=== PATIENT | male | born 1945 | race African-American/Black ===

== ENCOUNTER 2016-07-08 19:52 | Inpatient (IN) | payer BC, OTHER ==
--- NOTE | ~2016-07-08 | IDS ---
Interim Discharge Summary [facility] [address] [place]. [address] NAME: RUCHI CORMIER : 45 STATUS : ADM IN PAT#: [id number] AGE: 71 ADM/REG DATE : 07/09/16 MR#: [id number] REPORT SERV DATE: 07/19/16 DICTATED BY: LEA URIOSTEGUI DATE: 07/19/16 REPORT STATUS : Draft TRANSCRIBED BY: MODL DATE: 07/19/16 ADMISSION DATE: 07/09/2016 DISCHARGE DATE: DATE OF ICU TRANSFER: 07/09/2016. DATE OF INTERIM SUMMARY: 07/19/2016. INTERIM DIAGNOSES: 1. Acute hypoxic and hypercapnic respiratory failure. 2. Aspiration pneumonia. 3. Coronary artery disease. 4. Congestive heart failure. 5. Status post cardiac arrest on 07/16/2016. 6. Type 2 diabetes. 7. Hypoglycemia. 8. Acute renal failure. 9. Septic shock. 10.Acute encephalopathy. ICU COURSE: Please see dictated H and P and consult notes for full patient's presentation and history. BRIEF SUMMARY: The patient is a 71-year-old gentleman with a past medical history of coronary artery disease, congestive heart failure, atrial fibrillation, who initially presented to the hospital back on 07/09/2016 with some hypoglycemia and encephalopathy. This worsened shortly after admission to the floor and was accompanied by respiratory failure and concern for aspiration, and the patient was transferred to the ICU later that day, intubated for respiratory failure, and placed on the ICU. His ICU course has been complicated by septic shock, requiring intermittent vasopressors, acute renal failure, but not requiring dialysis as well as atrial fibrillation, for which Cardiology has been following and helping control. He has remained on the ventilator. At the beginning of the week when I took over, Palliative Care was seeing the patient and had talked to the patient's family, specifically the daughter, who agreed that the patient should be DNR. We had plans to extubate the patient while he was a DNR, and not reintubate him and potentially moved to comfort care if he was not going to do well. He was liberated from the ventilator on 07/16/2016 and post extubation, was not looking good. We called the family just to update them and tell them this and see if they wish to move to full comfort care. At that time, the daughter instructed us to rescind his DNR and make him full code again, and therefore we had to perform a Code Blue, because he had a bradycardic arrest. He was reintubated at that time, and placed back on the ventilator. Since then, we have gotten risk management involved to help deal with this difficult situation. For now, he still remains on the ventilator. He does have some acute encephalopathy that could be delirium, but also could be some resulting anoxic brain injury from that arrest, though he does follow commands at times, so I have a low suspicion for this. I am getting Neurology to see him today to help better assess his neurologic function. Palliative Care continues to follow Interim Discharge Summary [address] [place]. [address] NAME: RUCHI CORMIER : 45 STATUS : ADM IN [facility]#: [id number] AGE: 71 ADM/REG DATE : 07/09/16 MR#: [id number] REPORT SERV DATE: 07/19/16 DICTATED BY: LEA URIOSTEGUI DATE: 07/19/16 REPORT STATUS : Draft TRANSCRIBED BY: RANJIT DATE: 07/19/16 along with the patient as well. Otherwise, he remains on the ventilator. He is off vasopressors as his acute renal failure is stable. His heart rate is well controlled. The plan is to regroup on 07/20/2016 with Risk Management and Palliative Care talk with the family again and see exactly what they want to do. If they continue to want to proceed with full code, then likely he does need to be trached and slowly weaned from the ventilator if that is even possible or not at this time. The oncoming bander and cellophaner helper machine will take over care of the patient. Please call if you have any questions. NOLAN/RANJIT Lea Uriostegui MD / [id number] CC: Avtar Adam M.D.
--- NOTE | ~2016-07-08 | CN ---
Consultation Report [facility] [address] [place]. [address] NAME: RUCHI CORMIER : 45 STATUS : ADM IN [facility]#: [id number] AGE: 71 ADM/REG DATE : 07/09/16 MR#: [id number] REPORT SERV DATE: 07/19/16 DICTATED BY: DATE: REPORT STATUS : Draft TRANSCRIBED BY: MODL DATE: 07/19/16 NEUROLOGY CONSULTATION DATE OF CONSULTATION: 07/19/2016 REASON FOR CONSULT: Possible seizure. HISTORY OF PRESENT ILLNESS: This is a 71-year-old male with multiple medical issues and possible poor functional status prior to hospitalization, was noted to have possible aspiration pneumonia, after substitution from the patient's enteral feeding to p.o. diet, the patient was sent off. The patient in addition was also noted to have increased confusion with the patient noted to have hypoglycemic episode, was brought into the hospital during the hospitalization with having respiration difficulties, subsequently required intubation. The patient, given poor functional status, as well as a pre-existing multiple condition, was felt to have a poor prognosis. As a result, Palliative Care was consulted, who has had several extensive discussion with the family. The patient initially was placed as a DNR, was subsequently extubated and moving towards comfort, with family members retracted the EMR order and the patient subsequently had to be resuscitated secondary to bradycardia. On 07/16/2016, the patient was subsequently re-intubated, was placed on propofol, has had acute renal injury, required a Renal consult, but no dialysis. The patient was noted to have elevated BNP. Overnight, he was noted to have episodes of myoclonus. No other seizure activity was otherwise observed. No reports of seizure were otherwise recorded. No clear history of infection or recent illness prior to hospitalization. REVIEW OF SYSTEMS: Unable to be obtained secondary to the patient's intubation status. PAST MEDICAL HISTORY: The patient's past medical history is extensive, consists of type 2 diabetes, coronary artery bypass surgery, as well as atrial fibrillation and atrial flutter, with the ablation as well as AICD placement, and chronic anticoagulation prior to hospitalization. The patient, in addition, was also noted to have COPD, asthma, ischemic cardiomyopathy with coronary artery disease, and left ventricular ejection fraction of roughly 20% to 30%. The patient was also noted to have hypertension, history of pneumonia, as well as aspiration with recent cardiopulmonary resuscitation, intubation, peripheral artery disease, dyslipidemia, urinary tract infection, obstructive sleep apnea, and gastritis. FAMILY HISTORY: Significant for coronary artery disease, hypertension, dyslipidemia. The patient does have a history of previous tobacco usage, but no alcohol usage and no illicit drug usage. ALLERGIES: THE PATIENT WAS NOTED TO HAVE NO KNOWN DRUG ALLERGIES. Consultation Report [facility] [address] [place]. [address] NAME: RUCHI CORMIER : 45 STATUS : ADM IN PAT#: [id number] AGE: 71 ADM/REG DATE : 07/09/16 MR#: [id number] REPORT SERV DATE: 07/19/16 DICTATED BY: DATE: REPORT STATUS : Draft TRANSCRIBED BY: MODL DATE: 07/19/16 MEDICATIONS: At the time of evaluation, the patient's hospital medication consists of a propofol drip, Aldactone, aspirin, Colace, Dulera, DuoNeb, Proventil, Eliquis, Flomax, vancomycin, digoxin, Lipitor, melatonin, NovoLog, Protonix, Senokot, Zosyn. PHYSICAL EXAMINATION: VITAL SIGNS: At the time of evaluation, the patient was noted to have vital signs with T-max of 102.1, heart rate of 98 to 109, respiration of 17 to 26, blood pressure of 97 to 125 over 58 to 86. GENERAL: The patient is well developed, well nourished, in no acute distress. CARDIOVASCULAR: Regular rate and rhythm. No carotid bruits were otherwise auscultated. PULMONARY: Clear to auscultation bilaterally. NEUROLOGICAL EXAMINATION: Generally, the patient is intubated. He was awake, questionable, follows simple commands. At the time of evaluation, the patient does demonstrate spontaneous movement of bilateral upper and lower extremity. No clear myoclonus was observed at the time of evaluation. No seizure-like activity was observed during the evaluation. The patient was noted to be nonverbal at the time of evaluation. Cranial nerves II through XII, pupils equal, round, and reactive to light. Horizontal eye movement was noted to be trace on oculocephalic maneuver. Blink to threat response was noted in the left eye, but not in the right eye. Otherwise, the patient demonstrated corneal reflex bilaterally. Gag reflex was noted. The patient demonstrated grimace to noxious stimulation applied to bilateral jaw. The patient demonstrates spontaneous movement in bilateral upper and lower extremity, was noted to have grimace as well as withdrawal to noxious stimulation in bilateral upper and lower extremity. Hyperreflexia and mild increased tone was noted throughout bilateral upper and lower extremity at the time of evaluation. Upgoing toe on bilateral plantar reflexes. Gait and cerebellar examination is unable to be evaluated secondary to patient's current mental status. LABORATORY STUDIES: Demonstrated a white blood cell count of 19.7, hemoglobin of 8.7, hematocrit of 26.2, platelet count of 294. Chemistry panel: Sodium 144, potassium of 4.3, chloride 108, bicarb of 28, BUN of 68, creatinine 1.25, glucose of 192, calcium of 9.3, magnesium of 2.6. ABG demonstrated pH of 7.45, pCO2 of 40, pO2 of 111, bicarb of 27.4, and O2 saturation of 97.9. No neuro imaging was otherwise available. IMPRESSION: 1. Encephalopathy. 2. Seizure. The patient's medical record as well as history was reviewed. Most recently, cardiopulmonary resuscitation was performed on 07/16/2016, and the patient was subsequently re-intubated. Myoclonus jerk was noted overnight, concern for possible uremic encephalopathy, given elevated BUN level or possible metabolic disturbances or anoxic brain injury. The patient was noted to have multiple medical issues prior to hospitalization with poor functional status. Question of functional recovery as well as a future prognosis. At this time, we will obtain CT scan of the brain without Consultation Report [address] [place]. [address] NAME: RUCHI CORMIER : 45 STATUS : ADM IN [facility]#: [id number] AGE: 71 ADM/REG DATE : 07/09/16 MR#: [id number] REPORT SERV DATE: 07/19/16 DICTATED BY: DATE: REPORT STATUS : Draft TRANSCRIBED BY: MODL DATE: 07/19/16 contrast. We will obtain EEG. We will start the patient on Keppra for symptomatic myoclonus control. We will also check laboratory study. RECOMMENDATIONS: 1. Keppra 250 mg IV b.i.d. 2. EEG. 3. CT scan of the brain without contrast. 4. Ammonia, procalcitonin, vitamin B12, folate, TSH, and free T4 with morning labs. [facility]/MODL Doug Florian MD / [id number] CC: Avtar Adam M.D.
--- NOTE | ~2016-07-08 | HP ---
History And Physical [facility] [id number] [place] [place]. [address] NAME: RUCHI CORMIER : 45 STATUS : ADM [place] PAT#: [id number] AGE: 71 ADM/REG DATE : 07/09/16 MR#: [id number] REPORT SERV DATE: 07/10/16 DICTATED BY: MARILUZ RAMIREZ DATE: 07/10/16 REPORT STATUS : Draft TRANSCRIBED BY: MODL DATE: 07/10/16 DATE OF ADMISSION: 07/09/2016 This will serve as an acceptance note as we transferred the patient from the floor to the ICU. HISTORY OF PRESENT ILLNESS: Mr. Cormier is a 71-year-old with multiple medical problems who had been recovering and transitioning from feedings through the PEG tube to oral feedings, but became less responsive on the floor. A rapid response evaluation was called. Dr. Salazar from the Hospitalist Service was at the bedside. Contacted as the patient was transferred to the intensive care unit. He had become progressively more encephalopathic and less responsive throughout the day. Was more hypoglycemic. He went from walk and about in his room with assistance and being able to communicate in need to essentially becoming almost unresponsive. Upon arrival to the ICU, he was moving all extremities. He was nonfocal but profoundly encephalopathic. We then intubated and placed him on mechanical ventilation. PHYSICAL EXAMINATION: GENERAL: On exam, he was again moving all extremities but overall poorly responsive, not protecting his airway very well. HEAD: Thin frothy secretions in his oropharynx. HEENT: Normocephalic, atraumatic. NECK: Supple. No lymphadenopathy. No JVD. CHEST: Symmetric with good expansion bilaterally. He has bilateral crackles. CARDIOVASCULAR: He has S1 and S2 which are irregular. ABDOMEN: Benign. He has no edema. No clubbing. No cyanosis. ASSESSMENT AND PLAN: This patient with cardiac disease with a pacemaker, atrial fibrillation, on chronic anticoagulation, who has had an acute decompensation appears to be a combination of his cardiac disease with some pulmonary edema. Hypoglycemia noted on the floor. He is on Reglan, but has not been getting any other sedating type medications. He developed hypercapnia which would make things like pulmonary embolism less likely and was placed on mechanical ventilation. Intubation will be dictated in a separate note. The plan is for diuresis, positive pressure ventilation. Continue other maintenance medications including his anticoagulation with Eliquis for his atrial fibrillation and monitoring the intensive care unit. The patient is still full code as per family and we will monitor him in the intensive care unit. BARB/RANJIT Mariluz Ramirez M.D. / [id number] History And Physical [address] [address] NAME: RUCHI CORMIER : 45 STATUS : ADM [place] PAT#: [id number] AGE: 71 ADM/REG DATE : 07/09/16 MR#: [id number] REPORT SERV DATE: 07/10/16 DICTATED BY: MARILUZ RAMIREZ DATE: 07/10/16 REPORT STATUS : Draft TRANSCRIBED BY: RANJIT DATE: 07/10/16 CC: Chito Bazzi M.D.
--- NOTE | ~2016-07-08 | EEG ---
Electroencephalogram [facility] [address] [place]. [address] NAME: RUCHI CORMIER : 45 STATUS : ADM IN [facility]#: [id number] AGE: 71 ADM/REG DATE : 07/09/16 MR#: [id number] REPORT SERV DATE: 07/27/16 DICTATED BY: SOM BRANTLEY DATE: 07/27/16 REPORT STATUS : Draft TRANSCRIBED BY: MODEmmett DATE: 07/27/16 ELECTROENCEPHALOGRAPHY REPORT EEG NUMBER: [id number]. REASON FOR EEG: Encephalopathy. The patient remains intubated, intermittently sedated. The patient was described as awake, drowsy, sleep, and restless. Intubated off sedation in the last couple of hours prior to EEG. Video monitoring was utilized. The patient was noted to be intermittently restless, moving all four extremities. The patient was restrained. His eyes remained open. Intermittently, he would try to turn his head to the left and right. Photic stimulation was performed. The background activity consisted of moderate voltage, at times poorly organized, at times rhythmic. Theta range activity of 6-7 cycles per second located in the posterior head regions. Intermittent slower frequencies with biphasic and triphasic configuration were also noted. No paroxysmal or epileptiform activity was seen during this study. The patient's youth nutritional monitor showed atrial fibrillation, heart rate of approximately 75 to 80 beats per minute. Photic stimulation did not bring out additional abnormalities. The patient remain semi-awake and restless throughout the study. IMPRESSION: ABNORMAL EEG CHARACTERIZED BY PRESENCE OF DIFFUSE SLOWING OF CEREBRAL ACTIVITY. INTERMITTENT BIPHASIC AND TRIPHASIC WAVEFORMS SUGGEST UNDERLYING METABOLIC ENCEPHALOPATHY. THE PATIENT APPEARED TO FOCUS HIS EYES APPROPRIATELY AND MOVE ALL FOUR EXTREMITIES. THIS EEG IS COMPATIBLE WITH DIFFUSE CEREBRAL DYSFUNCTION. HOWEVER, COMPARED TO THE PREVIOUS STUDY SHOWS AN IMPROVEMENT OF OVERALL ORGANIZATION OF THE BACKGROUND ACTIVITY. CLINICAL CORRELATION IS RECOMMENDED. THIS EEG IS COMPATIBLE WITH DIFFUSE CEREBRAL DYSFUNCTION. A REPEAT EEG IS RECOMMENDED WHEN THE PATIENT REMAINS OFF SEDATION AND WHEN EXTUBATED. LORY/RANJIT Som Brantley MD / [id number] CC: DO Mehdi Collier M.D.
--- NOTE | ~2016-07-08 | EEG ---
Electroencephalogram [facility] [address] [facility] [place]. [address] NAME: RUCHI CORMIER : 45 STATUS : ADM IN PAT#: [id number] AGE: 71 ADM/REG DATE : 07/09/16 MR#: [id number] REPORT SERV DATE: 07/20/16 DICTATED BY: DATE: REPORT STATUS : Draft TRANSCRIBED BY: MODL DATE: 07/20/16 CLINICAL INDICATIONS: Encephalopathy. DESCRIPTION: This EEG was performed using 10/20 electrode placement system. During the EEG study, generalized slowing predominant occipital rhythm of roughly 5 hertz was seen. Photic stimulation was performed. No clear driving response was otherwise noted. Hyperventilation was not performed secondary to the patient's intubation status. Occasional triphasic wave was noted during the EEG study. The patient was also noted to achieve drowsy state during the EEG study. INTERPRETATION: This EEG performed during awake and drowsy state may be considered abnormal secondary to presence of generalized slowing. Otherwise, no seizure activity was noted. No electrographic seizure, seizure discharge, or focal abnormality was noted. Occasional triphasic wave was seen, concern for possible toxic metabolic etiology. Clinical correlation is recommended. [facility]/MODL Doug Florian MD / [id number] CC: Avtar Adam M.D.
--- NOTE | ~2016-07-08 | OP ---
Record Of [facility] [address] [place]. [address] NAME: RUCHI CORMIER : 45 STATUS : ADM IN [facility]#: [id number] AGE: 71 ADM/REG DATE : 07/09/16 MR#: [id number] REPORT SERV DATE: 07/16/16 DICTATED BY: LEA URIOSTEGUI DATE: 07/16/16 REPORT STATUS : Draft TRANSCRIBED BY: RANJIT DATE: 07/16/16 DATE OF PROCEDURE: 07/15/2016 TITLE OF PROCEDURE: Endotracheal intubation. INDICATION: Respiratory failure and cardiac arrest. PROCEDURE NOTE: The patient was emergently intubated during a code blue situation. No sedation was needed. The patient was easily ventilated using an Ambu bag. The MAC 4 blade was used and inserted into the oropharynx, at which time, there was a grade 2 view of the vocal cords. A 7.5-Bengali endotracheal tube was inserted and visualized going through the vocal cords. The stylet was removed. Colorimetric change was visualized on the CO2 meter. Breath sounds were heard in both lung hernández bilaterally. Endotracheal tube was placed at 22 cm, measured at the teeth. I was present for the entire procedure. Chest x-ray is ordered to assess for pneumothorax and verify endotracheal tube placement. The patient tolerated the procedure well. There were no complications. NOLAN/RANJIT Lea Uriostegui MD / [id number] CC: Avtar Adam M.D.
--- NOTE | ~2016-07-08 | IDS ---
Interim Discharge Summary [facility] [address] [place]. [address] NAME: RUCHI CORMIER : 45 STATUS : ADM IN [facility]#: [id number] AGE: 71 ADM/REG DATE : 07/09/16 MR#: [id number] REPORT SERV DATE: 08/02/16 DICTATED BY: ZELDA NAGY IV DATE: 08/02/16 REPORT STATUS : Draft TRANSCRIBED BY: RANJIT DATE: 08/02/16 ADMISSION DATE: 07/09/2016 DISCHARGE DATE: Interim discharge summary from 07/19/2016 through 08/02/2016. Updated diagnoses include: 1. Acute hypoxemic and hypercapnic respiratory failure, now status post trach on the mechanical ventilator with daily weaning trials. 2. Coagulation-negative Staphylococcus bacteremia with septic shock, resolved. 3. Aspiration pneumonia, completed therapy, now with Klebsiella, completing cefepime today. 4. Ischemic cardiomyopathy with ejection fraction 25%. 5. Status post cardiac arrest. 6. Acute encephalopathy, probably an anoxic component. 7. Seizure disorder, on medications. 8. Chronic atrial fibrillation with rate control. 9. Chronic obstructive pulmonary disease, treated with bronchodilator medication. 10.Diabetes mellitus, on insulin coverage. 11.Acute kidney injury, improved, however, with some recurrent rise in the creatinine. 12.Electrolyte abnormalities, being corrected. 13.Peripheral arterial disease. 14.Sacral decubitus with conservative care being followed by Wound Management. CONSULTANTS: Include: 1. On 07/19/2016, Neurology for possible seizure activity. 2. On 07/21/2016, Infectious Disease for a Staph bacteremia who continued to follow the patient. 3. [facility] on 07/24/2016 because of concern about vegetation, no longer following the patient. 4. On 07/24/2016, ENT, Dr. Cooper, performed tracheostomy on 07/28/2016. PROCEDURES: Include an EEG on 07/20/2016, which demonstrated generalized slowing without seizure activity, this was repeated on 07/23/2016 with similar findings. The patient had a transthoracic echocardiogram on 07/22/2016 demonstrating an ejection fraction of 15%. There was a mobile density on the anterior mitral leaflet suspicious for endocarditis for which he underwent a NIMESH on 07/27/2016, which demonstrated an ejection fraction 25%; however, with no evidence for vegetation. There was concern about a left atrial clot for which he has remained on anticoagulation therapy. The patient underwent a tracheostomy on 07/28/2016. MEDICATIONS: Aldactone 12.5 mg daily, aspirin 81 mg daily, Bumex 1 mg daily, Colace 100 mg twice a day, Coreg 12.5 mg twice a day, Dulera five puffs twice a day, DuoNebs every four hours, Eliquis 5 mg twice a day, Flomax 0.4 mg daily, Keppra 250 mg q.24 hours, Levemir 12 units twice a day, Lipitor 40 mg at bedtime, Maxipime completed today, melatonin 3 mg at bedtime, Seroquel 25 mg twice a day, and Protonix 40 mg daily. Interim Discharge Summary [address] [place]. [address] NAME: RUCHI CORMIER : 45 STATUS : ADM IN PAT#: [id number] AGE: 71 ADM/REG DATE : 07/09/16 MR#: [id number] REPORT SERV DATE: 08/02/16 DICTATED BY: ZELDA NAGY IV DATE: 08/02/16 REPORT STATUS : Draft TRANSCRIBED BY: RANJIT DATE: 08/02/16 HOSPITAL COURSE: Following the interim discharge summary on 07/19/2016, the patient had what was felt to be a possible seizure event. Neurology was consulted with EEGs demonstrating slowing, however, no evidence for seizure activity. He has remained on Keppra with again no evidence for seizure activity. He has had no improvement in his mental status. He does have his eyes open and will make eye contact, however, follows no other commands. He was on antibiotics to include vancomycin and cefepime for the Klebsiella in the sputum on tracheal aspirate as well as the recurrent coag-negative Staph on blood cultures. The both antibiotics have been completed. He has had reinstitution of his Coreg with some digoxin for rate control. He has remained anticoagulated other than transient around the time of tracheostomy, which was performed on 07/28/2016 because of persistent respiratory failure. He has had adjustments of his insulin for his diabetes with episodes of slight hypoglycemia as there has been discontinuation of his feeds. He has tolerated tube feeds, however, he has had evidence for mild ileus on KUB which has improved with stimulation of the gut with large bowel movements. He had a rise in the creatinine which subsequently improved, however, has risen recently which we will follow after discontinuation of vancomycin. He has had recurrent episodes of hyponatremia despite fairly significant volumes of free water, which have improved recently. We have instituted attempts at placement, which is currently being evaluated. The oncoming scientific writer will take over care of the patient. NM/MODL Zelda Nagy IV, M.D. / [id number] CC: DO Mehdi Collier M.D.
--- NOTE | ~2016-07-08 | CN ---
Consultation Report [facility] [address] [place]. [address] NAME: RUCHI CORMIER : 45 STATUS : ADM IN [facility]#: [id number] AGE: 71 ADM/REG DATE : 07/09/16 MR#: [id number] REPORT SERV DATE: 07/24/16 DICTATED BY: CARLEY FINLEY DATE: 07/24/16 REPORT STATUS : Draft TRANSCRIBED BY: MODEmmett DATE: 07/24/16 DATE OF CONSULTATION: 07/24/2016 SERVICE: Otolaryngology. REFERRING DIAGNOSIS: Prolonged ventilatory dependence secondary to multiple comorbidities and consultation is for placement of a tracheostomy tube. HISTORY OF PRESENT ILLNESS: This is a 71-year-old male who was admitted on 07/09, and he was intubated on 07/10 for respiratory distress, and currently is being treated for sepsis related to pneumonia. PAST MEDICAL HISTORY: Includes diabetes; coronary artery disease, status post coronary artery bypass grafting in the ; atrial fibrillation; COPD; asthma; hypertension; and peripheral artery disease. PAST SURGICAL HISTORY: As above plus placement of an AICD, cholecystectomy, and right leg surgery. SOCIAL HISTORY: He is a former smoker. His alcohol history is unclear. ALLERGIES: HE HAS NO KNOWN DRUG ALLERGIES. PHYSICAL EXAMINATION: On physical exam, he is sedated on the ventilator. He has normal palpable midline anatomy, very thin neck. ASSESSMENT: Prolonged ventilatory dependence in a 71-year-old male with multiple comorbidities and poor cardiac function. The patient is going for a NIMESH for evaluation of vegetations on the mitral valve next Wednesday. Plan would be if his clinical situation continues to be stable to place a trach on Wednesday morning or Wednesday afternoon. I discussed this briefly with the patient's family members at bedside. To note, they were not the medical decision making family members. I will follow up with the patient again over the course of the time between now and then to reassess the clinical condition. Thank you for this consult. If there are any questions, do not hesitate to call [phone]. JAKY/RANJIT Carley Finley MD / [id number] Consultation Report [place] [address] [place]. [address] NAME: RUCHI CORMIER : 45 STATUS : ADM IN PAT#: [id number] AGE: 71 ADM/REG DATE : 07/09/16 MR#: [id number] REPORT SERV DATE: 07/24/16 DICTATED BY: CARLEY FINLEY DATE: 07/24/16 REPORT STATUS : Draft TRANSCRIBED BY: MODL DATE: 07/24/16 CC: DO Mehdi Collier M.D.
--- NOTE | ~2016-07-08 | OP ---
Record Of Operation [facility] [address] [place]. [address] NAME: RUCHI CORMIER : 45 STATUS : ADM IN PAT#: [id number] AGE: 71 ADM/REG DATE : 07/09/16 MR#: [id number] REPORT SERV DATE: 07/28/16 DICTATED BY: CARLEY FINLEY DATE: 07/28/16 REPORT STATUS : Draft TRANSCRIBED BY: MODL DATE: 07/28/16 DATE OF PROCEDURE: 07/28/2016 SERVICE: Otolaryngology. PREOPERATIVE DIAGNOSIS: Prolonged ventilatory dependence. POSTOPERATIVE DIAGNOSIS: Prolonged ventilatory dependence. PROCEDURE: Tracheostomy. ANESTHESIA: General endotracheal anesthesia. COMPLICATIONS: None. SPECIMENS: None. FINDINGS: The patient had normal midline neck anatomy. STATEMENT OF MEDICAL NECESSITY: This is a 71-year-old male who has been intubated for greater than 14 days. He failed weaning attempts with very severe coronary artery disease and poor ejection fraction. My service was consulted for tracheostomy with the thought that the patient was going to require long-term ventilation. STATEMENT OF OPERATION: The patient was brought to the operating room in supine position and transferred to the operating room table. All pressure points were padded and anesthesia was established. The neck was placed in slight extension with a shoulder roll. He was then prepped and draped in usual fashion. A midline incision was made over the cricoid cartilage with a Bovie cautery. Bovie cautery was then used to dissect in the midline down to the cricoid cartilage. Once in the cricoid cartilage, a small tonsil dissecting clamp was inserted between the anterior tracheal wall and the thyroid isthmus. The isthmus was then divided with the Bovie electrocautery. Army-Boley were used to retract the thyroid lobes to either side of the neck and a cricoid hook was placed in the under surface of the cricoid cartilage and the trachea was elevated into the wound. An incision was made between the second and third tracheal ring. A Saad flap was fashioned and secured to the skin. The endotracheal tube was then advanced so that the distal tip was at the proximal tracheostomy site. A Shiley #8 cuffed trach was then placed under direct visualization into the trachea. The balloon was inflated and the anesthesia circuit was hooked up. The patient had adequate end-tidal CO2 and tidal volumes. Once this was confirmed, the trach was secured with 2-0 nylon sutures and a soft trach collar. He tolerated procedure well without complications and was transferred back to the CCU in stable condition. PS/MODL Record Of [place] [address] [place]. [address] NAME: RUCHI CORMIER : 45 STATUS : ADM IN PAT#: [id number] AGE: 71 ADM/REG DATE : 07/09/16 MR#: [id number] REPORT SERV DATE: 07/28/16 DICTATED BY: CARLEY FINLEY DATE: 07/28/16 REPORT STATUS : Draft TRANSCRIBED BY: RANJIT DATE: 07/28/16 Carley Finley MD / [id number] CC: DO Mehdi Collier M.D.
--- NOTE | ~2016-07-08 | HP ---
History And Physical [place] [id number] [facility] [place]. [address] NAME: RUCHI CORMIER : 45 STATUS : ADM [place] PAT#: [id number] AGE: 71 ADM/REG DATE : 07/09/16 MR#: [id number] REPORT SERV DATE: 07/09/16 DICTATED BY: XIOMY SINGH DATE: 07/09/16 REPORT STATUS : Draft TRANSCRIBED BY: MODL DATE: 07/09/16 DATE OF ADMISSION: 07/09/2016 CHIEF COMPLAINT: Low blood sugars and mild confusion. HISTORY OF PRESENT ILLNESS: The patient is a 71-year-old male, who presents after having been in discussion with his niece, who reported the patient had kind of confusion episode and was found to have low blood sugars. The patient was slightly not at his baseline that has been constant, moderate in severity. No pain radiating symptoms, but did have occasional shortness of breath and confusion, but no chest pain, nausea, vomiting, diarrhea, or constipation. There are no worsening symptoms, but symptoms were relieved after given blood glucose; however, the patient has required three multiple amps of D50 as his blood glucose levels have been as low as reported in the 20s, noted in the 50s to low 100s here, now at 158. The patient reports that he is back to his baseline, feeling much better. The patient incidentally has also had mildly increased BNP, but is not hypovolemic or hypervolemic. The patient was apparently in transition of increasing p.o. intake, but appears to be on the same amount of insulin and the patient reports he has not quite been eating as well due to his chronic dysphagia. REVIEW OF SYSTEMS: For additional review of systems: GENERAL: No fever, chills currently. EYES: No visual changes or pain. ENT: No ear pain or congestion. NEUROLOGIC: Did have occasional confusion, but no headache. SKIN: Does have skin breakdown on his bottom, but no bruising. RESPIRATORY: Did have shortness of breath, but no wheezing. CV: No chest pain or tachycardia. GI: No nausea, vomiting. : Did have mild dysuria and Whelan placed. No discharge. MUSCULOSKELETAL: Does have myalgias and arthralgias at his baseline. ENDOCRINE: No fatigue or polyuria, but did have low blood sugar. HEME: No bleeding or bruising acutely. IMMUNOLOGIC: No rhinorrhea. PSYCHIATRIC: No anxiety, but did have occasional confusion, but has resolved back to his baseline after blood sugar correction. PAST MEDICAL HISTORY: Type 2 diabetes, CABG history, AFib/flutter with ablation by Dr. Morris, AICD on chronic anticoagulation, obstructive lung disease from COPD, asthma combination, ischemic cardiomyopathy, coronary artery disease with LVEF 20-30%, hypertension, pneumonia history secondary to aspiration with G-tube, peripheral arterial disease, dyslipidemia, UTIs, obstructive sleep apnea, gastritis. PAST SURGICAL HISTORY: CABG in 1989, AICD, cholecystectomy, ablation, right leg surgery, and G-tube placement. History And Physical [address] [address] NAME: RUCHI CORMIER : 45 STATUS : ADM [place] PAT#: [id number] AGE: 71 ADM/REG DATE : 07/09/16 MR#: [id number] REPORT SERV DATE: 07/09/16 DICTATED BY: XIOMY SINGH DATE: 07/09/16 REPORT STATUS : Draft TRANSCRIBED BY: RANJIT DATE: 07/09/16 SOCIAL HISTORY: Prior smoker, has since quit. No acute alcohol currently or illicits. FAMILY HISTORY: Coronary artery disease, hypertension, dyslipidemia. ALLERGIES: NO KNOWN DRUG ALLERGIES. MEDICATIONS: Tylenol, Ventolin, albuterol, Eliquis, aspirin, Lipitor, Symbicort, Coreg, docusate, folic acid, Lasix, NovoLog, Toujeo, Zenpep, Prinivil, Nitrostat, Zofran, Senokot, sodium bicarb, Aldactone, and p.r.n. glucose tablets. PHYSICAL EXAMINATION: VITAL SIGNS: The patient's blood pressure 119/76, pulse 85, respirations 16, O2 sats 94% on room air. GENERAL: No acute distress. Calm, pleasant, well developed, well nourished. EYES: No scleral icterus. EOMI. ENT: Mildly dry mucous membranes. Tongue midline. RESPIRATORY: Clear to auscultation. No wheezes, rales CV: Regular rate. No rubs or gallops. No JVD. No pedal edema. GI: Soft, nontender, nondistended. G-tube in place. : Does have Whelan, currently normal external genitalia. MUSCULOSKELETAL: Does have occasional abrasions on anterior skin. Mild atrophy in extremities. SKIN: Warm, dry. Does have sacral decubs. LYMPHATIC: No lymphedema at this time in lower extremities. HEME: No acute bleeding or bruising. NEUROLOGIC: Alert and oriented. Appears back to baseline. Appropriate responses. Symmetrical cord splicer bilaterally. Normal vocal ariel. PSYCHIATRIC: Appropriate mood and affect. Pleasant and calm. LABORATORY DATA: Lactate 2.1. BNP 832.7. Current glucose 158, on arrival 72. CBC; WBC count 7.7, H and H 11.3 and 34.1, platelets 323. Urinalysis, negative leukocyte esterase and nitrites. CMP; sodium 136, potassium 4.4, chloride 95, bicarb 33, BUN and creatinine 20 and 0.58, glucose 75. Troponin 0.03. LFTs within normal limits. Alk phos 94, T-bili 1.0. EKG, none currently on chart. ASSESSMENT: 1. Hypoglycemia. 2. Congestive heart failure. 3. Diabetes type 2. 4. Chronic obstructive pulmonary disease. 5. Atrial flutter. 6. Decubitus ulcers. PLAN: 1. For hypoglycemia, the patient appears to have been in transition from diet from his tube feeds to increased p.o. intake; however, possibly still on same insulin schedule and with decreased actual p.o. intake with resultant hypoglycemia. The patient has History And Physical [address] [place]. [address] NAME: RUCHI CORMIER : 45 STATUS : ADM [place] PAT#: [id number] AGE: 71 ADM/REG DATE : 07/09/16 MR#: [id number] REPORT SERV DATE: 07/09/16 DICTATED BY: XIOMY SINGH DATE: 07/09/16 REPORT STATUS : Draft TRANSCRIBED BY: MODL DATE: 07/09/16 responded to glucose tablets, but has required multiple doses in the emergency room. We will monitor overnight, have diabetic education. Nutrition evaluate diet regimen and insulin regimen. Currently, hold all insulin regimen with before meals and at bedtime and 2 o'clock blood sugar checks. 2. CHF, not in acute exacerbation. Continue home medications. Evaluate I's and O's. 3. Diabetes type 2. Will likely need decrease of home dose diabetic education for evaluation as p.o. intake evaluated. 4. COPD compensated. 5. Atrial fibrillation on anticoagulation. Rate acceptable at this time. 6. Decubitus ulcers. Wound Care to evaluate. All questions answered to the patient. DISPOSITION: Pending evaluation for nutrition, diabetic education, stability of blood sugar, electrolytes and wound care evaluation. DDN/MODL Xiomy Singh MD / [id number] CC: Xiomy Singh MD
--- NOTE | ~2016-07-08 | OP ---
Record Of Operation [facility] [address] [place]. [address] NAME: RUCHI CORMIER : 45 STATUS : ADM [place] PAT#: [id number] AGE: 71 ADM/REG DATE : 07/09/16 MR#: [id number] REPORT SERV DATE: 07/10/16 DICTATED BY: MARILUZ RAMIREZ DATE: 07/10/16 REPORT STATUS : Draft TRANSCRIBED BY: MODL DATE: 07/10/16 DATE OF PROCEDURE: PROCEDURE PERFORMED: Oroendotracheal intubation. INDICATION: Poor responsiveness with impending respiratory failure. The patient was hypercapnic. DESCRIPTION OF PROCEDURE: The patient received 10 mL of IV propofol. Using a GlideScope #4 blade, we were able to directly visualize the vocal cords which were unimpeded and he had frothy clear secretions pooled in the back of his throat as well as some noted coming up the ET tube after intubation. We were able to advance to size 8 oroendotracheal tube beyond the vocal cords without difficulty. There was good color change on an end-tidal CO2 indicator, good auscultation of breath sounds bilaterally, and good oxygenation. We had good direct visualization of the tube being advanced beyond the vocal cords with the GlideScope and there were no complications. IMPRESSION: Successful oroendotracheal intubation for respiratory failure. BARB/RANJIT Mariluz Ramirez M.D. / [id number] CC: Chito Bazzi M.D.
--- NOTE | ~2016-07-08 | CN ---
Consultation Report [address] [place]. [address] NAME: RUCHI CORMIER : 45 STATUS : ADM IN PAT#: [id number] AGE: 71 ADM/REG DATE : 07/09/16 MR#: [id number] REPORT SERV DATE: 07/24/16 DICTATED BY: DALE MENESES DATE: 07/24/16 REPORT STATUS : Draft TRANSCRIBED BY: MODL DATE: 07/24/16 CONSULTATION DATE OF CONSULTATION: 07/24/2016 PRIMARY EXCEPTIONAL CHILDREN TEACHER ASSISTANT: Dr. Adalberto Olivares. REASON FOR CONSULTATION: Transesophageal echocardiogram evaluation, questionable infectious endocarditis. HISTORY OF PRESENT ILLNESS: Mr. Cormier is a 71-year-old gentleman with a history of atrial flutter, status post ablation, CAD, status post CABG (1989), status post PCI (2014), COPD, diabetes, hypertension, and hyperlipidemia, who was initially admitted approximately two weeks ago with respiratory failure in the setting of aspiration pneumonia. He has had a very complicated hospital stay with ongoing respiratory failure as well as temporary DNR status per palliative care that was eventually reversed by family, now with vent dependent respiratory status, likely to get a trach in the near future. He has been found to have Staph epidermidis, bacteremia, and has been evaluated by Infectious Disease with a request for completion of a transesophageal echocardiogram for evaluation of endocarditis as well as possible lead infection from his device. The patient has significant cardiac history as stated above, in addition he has ischemic cardiomyopathy and has a defibrillator implanted. PAST MEDICAL HISTORY: As above. SOCIAL HISTORY: Unable to obtain as the patient is sedated and intubated. He is known to be a prior tobacco smoker. FAMILY HISTORY: Not able to be obtained secondary to the patient being sedated and intubated. REVIEW OF SYSTEMS: Not able to obtain as the patient is sedated and intubated. HOME MEDICATIONS: 1. Tylenol. 2. Albuterol. 3. Eliquis. 4. Aspirin. 5. Atorvastatin. 6. Symbicort. 7. Coreg. 8. Colace. 9. Folate. 10.Lasix. Consultation Report [address] [place]. [address] NAME: RUCHI CORMIER : 45 STATUS : ADM IN PAT#: [id number] AGE: 71 ADM/REG DATE : 07/09/16 MR#: [id number] REPORT SERV DATE: 07/24/16 DICTATED BY: DALE MENESES DATE: 07/24/16 REPORT STATUS : Draft TRANSCRIBED BY: RANJIT DATE: 07/24/16 11.Insulin. 12.Lisinopril. 13.Nitroglycerin. 14.Zofran. 15.Senna. 16.Sodium bicarbonate. 17.Aldactone. PHYSICAL EXAMINATION: VITAL SIGNS: Blood pressure 132/71, pulse 84, temperature 99.2. GENERAL: Sedated, intubated, not responsive. NEURO: Sedated, unable to determine whether he has any focal deficits at this time. RESPIRATORY: Stable on the ventilator with transmitted breath sounds bilaterally, possibly rales. He does have decreased breath sounds throughout. CARDIOVASCULAR: Irregularly irregular. No obvious murmurs, rubs, or gallops. ABDOMEN: Soft, nontender, nondistended. No rebound or guarding. He does have a PEG tube in place. EXTREMITIES: Without edema. Note, dry gangrenous changes in his right fifth toe. PERTINENT TEST FINDINGS: Echocardiogram with severely decreased left ventricular systolic function with an estimated ejection fraction of 25%. Dilated left ventricle. Moderately decreased RV systolic function. ICD lead seen in the RV. Small mobile echodensity on the anterior mitral leaflet, possibly degenerative changes versus vegetation. Mild TR. Mykwcjzh-xz-kmqvvg [place] and a dilated left atrium, otherwise potassium 4.8, creatinine 0.89, glucose 166, white blood cell count 15.1, hemoglobin 8.9, troponin 0.03 from 07/08/2016 and EKG from 07/10/2016 on the chart shows probable atrial flutter with variable block as well as lateral T-wave inversions and inferior T-wave inversions. IMPRESSION AND PLAN: Mr. Cormier is a 71-year-old gentleman with history of atrial flutter and atrial fibrillation, coronary artery disease, status post bypass and PCI, ischemic cardiomyopathy that is severe, status post ICD, who presented to [facility] approximately two weeks ago with respiratory failure in the setting of aspiration, now with persistent Staph bacteremia and questionable infectious endocarditis. We have arranged for him to be n.p.o. after midnight on Wednesday (tube feeds to be turned off), and to proceed with a transesophageal echocardiogram as per Infectious Disease's request on Wednesday to definitively rule out endocarditis. Otherwise, we recommend continued antibiotics per the primary team for sepsis as well as appropriate support from a respiratory standpoint given ongoing respiratory failure. He has an overall poor prognosis. It will be fine to continue his cardiovascular medications, otherwise without any modification. VR/RANJIT Dale Consultation Report [place] [id number] [facility]. [address] NAME: RUCHI CORMIER : 45 STATUS : ADM IN PAT#: [id number] AGE: 71 ADM/REG DATE : 07/09/16 MR#: [id number] REPORT SERV DATE: 07/24/16 DICTATED BY: DALE MENESES DATE: 07/24/16 REPORT STATUS : Draft TRANSCRIBED BY: MODEmmett DATE: 07/24/16 MD Veronica / [id number] CC: DO Mehdi Collier M.D.
--- NOTE | ~2016-07-08 | CN ---
Consultation Report [facility] [address] [place]. [address] NAME: RUCHI CORMIER : 45 STATUS : ADM IN [facility]#: [id number] AGE: 71 ADM/REG DATE : 07/09/16 MR#: [id number] REPORT SERV DATE: 07/21/16 DICTATED BY: GABE JAMES DATE: 07/21/16 REPORT STATUS : Draft TRANSCRIBED BY: MODL DATE: 07/21/16 INFECTIOUS DISEASE CONSULT DATE OF CONSULTATION: REASON FOR CONSULT: Leukocytosis and bacteremia. HISTORY OF PRESENT ILLNESS: This is a 71 years old black man with a history of coronary artery disease, status post CABG; ischemic cardiomyopathy and atrial fibrillation, status post AICD in 2014; COPD; diabetes; hypertension; peripheral vascular disease; sleep apnea; who is at his third admission this year, this time for hypoglycemia and confusion. He was here in May, apparently with weight loss, dyspnea on exertion, cough and abdominal pain. As far as I can understand, he was treated for pneumonia and pyelonephritis. Although, I do not find any positive urine culture at that time. He was readmitted between 06/21/2016 and 07/01/2016 with weeping edematous legs, anasarca. He had respiratory failure, was intubated. Two blood cultures grew methicillin-sensitive Staph epidermidis. PEG tube was placed. It was noted he had a stage II sacral decubitus. He was discharged to senior care. He was readmitted here on 07/08/2016 or 07/09/2016 with hypoglycemia and confusion. He had no leukocytosis. Creatinine was 0.5. Lactic acid 2.1. Blood cultures were negative. C. diff test was negative. On 07/10/2016, apparently he became unresponsive, had hypercapnia. He was transferred to ICU and intubated. Developed shock, renal insufficiency and atrial fibrillation. A PICC line was placed and was given Zosyn and vancomycin. Blood cultures at that time were negative as I mentioned. Sputum culture grew normal fitz. Vancomycin was stopped on 07/13/2016, the Zosyn was continued. Given his overall condition, on 07/15/2016 it was decided to extubate him and pursue comfort care, but his POA backed off after that and rescinded the DNR order. The patient developed bradycardia and had to be coded and intubated again. He then had fevers on 07/17/2016, and sputum cultures grew abundant yeast and sparse sensitive Klebsiella. One of two blood cultures from a peripheral stick grew coagulase-negative Staph. He had fever again on 07/19/2016 when again one of two blood cultures from a peripheral stick grew coagulase- negative Staph. Vancomycin was added. There were some myoclonic movements, so Neurology was consulted. The EEG showed slowing. CT of the head showed some ethmoid secretions. He has had leukocytosis for the last three to four days. Chest x-ray shows some congestive changes. Lab work suggests some dehydration with sodium of 150, creatinine 1.3, and BUN 91. Yesterday procalcitonin was 0.7. He has not had recent bowel movements, although he is on tube feeding. Not a lot of respiratory secretions are described. He is off sedation, and he moves his extremities, but does not seem to communicate. Consultation Report [address] [place]. [address] NAME: RUCHI CORMIER : 45 STATUS : ADM IN [facility]#: [id number] AGE: 71 ADM/REG DATE : 07/09/16 MR#: [id number] REPORT SERV DATE: 07/21/16 DICTATED BY: GABE JAMES DATE: 07/21/16 REPORT STATUS : Draft TRANSCRIBED BY: RANJIT DATE: 07/21/16 PAST MEDICAL HISTORY: As I mentioned above, plus some right leg surgery and I think it might have been a right ankle surgery based on the scar. Had a laparoscopic cholecystectomy in March 2016. SOCIAL HISTORY: Cannot be obtained. According to the chart, at some point in the past, he consumed alcohol and smoked cigarettes. ALLERGIES: NONE LISTED. FAMILY HISTORY: Heart disease and hypertension. MEDICATIONS ON ADMISSION: Albuterol, Eliquis, aspirin, Lipitor, Symbicort, carvedilol, docusate, folic acid, Lasix, insulin, pancreatic enzymes, lisinopril, Senokot at bedtime, sodium bicarbonate used as needed to unclog the gastric tube, and spironolactone. PHYSICAL EXAMINATION: HEENT: I cannot examine his oral mucosa. He is intubated. Sclerae are white. He seems to move his extremities. HEART: Irregular rhythm. Grossly no murmurs. ICD pocket, without swelling or redness. LUNGS: With diffuse rales. ABDOMEN: Compressible. Seems nontender to palpation. : Whelan catheter with dark-yellow urine. Sacral area with large area of epidermal necrosis, does not appear deep. HANDS: There was one right finger that has a dark spot on the nail. Right arm PICC line with a Biopatch. ASSESSMENT/PLAN: 1. Coagulase-negative Staph bacteremia on 07/17/2016 and 07/19/2016, but each one had just one of two specimens collected from a peripheral stick. Interestingly, he had methicillin sensitive Staph epidermidis bacteremia in June 2016. 2. Respiratory failure, on ventilator. 3. Leukocytosis. 4. He appears to be dehydrated. 5. Sacral decubitus as described. 6. Coronary artery disease, status post CABG; and ischemic cardiomyopathy with congestive heart failure, status post AICD. 7. History of diabetes, hypertension, peripheral vascular disease, and chronic obstructive pulmonary disease. Need to further identify the coagulase negative Staph. See if identical strains, especially with all the positive cultures showed the same organism, would be concerned about the AICD wire infection or other form of endocarditis. I am going to request an echocardiogram. He has been on Zosyn since admission, it is about 11 days and I think it could be stopped by now. We will follow up procalcitonin and a chest x-ray. Free water was added. Overall the prognosis is guarded given the multitude of medical problems. Consultation Report [address] [place]. [address] NAME: RUCHI CORMIER : 45 STATUS : ADM IN [facility]#: [id number] AGE: 71 ADM/REG DATE : 07/09/16 MR#: [id number] REPORT SERV DATE: 07/21/16 DICTATED BY: GABE JAMES DATE: 07/21/16 REPORT STATUS : Draft TRANSCRIBED BY: MODEmmett DATE: 07/21/16 MAGDA/RANJIT Gabe James M.D. / [id number] CC: Avtar Adam M.D.
--- NOTE | ~2016-07-08 | TEE ---
Transesophageal Echocardiogram [facility] [address] [place]. [address] NAME: RUCHI CORMIER : 45 STATUS : ADM IN [facility]#: [id number] AGE: 71 ADM/REG DATE : 07/09/16 MR#: [id number] REPORT SERV DATE: 07/27/16 DICTATED BY: BALA GODINEZ DATE: 07/27/16 REPORT STATUS : Draft TRANSCRIBED BY: MODEmmett DATE: 07/27/16 TRANSESOPHAGEAL ECHOCARDIOGRAM. REASON FOR CONSULTATION: Bacteremia. PROCEDURE: After questions were answered and consents were signed, the patient was sedated with propofol per Anesthesia. The probe was placed in mid esophagus, and then finally into the stomach. Images were obtained without difficulty, and the patient tolerated the procedure well. He is recovering in the CCU. 2D INTERPRETATION: The left ventricular function was severely decreased globally on multiple views. Estimated ejection fraction is in the 25% range. The mitral valve was well visualized in multiple views. The leaflets are minimally thickened, but no prolapse was noted. No vegetation was seen. There was mild mitral regurgitation. This was a central jet. The left atrium was enlarged. Spontaneous echo contrast was noted in the left atrium and in the left atrial appendage with sludge appearing in the left atrial appendage suspicious for left atrial appendage clot. The interatrial septum was visualized in multiple views. There was no obvious color flow across the interatrial septum to suggest a PFO or ASD. The right atrium was normal in size. Catheters were noted related to a PICC line and defibrillator. No vegetations were noted on these lines. The tricuspid valve structurally was normal with no sign of vegetation. The right ventricle was normal in size and function. The aortic valve was trileaflet and was visualized in multiple views. Trace aortic insufficiency was noted. The pulmonic valve was visualized relatively well and the leaflets were seen. No obvious vegetation was seen. Mild pulmonic insufficiency was noted. The pericardium was grossly normal with no sign of pericardial effusion. The pleural effusion was noted. Moderate atherosclerotic plaquing was noted in the descending aorta and in the aortic arch. CONCLUSION: 1. SEVERELY DECREASED LEFT VENTRICULAR SYSTOLIC FUNCTION WITH ESTIMATED LVEF OF 25%. NO OBVIOUS VEGETATION NOTED ON ANY VALVE OR PACER WIRE OR LEFT ATRIAL APPENDAGE CATHETER. THESE WERE RELATIVELY WELL VISUALIZED. 2. PROBABLE LEFT ATRIAL APPENDAGE CLOT VERSUS SEVERE LOW FLOW. 3. MILD MITRAL AND PULMONIC INSUFFICIENCY. 4. MODERATE ATHEROSCLEROTIC PLAQUING IN THE AORTA AND AORTIC ARCH. WO/MODL Bala Godinez M.D., Ph.D, F.A.C.C. / [id number] CC: Jermaine Leonardo, DO Transesophageal Echocardiogram [address] [address] NAME: RUCHI CORMIER : 45 STATUS : ADM IN [facility]#: [id number] AGE: 71 ADM/REG DATE : 07/09/16 MR#: [id number] REPORT SERV DATE: 07/27/16 DICTATED BY: BALA GODINEZ DATE: 07/27/16 REPORT STATUS : Draft TRANSCRIBED BY: MODL DATE: 07/27/16 Mehdi Roberto M.D.
[~2016-07-08 19:52] MED LIST: ACTOPLUS M15 MG/850 PO; ALB4 PO; ASAB PO; BETAPACE80 PO; C5; CENTRUM TAB1 TAB PO; CORDARONE PO; COREG12 PO; COREG25 PO; COREG6 PO; DIABETA5 PO; DIGITEK0.25 MG PO; ELIQUIS 5 MG TAB5 MG PO; FISH-EPA1000 MG PO; FLONASE NAS; FORTAMET500 MG PO; GLUCOPHXR PO; GLUCOPHXR7 PO; HUMI PO; IMDUR30 PO; KLOR-CON 1010 MEQ PO; L40 PO; LIPITOR10 PO; LIPITOR20 PO; LIPITOR40 PO; MULTIVITAMI1 PO; NAP500 PO; NITROSTAT0.4 MG SL; NOVOLOG SC; OYST-CAL500 MG PO; PLAVIX PO; PRIN10 PO; PRIN2.5 PO; PRIN5 PO; PROAIR HFA INH; PROTONIX PO; PROVHFA INH; SPIRO25 PO; SYMBICORT 160/41 INH INH; SYMBICORT INH; TOUJEO SC; ULTRAM50 PO; VENTOLIN HFA INH; VICTOZA18 MG/3 ML SC; ZESTRIL10 MG PO; ZITH250 PO; ZOFRAN8 PO
[2016-07-08 20:53] LABS: BASOPHILS 0.6 %; BASOPHILS ABSOLUTE 0.05 10/3/uL (0.0-0.16); EOSINOPHILS 2.2 %; EOSINOPHILS ABSOLUTE 0.17 10/3/uL (0.0-0.53); HEMATOCRIT 34.1 % (40.0-51.0); HEMOGLOBIN 11.3 g/dL (13.6-17.8); IMMATURE GRANULOCYTES 0.5 %; IMMATURE GRANULOCYTES ABSOLUTE 0.04 10/3/uL (0.0-0.11); LYMPHOCYTES ABSOLUTE 2.86 10/3/uL (0.67-4.30); MEAN CORPUSCULAR HEMOGLOB 31.6 pg (26.0-34.0); MEAN CORPUSCULAR VOLUME 95.3 fL (80-100); MEAN PLATELET VOLUME 11.5 fL (9.2-13.0); MONOCYTES 18.9 %; MONOCYTES ABSOLUTE 1.46 10/3/uL (0.21-1.20); NEUTROPHILS 40.8 %; NEUTROPHILS ABSOLUTE 3.14 10/3/uL (2.02-8.40); RBC DISTRIBUTION WIDTH 16.3 % (12.0-16.0); RED CELL COUNT 3.58 10/6/uL (4.7-6.1); WHITE BLOOD CELLS 7.7 10/3/uL (4.5-10.5)
[2016-07-08 20:54] LABS: MANUAL DIFF NO %; MEAN CORPUS HGB CONC 33.1 g/dL (32.0-36.0); PLATELET COUNT 323 10/3/uL (150-400)
[2016-07-08 20:57] LABS: ASCORBIC ACID (UR NOT ORDER) 20 (NEG); BILIRUBIN, URINE NEGATIVE (NEG); ER URINALYSIS TAT 0 Hrs 08 Mins; KETONE, URINE NEGATIVE (NEG); LEUKOCYTE ESTERASE(NOT OR NEG (NEG); NITRITE (URINE) NEG (NEG); WBC (NOT ORDERED) (RFLEX) 1 (0-5)
[2016-07-08] MEDS ORDERED: NOVOLOG SC (22:30)
[2016-07-08] MEDS ORDERED: TOUJEO SC (22:30)
[2016-07-08] MEDS ORDERED: T PEG (22:31)
[2016-07-08] MEDS ORDERED: NITROSTAT0.4 MG SL (22:33)
[2016-07-08] MEDS ORDERED: ZENPEP5000 UNIT PEG (22:34)
[2016-07-08] MEDS ORDERED: SB325 PEG (22:35)
[2016-07-08] MEDS ORDERED: ZOFRAN8 PEG (22:35)
[2016-07-08] MEDS ORDERED: DIOCTO50 MG/5 ML PEG (22:36)
[2016-07-08] MEDS ORDERED: COREG12 PEG (22:36)
[2016-07-08] MEDS ORDERED: SPIRO25 PEG (22:36)
[2016-07-08] MEDS ORDERED: FOLIC PEG (22:36)
[2016-07-08] MEDS ORDERED: PRIN2.5 PEG (22:37)
[2016-07-08] MEDS ORDERED: ASAB PEG (22:37)
[2016-07-08] MEDS ORDERED: LIPITOR40 PEG (22:37)
[2016-07-08] MEDS ORDERED: L40 PEG (22:38)
[2016-07-08] MEDS ORDERED: SYMBICORT 160/41 INH INH (22:38)
[2016-07-08] MEDS ORDERED: VENTOLIN HFA INH (22:39)
[2016-07-08] MEDS ORDERED: SENTAB PEG (22:39)
[2016-07-08] MEDS ORDERED: DUONEB INH (22:39)
[2016-07-08] MEDS ORDERED: ELIQUIS 2.5 MG2.5 MG PEG (22:40)
[2016-07-08] MEDS ORDERED: [UNRECOGNIZED DRUG - OTHER] PO (22:43)
[2016-07-08 22:44] LABS: A/G RATIO 0.5 (0.7-1.9); ALBUMIN 2.3 G/DL (3.5-5.0); CALCIUM, SERUM 9.2 MG/DL (8.5-10.4); CHLORIDE, SERUM 95 MMOL/L (96-112); CO2 (CARBON DIOXIDE) 33 MMOL/L (24-34); CREATININE 0.58 MG/DL (0.70-1.30); GFR AFRICAN AMERICAN 119 ML/MIN (>=60); GFR NON AFRICAN AMERICAN 103 ML/MIN (>=60); GLOBULIN 5.1 G/DL (2.5-4.1); POTASSIUM, SERUM 4.4 MMOL/L (3.5-5.3); SGOT(AST) 34 U/L (5-40); SGPT(ALT) 26 U/L (5-65); SODIUM, SERUM 136 MMOL/L (135-148); TOTAL PROTEIN 7.4 G/DL (6.0-8.5); TROPONIN I 0.03 NG/ML (<0.05)
[2016-07-08 22:45] LABS: ALKALINE PHOSPHATASE 94 U/L (45-117); BUN (BLOOD UREA NITROGEN) 20 MG/DL (6-23); GLUCOSE, SERUM 75 MG/DL (60-99)
[2016-07-09 09:14] LABS: BASOPHILS 0.2 %; BASOPHILS ABSOLUTE 0.01 10/3/uL (0.0-0.16); EOSINOPHILS 2.3 %; EOSINOPHILS ABSOLUTE 0.15 10/3/uL (0.0-0.53); ER CBC TAT 0 Hrs 00 Mins; HEMATOCRIT 31.4 % (40.0-51.0); HEMOGLOBIN 10.1 g/dL (13.6-17.8); IMMATURE GRANULOCYTES 0.2 %; IMMATURE GRANULOCYTES ABSOLUTE 0.01 10/3/uL (0.0-0.11); LYMPHOCYTES 21.9 %; LYMPHOCYTES ABSOLUTE 1.45 10/3/uL (0.67-4.30); MEAN CORPUS HGB CONC 32.2 g/dL (32.0-36.0); MEAN CORPUSCULAR HEMOGLOB 30.3 pg (26.0-34.0); MEAN CORPUSCULAR VOLUME 94.3 fL (80-100); MEAN PLATELET VOLUME 11.6 fL (9.2-13.0); MONOCYTES 13.4 %; MONOCYTES ABSOLUTE 0.89 10/3/uL (0.21-1.20); NEUTROPHILS ABSOLUTE 4.12 10/3/uL (2.02-8.40); PLATELET COUNT 339 10/3/uL (150-400); RBC DISTRIBUTION WIDTH 16.1 % (12.0-16.0); RED CELL COUNT 3.33 10/6/uL (4.7-6.1); WHITE BLOOD CELLS 6.6 10/3/uL (4.5-10.5)
[2016-07-09 09:18] LABS: MANUAL DIFF NO %
[2016-07-09 09:25] LABS: BUN (BLOOD UREA NITROGEN) 15 MG/DL (6-23); CALCIUM, SERUM 8.7 MG/DL (8.5-10.4); CHLORIDE, SERUM 93 MMOL/L (96-112); CO2 (CARBON DIOXIDE) 38 MMOL/L (24-34); CREATININE 0.45 MG/DL (0.70-1.30); GFR AFRICAN AMERICAN 132 ML/MIN (>=60); GFR NON AFRICAN AMERICAN 114 ML/MIN (>=60); GLUCOSE, SERUM 132 MG/DL (60-99); POTASSIUM, SERUM 4.4 MMOL/L (3.5-5.3); SODIUM, SERUM 137 MMOL/L (135-148)
[2016-07-10 04:23] LABS: BE (BASE EXCESS) 2.9 MEQ/L (0 +/- 2.5); CARBOXYHEMOGLOBIN 0.9 % (0-3); HCO3 (ACTUAL BICARBONATE) 30.3 MEQ/L (23-27); HEMOBLOGIN CONTENT 12.8 G/DL (14-18); INSTRUMENT SERIAL # 8083; METHEMOGLOBIN 0.8 % (0-3); MODE PCV 30; O2 CONTENT 16.9 VOL% (18-24); OPERATOR ID 14661; PCO2 (CO2 TENSION) 59 MMHG (35-45); PO2 (O2 TENSION) 82 MMHG (79-93); SAMPLE Arterial; pH 7.33 (7.37-7.43)
[2016-07-10 04:54] LABS: CALCIUM, SERUM 8.5 MG/DL (8.5-10.4); CHLORIDE, SERUM 101 MMOL/L (96-112); CO2 (CARBON DIOXIDE) 30 MMOL/L (24-34); GFR AFRICAN AMERICAN 67 ML/MIN (>=60); GFR NON AFRICAN AMERICAN 58 ML/MIN (>=60); GLUCOSE, SERUM 121 MG/DL (60-99); PHOSPHORUS, SERUM 3.3 MG/DL (2.5-4.5); POTASSIUM, SERUM 5.3 MMOL/L (3.5-5.3); SODIUM, SERUM 138 MMOL/L (135-148)
[2016-07-10 04:55] LABS: BUN (BLOOD UREA NITROGEN) 23 MG/DL (6-23); CREATININE 1.24 MG/DL (0.70-1.30)
[2016-07-10 05:23] LABS: BASOPHILS 0.1 %; BASOPHILS ABSOLUTE 0.01 10/3/uL (0.0-0.16); EOSINOPHILS 0.2 %; EOSINOPHILS ABSOLUTE 0.02 10/3/uL (0.0-0.53); HEMOGLOBIN 10.4 g/dL (13.6-17.8); IMMATURE GRANULOCYTES 0.2 %; IMMATURE GRANULOCYTES ABSOLUTE 0.02 10/3/uL (0.0-0.11); LYMPHOCYTES 9.7 %; LYMPHOCYTES ABSOLUTE 1.05 10/3/uL (0.67-4.30); MEAN CORPUS HGB CONC 32.5 g/dL (32.0-36.0); MEAN CORPUSCULAR VOLUME 95.2 fL (80-100); MEAN PLATELET VOLUME 12.1 fL (9.2-13.0); MONOCYTES 7.2 %; MONOCYTES ABSOLUTE 0.78 10/3/uL (0.21-1.20); NEUTROPHILS 82.6 %; PLATELET COUNT 333 10/3/uL (150-400); RBC DISTRIBUTION WIDTH 16.1 % (12.0-16.0); RED CELL COUNT 3.36 10/6/uL (4.7-6.1)
[2016-07-10 05:32] LABS: MANUAL DIFF NO %; WHITE BLOOD CELLS 10.9 10/3/uL (4.5-10.5)
[2016-07-10 05:59] LABS: PROCALCITONIN 2.96 ng/mL (<0.5)
[2016-07-10 14:30] LABS: A/G RATIO 0.5 (0.7-1.9); ALBUMIN 2.2 G/DL (3.5-5.0); GLOBULIN 4.2 G/DL (2.5-4.1); PREALBUMIN 6.4 MG/DL (17.0-43.0); SGOT(AST) 45 U/L (5-40); SGPT(ALT) 23 U/L (5-65); TOTAL PROTEIN 6.4 G/DL (6.0-8.5)
[2016-07-10 14:31] LABS: ALKALINE PHOSPHATASE 79 U/L (45-117); TOTAL BILIRUBIN 1.5 MG/DL (0-1.2)
[2016-07-10 16:55] LABS: BUN (BLOOD UREA NITROGEN) 25 MG/DL (6-23); CALCIUM, SERUM 8.6 MG/DL (8.5-10.4); CHLORIDE, SERUM 103 MMOL/L (96-112); CO2 (CARBON DIOXIDE) 27 MMOL/L (24-34); CREATININE 1.43 MG/DL (0.70-1.30); GFR AFRICAN AMERICAN 57 ML/MIN (>=60); GFR NON AFRICAN AMERICAN 49 ML/MIN (>=60); GLUCOSE, SERUM 206 MG/DL (60-99); POTASSIUM, SERUM 4.8 MMOL/L (3.5-5.3); SODIUM, SERUM 138 MMOL/L (135-148)
[2016-07-11 04:01] LABS: BASOPHILS 0.2 %; BASOPHILS ABSOLUTE 0.02 10/3/uL (0.0-0.16); EOSINOPHILS 0.2 %; EOSINOPHILS ABSOLUTE 0.03 10/3/uL (0.0-0.53); HEMATOCRIT 33.4 % (40.0-51.0); IMMATURE GRANULOCYTES 0.2 %; IMMATURE GRANULOCYTES ABSOLUTE 0.03 10/3/uL (0.0-0.11); LYMPHOCYTES 14.3 %; LYMPHOCYTES ABSOLUTE 1.73 10/3/uL (0.67-4.30); MEAN CORPUS HGB CONC 32.9 g/dL (32.0-36.0); MEAN CORPUSCULAR HEMOGLOB 30.6 pg (26.0-34.0); MEAN PLATELET VOLUME 11.6 fL (9.2-13.0); MONOCYTES 10.1 %; MONOCYTES ABSOLUTE 1.22 10/3/uL (0.21-1.20); NEUTROPHILS ABSOLUTE 9.09 10/3/uL (2.02-8.40); PLATELET COUNT 325 10/3/uL (150-400); RBC DISTRIBUTION WIDTH 16.2 % (12.0-16.0); RED CELL COUNT 3.59 10/6/uL (4.7-6.1); WHITE BLOOD CELLS 12.1 10/3/uL (4.5-10.5)
[2016-07-11 04:03] LABS: MANUAL DIFF NO %
[2016-07-11 04:05] LABS: HCO3 (ACTUAL BICARBONATE) 27.2 MEQ/L (23-27); HEMOBLOGIN CONTENT 11.9 G/DL (14-18); INSTRUMENT SERIAL # 35151; MODE PCV +30; O2 CONTENT 16.4 VOL% (18-24); PCO2 (CO2 TENSION) 36 MMHG (35-45); PO2 (O2 TENSION) 107 MMHG (79-93); SAMPLE Arterial
[2016-07-11 04:44] LABS: ALBUMIN 2.1 G/DL (3.5-5.0); BUN (BLOOD UREA NITROGEN) 24 MG/DL (6-23); CALCIUM, SERUM 9.2 MG/DL (8.5-10.4); CHLORIDE, SERUM 109 MMOL/L (96-112); CO2 (CARBON DIOXIDE) 28 MMOL/L (24-34); CREATININE 1.14 MG/DL (0.70-1.30); GFR AFRICAN AMERICAN 75 ML/MIN (>=60); GFR NON AFRICAN AMERICAN 64 ML/MIN (>=60); GLUCOSE, SERUM 151 MG/DL (60-99); PHOSPHORUS, SERUM 1.3 MG/DL (2.5-4.5); POTASSIUM, SERUM 3.7 MMOL/L (3.5-5.3); SODIUM, SERUM 144 MMOL/L (135-148)
[2016-07-11 05:13] LABS: PROCALCITONIN 3.03 ng/mL (<0.5)
[2016-07-11 19:35] LABS: CALCIUM, SERUM 8.7 MG/DL (8.5-10.4); CHLORIDE, SERUM 110 MMOL/L (96-112); CO2 (CARBON DIOXIDE) 28 MMOL/L (24-34); CREATININE 0.96 MG/DL (0.70-1.30); GFR AFRICAN AMERICAN 92 ML/MIN (>=60); GFR NON AFRICAN AMERICAN 79 ML/MIN (>=60); POTASSIUM, SERUM 3.5 MMOL/L (3.5-5.3); SODIUM, SERUM 146 MMOL/L (135-148)
[2016-07-11 19:39] LABS: BUN (BLOOD UREA NITROGEN) 28 MG/DL (6-23); GLUCOSE, SERUM 105 MG/DL (60-99); PHOSPHORUS, SERUM 2.1 MG/DL (2.5-4.5)
[2016-07-12 03:50] LABS: ALLENS TEST Pos; BE (BASE EXCESS) 1.4 MEQ/L (0 +/- 2.5); CARBOXYHEMOGLOBIN 0.3 % (0-3); HCO3 (ACTUAL BICARBONATE) 22.4 MEQ/L (23-27); HEMOBLOGIN CONTENT 11.6 G/DL (14-18); INSTRUMENT SERIAL # 35151; METHEMOGLOBIN 0.7 % (0-3); MODE PCV; O2 CONTENT 16.2 VOL% (18-24); OPERATOR ID 17537; PCO2 (CO2 TENSION) 25 MMHG (35-45); PO2 (O2 TENSION) 129 MMHG (79-93); SAMPLE Arterial; pH 7.57 (7.37-7.43)
[2016-07-12 06:03] LABS: BASOPHILS 0.3 %; BASOPHILS ABSOLUTE 0.03 10/3/uL (0.0-0.16); HEMATOCRIT 34.1 % (40.0-51.0); HEMOGLOBIN 11.2 g/dL (13.6-17.8); IMMATURE GRANULOCYTES 0.3 %; IMMATURE GRANULOCYTES ABSOLUTE 0.03 10/3/uL (0.0-0.11); LYMPHOCYTES 23.9 %; MANUAL DIFF NO %; MEAN CORPUS HGB CONC 32.8 g/dL (32.0-36.0); MEAN CORPUSCULAR HEMOGLOB 29.7 pg (26.0-34.0); MEAN CORPUSCULAR VOLUME 90.5 fL (80-100); MEAN PLATELET VOLUME 11.7 fL (9.2-13.0); MONOCYTES ABSOLUTE 1.47 10/3/uL (0.21-1.20); NEUTROPHILS 60.5 %; NEUTROPHILS ABSOLUTE 6.34 10/3/uL (2.02-8.40); PLATELET COUNT 274 10/3/uL (150-400); RBC DISTRIBUTION WIDTH 16.5 % (12.0-16.0); RED CELL COUNT 3.77 10/6/uL (4.7-6.1); WHITE BLOOD CELLS 10.5 10/3/uL (4.5-10.5)
[2016-07-12 06:19] LABS: A/G RATIO 0.4 (0.7-1.9); ALBUMIN 2.1 G/DL (3.5-5.0); ALKALINE PHOSPHATASE 72 U/L (45-117); BUN (BLOOD UREA NITROGEN) 30 MG/DL (6-23); CALCIUM, SERUM 8.7 MG/DL (8.5-10.4); CHLORIDE, SERUM 111 MMOL/L (96-112); CO2 (CARBON DIOXIDE) 24 MMOL/L (24-34); GFR AFRICAN AMERICAN 87 ML/MIN (>=60); GFR NON AFRICAN AMERICAN 75 ML/MIN (>=60); GLOBULIN 4.7 G/DL (2.5-4.1); GLUCOSE, SERUM 139 MG/DL (60-99); SGPT(ALT) 23 U/L (5-65); SODIUM, SERUM 145 MMOL/L (135-148); TOTAL BILIRUBIN 1.1 MG/DL (0-1.2); TOTAL PROTEIN 6.8 G/DL (6.0-8.5)
[2016-07-12 06:20] LABS: PHOSPHORUS, SERUM 3.6 MG/DL (2.5-4.5); POTASSIUM, SERUM 4.8 MMOL/L (3.5-5.3); SGOT(AST) 45 U/L (5-40)
[2016-07-13 04:13] LABS: ALLENS TEST Pos; BE (BASE EXCESS) 2.2 MEQ/L (0 +/- 2.5); CARBOXYHEMOGLOBIN 0.3 % (0-3); HCO3 (ACTUAL BICARBONATE) 26.2 MEQ/L (23-27); HEMOBLOGIN CONTENT 11.4 G/DL (14-18); INSTRUMENT SERIAL # 35151; METHEMOGLOBIN 0.7 % (0-3); MODE CMV; O2 CONTENT 15.6 VOL% (18-24); OPERATOR ID 23712; PCO2 (CO2 TENSION) 39 MMHG (35-45); PO2 (O2 TENSION) 103 MMHG (79-93); SAMPLE Arterial; TIDAL VOLUME 500 ML; pH 7.45 (7.37-7.43)
[2016-07-13 04:49] LABS: BASOPHILS 0.7 %; BASOPHILS ABSOLUTE 0.07 10/3/uL (0.0-0.16); EOSINOPHILS ABSOLUTE 0.31 10/3/uL (0.0-0.53); HEMATOCRIT 31.8 % (40.0-51.0); HEMOGLOBIN 10.3 g/dL (13.6-17.8); IMMATURE GRANULOCYTES 0.4 %; IMMATURE GRANULOCYTES ABSOLUTE 0.04 10/3/uL (0.0-0.11); LYMPHOCYTES ABSOLUTE 3.03 10/3/uL (0.67-4.30); MEAN CORPUS HGB CONC 32.4 g/dL (32.0-36.0); MEAN CORPUSCULAR HEMOGLOB 31.1 pg (26.0-34.0); MEAN PLATELET VOLUME 11.3 fL (9.2-13.0); MONOCYTES 11.8 %; MONOCYTES ABSOLUTE 1.23 10/3/uL (0.21-1.20); NEUTROPHILS 55.1 %; NEUTROPHILS ABSOLUTE 5.78 10/3/uL (2.02-8.40); PLATELET COUNT 283 10/3/uL (150-400); RBC DISTRIBUTION WIDTH 16.7 % (12.0-16.0); RED CELL COUNT 3.31 10/6/uL (4.7-6.1); WHITE BLOOD CELLS 10.5 10/3/uL (4.5-10.5)
[2016-07-13 04:52] LABS: MANUAL DIFF NO %; MEAN CORPUSCULAR VOLUME 96.1 fL (80-100)
[2016-07-13 05:05] LABS: ALBUMIN 1.9 G/DL (3.5-5.0); BUN (BLOOD UREA NITROGEN) 33 MG/DL (6-23); CALCIUM, SERUM 8.7 MG/DL (8.5-10.4); CHLORIDE, SERUM 112 MMOL/L (96-112); CO2 (CARBON DIOXIDE) 25 MMOL/L (24-34); CREATININE 0.73 MG/DL (0.70-1.30); GFR AFRICAN AMERICAN 108 ML/MIN (>=60); GFR NON AFRICAN AMERICAN 93 ML/MIN (>=60); GLUCOSE, SERUM 119 MG/DL (60-99); PHOSPHORUS, SERUM 3.4 MG/DL (2.5-4.5); POTASSIUM, SERUM 4.5 MMOL/L (3.5-5.3); SODIUM, SERUM 145 MMOL/L (135-148)
[2016-07-13 06:08] LABS: PROCALCITONIN 1.16 ng/mL (<0.5)
[2016-07-14 04:08] LABS: BASOPHILS 0.3 %; BASOPHILS ABSOLUTE 0.03 10/3/uL (0.0-0.16); EOSINOPHILS 3.9 %; EOSINOPHILS ABSOLUTE 0.41 10/3/uL (0.0-0.53); HEMATOCRIT 30.7 % (40.0-51.0); IMMATURE GRANULOCYTES 0.8 %; IMMATURE GRANULOCYTES ABSOLUTE 0.08 10/3/uL (0.0-0.11); LYMPHOCYTES 24.5 %; LYMPHOCYTES ABSOLUTE 2.59 10/3/uL (0.67-4.30); MANUAL DIFF NO %; MEAN CORPUS HGB CONC 32.6 g/dL (32.0-36.0); MEAN CORPUSCULAR HEMOGLOB 30.6 pg (26.0-34.0); MEAN CORPUSCULAR VOLUME 93.9 fL (80-100); MEAN PLATELET VOLUME 11.7 fL (9.2-13.0); MONOCYTES 12.6 %; MONOCYTES ABSOLUTE 1.33 10/3/uL (0.21-1.20); NEUTROPHILS 57.9 %; NEUTROPHILS ABSOLUTE 6.15 10/3/uL (2.02-8.40); PLATELET COUNT 277 10/3/uL (150-400); RBC DISTRIBUTION WIDTH 16.3 % (12.0-16.0); RED CELL COUNT 3.27 10/6/uL (4.7-6.1); WHITE BLOOD CELLS 10.6 10/3/uL (4.5-10.5)
[2016-07-14 04:19] LABS: BUN (BLOOD UREA NITROGEN) 34 MG/DL (6-23); CHLORIDE, SERUM 111 MMOL/L (96-112); CO2 (CARBON DIOXIDE) 26 MMOL/L (24-34); CREATININE 0.63 MG/DL (0.70-1.30); GFR AFRICAN AMERICAN 115 ML/MIN (>=60); GFR NON AFRICAN AMERICAN 99 ML/MIN (>=60); GLUCOSE, SERUM 97 MG/DL (60-99); PHOSPHORUS, SERUM 2.3 MG/DL (2.5-4.5); POTASSIUM, SERUM 4.3 MMOL/L (3.5-5.3); SODIUM, SERUM 146 MMOL/L (135-148)
[2016-07-15 05:15] LABS: BASOPHILS 0.4 %; BASOPHILS ABSOLUTE 0.04 10/3/uL (0.0-0.16); EOSINOPHILS 3.5 %; EOSINOPHILS ABSOLUTE 0.37 10/3/uL (0.0-0.53); HEMATOCRIT 31.9 % (40.0-51.0); HEMOGLOBIN 10.5 g/dL (13.6-17.8); IMMATURE GRANULOCYTES 1.1 %; IMMATURE GRANULOCYTES ABSOLUTE 0.12 10/3/uL (0.0-0.11); LYMPHOCYTES 23.9 %; MANUAL DIFF NO %; MEAN CORPUS HGB CONC 32.9 g/dL (32.0-36.0); MEAN CORPUSCULAR HEMOGLOB 30.8 pg (26.0-34.0); MEAN CORPUSCULAR VOLUME 93.5 fL (80-100); MEAN PLATELET VOLUME 11.2 fL (9.2-13.0); MONOCYTES 15.4 %; MONOCYTES ABSOLUTE 1.61 10/3/uL (0.21-1.20); NEUTROPHILS 55.7 %; NEUTROPHILS ABSOLUTE 5.81 10/3/uL (2.02-8.40); PLATELET COUNT 295 10/3/uL (150-400); RBC DISTRIBUTION WIDTH 16.3 % (12.0-16.0); RED CELL COUNT 3.41 10/6/uL (4.7-6.1); WHITE BLOOD CELLS 10.5 10/3/uL (4.5-10.5)
[2016-07-15 05:29] LABS: BUN (BLOOD UREA NITROGEN) 35 MG/DL (6-23); CALCIUM, SERUM 9.1 MG/DL (8.5-10.4); CHLORIDE, SERUM 108 MMOL/L (96-112); CO2 (CARBON DIOXIDE) 27 MMOL/L (24-34); GFR AFRICAN AMERICAN 110 ML/MIN (>=60); GFR NON AFRICAN AMERICAN 95 ML/MIN (>=60); PHOSPHORUS, SERUM 2.9 MG/DL (2.5-4.5); POTASSIUM, SERUM 3.9 MMOL/L (3.5-5.3); SODIUM, SERUM 144 MMOL/L (135-148)
[2016-07-15 05:30] LABS: GLUCOSE, SERUM 123 MG/DL (60-99)
[2016-07-16 04:05] LABS: BASOPHILS 0.3 %; BASOPHILS ABSOLUTE 0.04 10/3/uL (0.0-0.16); EOSINOPHILS 0.8 %; EOSINOPHILS ABSOLUTE 0.12 10/3/uL (0.0-0.53); HEMATOCRIT 30.5 % (40.0-51.0); HEMOGLOBIN 10.2 g/dL (13.6-17.8); IMMATURE GRANULOCYTES 0.9 %; IMMATURE GRANULOCYTES ABSOLUTE 0.13 10/3/uL (0.0-0.11); LYMPHOCYTES 14.2 %; LYMPHOCYTES ABSOLUTE 2.17 10/3/uL (0.67-4.30); MEAN CORPUS HGB CONC 33.4 g/dL (32.0-36.0); MEAN CORPUSCULAR HEMOGLOB 31.9 pg (26.0-34.0); MEAN CORPUSCULAR VOLUME 95.3 fL (80-100); MEAN PLATELET VOLUME 11.7 fL (9.2-13.0); MONOCYTES 14.3 %; MONOCYTES ABSOLUTE 2.18 10/3/uL (0.21-1.20); NEUTROPHILS 69.5 %; NEUTROPHILS ABSOLUTE 10.61 10/3/uL (2.02-8.40); PLATELET COUNT 309 10/3/uL (150-400)
[2016-07-16 04:06] LABS: MANUAL DIFF NO %; WHITE BLOOD CELLS 15.3 10/3/uL (4.5-10.5)
[2016-07-16 04:21] LABS: CALCIUM, SERUM 8.7 MG/DL (8.5-10.4); CHLORIDE, SERUM 106 MMOL/L (96-112); CO2 (CARBON DIOXIDE) 27 MMOL/L (24-34); CREATININE 0.97 MG/DL (0.70-1.30); GFR AFRICAN AMERICAN 91 ML/MIN (>=60); GFR NON AFRICAN AMERICAN 78 ML/MIN (>=60); PHOSPHORUS, SERUM 2.7 MG/DL (2.5-4.5); POTASSIUM, SERUM 4.2 MMOL/L (3.5-5.3); SODIUM, SERUM 142 MMOL/L (135-148)
[2016-07-16 04:22] LABS: BUN (BLOOD UREA NITROGEN) 31 MG/DL (6-23); GLUCOSE, SERUM 151 MG/DL (60-99)
[2016-07-17 05:49] LABS: BUN (BLOOD UREA NITROGEN) 44 MG/DL (6-23); CALCIUM, SERUM 9.2 MG/DL (8.5-10.4); CHLORIDE, SERUM 109 MMOL/L (96-112); CO2 (CARBON DIOXIDE) 26 MMOL/L (24-34); GFR AFRICAN AMERICAN 87 ML/MIN (>=60); GFR NON AFRICAN AMERICAN 75 ML/MIN (>=60); GLUCOSE, SERUM 207 MG/DL (60-99); POTASSIUM, SERUM 4.1 MMOL/L (3.5-5.3); SODIUM, SERUM 143 MMOL/L (135-148)
[2016-07-17 06:12] LABS: HEMATOCRIT 31.2 % (40.0-51.0); HEMOGLOBIN 10.2 g/dL (13.6-17.8); MEAN CORPUS HGB CONC 32.7 g/dL (32.0-36.0); MEAN CORPUSCULAR HEMOGLOB 30.8 pg (26.0-34.0); MEAN CORPUSCULAR VOLUME 94.3 fL (80-100); MEAN PLATELET VOLUME 11.3 fL (9.2-13.0); PLATELET COUNT 295 10/3/uL (150-400); RBC DISTRIBUTION WIDTH 16.1 % (12.0-16.0); RED CELL COUNT 3.31 10/6/uL (4.7-6.1); WHITE BLOOD CELLS 15.3 10/3/uL (4.5-10.5)
[2016-07-17 06:17] LABS: MANUAL DIFF YES %
[2016-07-17 06:44] LABS: BAND NEUTROPHILS 2 %; BASOPHILS 2 %; BASOPHILS ABSOLUTE (CALC) 0.31 10/3/uL (0.0-0.16); EOSINOPHILS 1 %; EOSINOPHILS ABSOLUTE (CALC) 0.15 10/3/uL (0.0-0.53); IMMATURE GRANS ABSOLUTE (CALC) 0.15 10/3/uL (0.0-0.11); LYMPHOCYTES 16 %; LYMPHOCYTES ABSOLUTE (CALC) 2.45 10/3/uL (0.67-4.30); MONOCYTES 19 %; MONOCYTES ABSOLUTE (CALC) 2.91 10/3/uL (0.21-1.20); MYELOCYTES 1 %; NEUTROPHILS ABSOLUTE (CALC) 9.33 10/3/uL (2.02-8.40); PLATELET ESTIMATE ADQ (ADEQUATE); RBC MORPHOLOGY NORM (NORMAL); SEGMENTED NEUTROPHIL (0) 59 %; TOTAL NUCLEATED CELLS 100
[2016-07-17 10:34] LABS: ASCORBIC ACID (UR NOT ORDER) 40 (NEG); BILIRUBIN, URINE NEGATIVE (NEG); KETONE, URINE NEGATIVE (NEG); LEUKOCYTE ESTERASE(NOT OR TRACE (NEG); WBC (NOT ORDERED) (RFLEX) 5 (0-5)
[2016-07-17 11:46] LABS: PROCALCITONIN 0.49 ng/mL (<0.5)
[2016-07-18 05:15] LABS: CALCIUM, SERUM 9.6 MG/DL (8.5-10.4); CHLORIDE, SERUM 108 MMOL/L (96-112); CO2 (CARBON DIOXIDE) 27 MMOL/L (24-34); CREATININE 1.11 MG/DL (0.70-1.30); GFR AFRICAN AMERICAN 77 ML/MIN (>=60); GFR NON AFRICAN AMERICAN 66 ML/MIN (>=60); GLUCOSE, SERUM 207 MG/DL (60-99); PHOSPHORUS, SERUM 2.4 MG/DL (2.5-4.5); POTASSIUM, SERUM 4.1 MMOL/L (3.5-5.3); SODIUM, SERUM 144 MMOL/L (135-148)
[2016-07-18 05:16] LABS: BUN (BLOOD UREA NITROGEN) 61 MG/DL (6-23)
[2016-07-18 05:25] LABS: HEMOGLOBIN 8.9 g/dL (13.6-17.8); MEAN CORPUS HGB CONC 33.7 g/dL (32.0-36.0); MEAN CORPUSCULAR HEMOGLOB 32.8 pg (26.0-34.0); MEAN PLATELET VOLUME 11.1 fL (9.2-13.0); PLATELET COUNT 324 10/3/uL (150-400); RBC DISTRIBUTION WIDTH 16.5 % (12.0-16.0); RED CELL COUNT 2.71 10/6/uL (4.7-6.1)
[2016-07-18 05:26] LABS: HEMATOCRIT 26.4 % (40.0-51.0); MANUAL DIFF YES %; MEAN CORPUSCULAR VOLUME 97.4 fL (80-100); WHITE BLOOD CELLS 22.7 10/3/uL (4.5-10.5)
[2016-07-18 07:01] LABS: BAND NEUTROPHILS 9 %; BASOPHILS 1 %; BASOPHILS ABSOLUTE (CALC) 0.23 10/3/uL (0.0-0.16); EOSINOPHILS 3 %; EOSINOPHILS ABSOLUTE (CALC) 0.68 10/3/uL (0.0-0.53); LYMPHOCYTES 17 %; LYMPHOCYTES ABSOLUTE (CALC) 3.86 10/3/uL (0.67-4.30); MONOCYTES 21 %; MONOCYTES ABSOLUTE (CALC) 4.77 10/3/uL (0.21-1.20); NEUTROPHILS ABSOLUTE (CALC) 13.17 10/3/uL (2.02-8.40); PLATELET ESTIMATE ADQ (ADEQUATE); POLYCHROMASIA 1+ (2-5/OIF) (0-1/OIF); SEGMENTED NEUTROPHIL (0) 49 %; TARGET CELLS FEW (3-10/OIF) (0-1/OIF); TOTAL NUCLEATED CELLS 100; TOXIC GRANULATION 1+; VACUOLATED NEUTROPHILES OCC
[2016-07-18 07:02] LABS: MACROCYTES 1+ (5-10/OIF) (0-5/OIF)
[2016-07-19 01:47] LABS: ALLENS TEST Pos; BE (BASE EXCESS) 3.2 MEQ/L (0 +/- 2.5); CARBOXYHEMOGLOBIN 0.2 % (0-3); HCO3 (ACTUAL BICARBONATE) 27.4 MEQ/L (23-27); HEMOBLOGIN CONTENT 10.1 G/DL (14-18); INSTRUMENT SERIAL # 35151; METHEMOGLOBIN 0.6 % (0-3); MODE CMV; PCO2 (CO2 TENSION) 40 MMHG (35-45); PO2 (O2 TENSION) 111 MMHG (79-93); SAMPLE Arterial; TIDAL VOLUME 500 ML; pH 7.45 (7.37-7.43)
[2016-07-19 05:38] LABS: HEMATOCRIT 26.2 % (40.0-51.0); HEMOGLOBIN 8.7 g/dL (13.6-17.8); MEAN CORPUS HGB CONC 33.2 g/dL (32.0-36.0); MEAN CORPUSCULAR HEMOGLOB 31.8 pg (26.0-34.0); MEAN CORPUSCULAR VOLUME 95.6 fL (80-100); MEAN PLATELET VOLUME 11.4 fL (9.2-13.0); PLATELET COUNT 294 10/3/uL (150-400); RBC DISTRIBUTION WIDTH 16.3 % (12.0-16.0); RED CELL COUNT 2.74 10/6/uL (4.7-6.1); WHITE BLOOD CELLS 19.7 10/3/uL (4.5-10.5)
[2016-07-19 05:39] LABS: MANUAL DIFF YES %
[2016-07-19 05:52] LABS: CALCIUM, SERUM 9.3 MG/DL (8.5-10.4); CHLORIDE, SERUM 108 MMOL/L (96-112); CO2 (CARBON DIOXIDE) 28 MMOL/L (24-34); CREATININE 1.25 MG/DL (0.70-1.30); GFR AFRICAN AMERICAN 67 ML/MIN (>=60); GFR NON AFRICAN AMERICAN 58 ML/MIN (>=60); GLUCOSE, SERUM 192 MG/DL (60-99); PHOSPHORUS, SERUM 2.5 MG/DL (2.5-4.5); POTASSIUM, SERUM 4.3 MMOL/L (3.5-5.3); SODIUM, SERUM 144 MMOL/L (135-148)
[2016-07-19 05:54] LABS: BUN (BLOOD UREA NITROGEN) 68 MG/DL (6-23)
[2016-07-19 05:57] LABS: BAND NEUTROPHILS 1 %; EOSINOPHILS 2 %; EOSINOPHILS ABSOLUTE (CALC) 0.39 10/3/uL (0.0-0.53); LYMPHOCYTES 8 %; LYMPHOCYTES ABSOLUTE (CALC) 1.58 10/3/uL (0.67-4.30); METAMYELOCYTES 1 %; MONOCYTES 9 %; MONOCYTES ABSOLUTE (CALC) 1.77 10/3/uL (0.21-1.20); NEUTROPHILS ABSOLUTE (CALC) 15.76 10/3/uL (2.02-8.40); SEGMENTED NEUTROPHIL (0) 79 %; TOTAL NUCLEATED CELLS 100
[2016-07-19 05:58] LABS: PLATELET ESTIMATE ADQ (ADEQUATE); TARGET CELLS FEW (3-10/OIF) (0-1/OIF)
[2016-07-20 03:52] LABS: HEMATOCRIT 25.6 % (40.0-51.0); HEMOGLOBIN 8.2 g/dL (13.6-17.8); MANUAL DIFF YES %; MEAN CORPUSCULAR VOLUME 93.8 fL (80-100); MEAN PLATELET VOLUME 11.3 fL (9.2-13.0); PLATELET COUNT 301 10/3/uL (150-400); RBC DISTRIBUTION WIDTH 16.4 % (12.0-16.0); RED CELL COUNT 2.73 10/6/uL (4.7-6.1); WHITE BLOOD CELLS 21.2 10/3/uL (4.5-10.5)
[2016-07-20 04:26] LABS: EOSINOPHILS 1 %; EOSINOPHILS ABSOLUTE (CALC) 0.21 10/3/uL (0.0-0.53); IMMATURE GRANS ABSOLUTE (CALC) 0.21 10/3/uL (0.0-0.11); LYMPHOCYTES 9 %; LYMPHOCYTES ABSOLUTE (CALC) 1.91 10/3/uL (0.67-4.30); MONOCYTES 6 %; MONOCYTES ABSOLUTE (CALC) 1.27 10/3/uL (0.21-1.20); PROMYELOCYTES 1 % (0); SEGMENTED NEUTROPHIL (0) 83 %; TOTAL NUCLEATED CELLS 100
[2016-07-20 04:27] LABS: ANISOCYTOSIS 1+ (5-10/OIF) (0-5/OIF); CALCIUM, SERUM 9.3 MG/DL (8.5-10.4); CHLORIDE, SERUM 114 MMOL/L (96-112); CO2 (CARBON DIOXIDE) 28 MMOL/L (24-34); CREATININE 1.24 MG/DL (0.70-1.30); FREE T4 1.09 NG/DL (0.76-1.46); GFR AFRICAN AMERICAN 67 ML/MIN (>=60); GFR NON AFRICAN AMERICAN 58 ML/MIN (>=60); PHOSPHORUS, SERUM 1.9 MG/DL (2.5-4.5); POTASSIUM, SERUM 3.9 MMOL/L (3.5-5.3); RBC MORPHOLOGY ABN (NORMAL); SODIUM, SERUM 148 MMOL/L (135-148)
[2016-07-20 04:30] LABS: BUN (BLOOD UREA NITROGEN) 84 MG/DL (6-23); FOLATE 13.6 NG/ML (>5.2); GLUCOSE, SERUM 149 MG/DL (60-99)
[2016-07-21 05:14] LABS: BASOPHILS 0.3 %; BASOPHILS ABSOLUTE 0.06 10/3/uL (0.0-0.16); EOSINOPHILS 1.8 %; EOSINOPHILS ABSOLUTE 0.38 10/3/uL (0.0-0.53); HEMATOCRIT 23.9 % (40.0-51.0); HEMOGLOBIN 8.1 g/dL (13.6-17.8); IMMATURE GRANULOCYTES 0.5 %; LYMPHOCYTES 11.4 %; LYMPHOCYTES ABSOLUTE 2.37 10/3/uL (0.67-4.30); MANUAL DIFF NO %; MEAN CORPUS HGB CONC 33.9 g/dL (32.0-36.0); MEAN CORPUSCULAR HEMOGLOB 33.5 pg (26.0-34.0); MEAN CORPUSCULAR VOLUME 98.8 fL (80-100); MEAN PLATELET VOLUME 11.7 fL (9.2-13.0); MONOCYTES 11.7 %; MONOCYTES ABSOLUTE 2.43 10/3/uL (0.21-1.20); NEUTROPHILS 74.3 %; NEUTROPHILS ABSOLUTE 15.39 10/3/uL (2.02-8.40); NUCLEATED RED BLOOD CELLS 0.3 /100WBC (0-0); PLATELET COUNT 293 10/3/uL (150-400); RBC DISTRIBUTION WIDTH 16.7 % (12.0-16.0); RED CELL COUNT 2.42 10/6/uL (4.7-6.1); WHITE BLOOD CELLS 20.7 10/3/uL (4.5-10.5)
[2016-07-21 05:15] LABS: BUN (BLOOD UREA NITROGEN) 91 MG/DL (6-23); CALCIUM, SERUM 9.6 MG/DL (8.5-10.4); CHLORIDE, SERUM 115 MMOL/L (96-112); CO2 (CARBON DIOXIDE) 25 MMOL/L (24-34); CREATININE 1.32 MG/DL (0.70-1.30); GFR AFRICAN AMERICAN 62 ML/MIN (>=60); GFR NON AFRICAN AMERICAN 54 ML/MIN (>=60); GLUCOSE, SERUM 158 MG/DL (60-99); PHOSPHORUS, SERUM 3.3 MG/DL (2.5-4.5); POTASSIUM, SERUM 4.2 MMOL/L (3.5-5.3); SODIUM, SERUM 150 MMOL/L (135-148)
[2016-07-22 05:26] LABS: HEMATOCRIT 23.3 % (40.0-51.0); MEAN CORPUS HGB CONC 34.3 g/dL (32.0-36.0); MEAN CORPUSCULAR HEMOGLOB 33.9 pg (26.0-34.0); MEAN CORPUSCULAR VOLUME 98.7 fL (80-100); MEAN PLATELET VOLUME 11.4 fL (9.2-13.0); NUCLEATED RED BLOOD CELLS 0.7 /100WBC (0-0); PLATELET COUNT 301 10/3/uL (150-400); RBC DISTRIBUTION WIDTH 16.6 % (12.0-16.0); RED CELL COUNT 2.36 10/6/uL (4.7-6.1); WHITE BLOOD CELLS 17.6 10/3/uL (4.5-10.5)
[2016-07-22 05:28] LABS: MANUAL DIFF YES %
[2016-07-22 05:29] LABS: CALCIUM, SERUM 9.4 MG/DL (8.5-10.4); CHLORIDE, SERUM 119 MMOL/L (96-112); CO2 (CARBON DIOXIDE) 26 MMOL/L (24-34); CREATININE 1.25 MG/DL (0.70-1.30); GFR AFRICAN AMERICAN 67 ML/MIN (>=60); GFR NON AFRICAN AMERICAN 58 ML/MIN (>=60); GLUCOSE, SERUM 135 MG/DL (60-99); POTASSIUM, SERUM 4.1 MMOL/L (3.5-5.3); SODIUM, SERUM 153 MMOL/L (135-148)
[2016-07-22 05:33] LABS: BUN (BLOOD UREA NITROGEN) 69 MG/DL (6-23); PHOSPHORUS, SERUM 2.3 MG/DL (2.5-4.5)
[2016-07-22 05:59] LABS: EOSINOPHILS 4 %; IMMATURE GRANS ABSOLUTE (CALC) 0.18 10/3/uL (0.0-0.11); LYMPHOCYTES 13 %; LYMPHOCYTES ABSOLUTE (CALC) 2.29 10/3/uL (0.67-4.30); METAMYELOCYTES 1 %; MONOCYTES 5 %; MONOCYTES ABSOLUTE (CALC) 0.88 10/3/uL (0.21-1.20); NEUTROPHILS ABSOLUTE (CALC) 13.55 10/3/uL (2.02-8.40); PLATELET ESTIMATE ADQ (ADEQUATE); SEGMENTED NEUTROPHIL (0) 77 %; TARGET CELLS FEW (3-10/OIF) (0-1/OIF); TEARDROP SHAPED RBCS FEW (3-10/OIF); TOTAL NUCLEATED CELLS 100
[2016-07-22 06:37] LABS: PROCALCITONIN 0.61 ng/mL (<0.5)
[2016-07-23 05:29] LABS: BUN (BLOOD UREA NITROGEN) 54 MG/DL (6-23); CALCIUM, SERUM 9.1 MG/DL (8.5-10.4); CHLORIDE, SERUM 116 MMOL/L (96-112); CO2 (CARBON DIOXIDE) 24 MMOL/L (24-34); CREATININE 1.03 MG/DL (0.70-1.30); GFR AFRICAN AMERICAN 84 ML/MIN (>=60); GFR NON AFRICAN AMERICAN 73 ML/MIN (>=60); GLUCOSE, SERUM 103 MG/DL (60-99); PHOSPHORUS, SERUM 3.5 MG/DL (2.5-4.5); POTASSIUM, SERUM 4.3 MMOL/L (3.5-5.3); SODIUM, SERUM 150 MMOL/L (135-148); VANCOMYCIN TROUGH 19.8 MCG/ML (10.0-20.0)
[2016-07-23 05:37] LABS: BASOPHILS 0.4 %; BASOPHILS ABSOLUTE 0.06 10/3/uL (0.0-0.16); EOSINOPHILS 5.5 %; EOSINOPHILS ABSOLUTE 0.85 10/3/uL (0.0-0.53); HEMATOCRIT 21.7 % (40.0-51.0); HEMOGLOBIN 7.9 g/dL (13.6-17.8); IMMATURE GRANULOCYTES 0.5 %; IMMATURE GRANULOCYTES ABSOLUTE 0.07 10/3/uL (0.0-0.11); LYMPHOCYTES 16.1 %; LYMPHOCYTES ABSOLUTE 2.49 10/3/uL (0.67-4.30); MEAN CORPUSCULAR HEMOGLOB 36.7 pg (26.0-34.0); MEAN CORPUSCULAR VOLUME 100.9 fL (80-100); MEAN PLATELET VOLUME 11.5 fL (9.2-13.0); MONOCYTES 11.6 %; MONOCYTES ABSOLUTE 1.79 10/3/uL (0.21-1.20); NEUTROPHILS 65.9 %; NEUTROPHILS ABSOLUTE 10.18 10/3/uL (2.02-8.40); NUCLEATED RED BLOOD CELLS 0.4 /100WBC (0-0); PLATELET COUNT 313 10/3/uL (150-400); RBC DISTRIBUTION WIDTH 16.9 % (12.0-16.0); RED CELL COUNT 2.15 10/6/uL (4.7-6.1); WHITE BLOOD CELLS 15.4 10/3/uL (4.5-10.5)
[2016-07-23 06:05] LABS: MANUAL DIFF NO %; MEAN CORPUS HGB CONC 36.4 g/dL (32.0-36.0)
[2016-07-24 05:10] LABS: BUN (BLOOD UREA NITROGEN) 53 MG/DL (6-23); CALCIUM, SERUM 9.5 MG/DL (8.5-10.4); CHLORIDE, SERUM 114 MMOL/L (96-112); CO2 (CARBON DIOXIDE) 24 MMOL/L (24-34); CREATININE 0.89 MG/DL (0.70-1.30); GFR AFRICAN AMERICAN 100 ML/MIN (>=60); GFR NON AFRICAN AMERICAN 86 ML/MIN (>=60); PHOSPHORUS, SERUM 2.8 MG/DL (2.5-4.5); POTASSIUM, SERUM 4.8 MMOL/L (3.5-5.3); SODIUM, SERUM 146 MMOL/L (135-148)
[2016-07-24 05:14] LABS: BASOPHILS 0.4 %; BASOPHILS ABSOLUTE 0.06 10/3/uL (0.0-0.16); EOSINOPHILS 6.4 %; EOSINOPHILS ABSOLUTE 0.97 10/3/uL (0.0-0.53); HEMOGLOBIN 8.9 g/dL (13.6-17.8); IMMATURE GRANULOCYTES 0.5 %; IMMATURE GRANULOCYTES ABSOLUTE 0.08 10/3/uL (0.0-0.11); LYMPHOCYTES 13.7 %; LYMPHOCYTES ABSOLUTE 2.06 10/3/uL (0.67-4.30); MEAN PLATELET VOLUME 11.7 fL (9.2-13.0); MONOCYTES 10.6 %; MONOCYTES ABSOLUTE 1.59 10/3/uL (0.21-1.20); NEUTROPHILS 68.4 %; NEUTROPHILS ABSOLUTE 10.31 10/3/uL (2.02-8.40); NUCLEATED RED BLOOD CELLS 0.3 /100WBC (0-0); PLATELET COUNT 351 10/3/uL (150-400); RBC DISTRIBUTION WIDTH 16.6 % (12.0-16.0); WHITE BLOOD CELLS 15.1 10/3/uL (4.5-10.5)
[2016-07-24 05:17] LABS: GLUCOSE, SERUM 166 MG/DL (60-99)
[2016-07-24 05:18] LABS: HEMATOCRIT 27.4 % (40.0-51.0); MANUAL DIFF NO %; MEAN CORPUS HGB CONC 32.5 g/dL (32.0-36.0); MEAN CORPUSCULAR HEMOGLOB 30.9 pg (26.0-34.0); MEAN CORPUSCULAR VOLUME 95.1 fL (80-100); RED CELL COUNT 2.88 10/6/uL (4.7-6.1)
[2016-07-24 10:38] LABS: VANCOMYCIN TROUGH 17.7 MCG/ML (10.0-20.0)
[2016-07-25 05:13] LABS: CALCIUM, SERUM 9.4 MG/DL (8.5-10.4); CHLORIDE, SERUM 114 MMOL/L (96-112); CO2 (CARBON DIOXIDE) 25 MMOL/L (24-34); CREATININE 0.99 MG/DL (0.70-1.30); GFR AFRICAN AMERICAN 88 ML/MIN (>=60); GFR NON AFRICAN AMERICAN 76 ML/MIN (>=60); GLUCOSE, SERUM 147 MG/DL (60-99); SODIUM, SERUM 147 MMOL/L (135-148); VANCOMYCIN TROUGH 16.3 MCG/ML (10.0-20.0)
[2016-07-25 05:25] LABS: BASOPHILS 0.5 %; BASOPHILS ABSOLUTE 0.07 10/3/uL (0.0-0.16); EOSINOPHILS 5.8 %; EOSINOPHILS ABSOLUTE 0.88 10/3/uL (0.0-0.53); HEMATOCRIT 27.2 % (40.0-51.0); HEMOGLOBIN 8.6 g/dL (13.6-17.8); IMMATURE GRANULOCYTES 0.5 %; IMMATURE GRANULOCYTES ABSOLUTE 0.07 10/3/uL (0.0-0.11); LYMPHOCYTES 15.9 %; LYMPHOCYTES ABSOLUTE 2.41 10/3/uL (0.67-4.30); MEAN CORPUS HGB CONC 31.6 g/dL (32.0-36.0); MEAN CORPUSCULAR HEMOGLOB 30.3 pg (26.0-34.0); MEAN CORPUSCULAR VOLUME 95.8 fL (80-100); MEAN PLATELET VOLUME 11.8 fL (9.2-13.0); MONOCYTES 11.4 %; MONOCYTES ABSOLUTE 1.72 10/3/uL (0.21-1.20); NEUTROPHILS 65.9 %; NEUTROPHILS ABSOLUTE 9.98 10/3/uL (2.02-8.40); PLATELET COUNT 375 10/3/uL (150-400); RBC DISTRIBUTION WIDTH 16.4 % (12.0-16.0); RED CELL COUNT 2.84 10/6/uL (4.7-6.1); WHITE BLOOD CELLS 15.1 10/3/uL (4.5-10.5)
[2016-07-25 05:27] LABS: BUN (BLOOD UREA NITROGEN) 62 MG/DL (6-23)
[2016-07-25 05:28] LABS: MANUAL DIFF NO %
[2016-07-25 05:53] LABS: PROCALCITONIN 0.42 ng/mL (<0.5)
[2016-07-26 04:56] LABS: BASOPHILS 0.4 %; BASOPHILS ABSOLUTE 0.07 10/3/uL (0.0-0.16); EOSINOPHILS 6.4 %; EOSINOPHILS ABSOLUTE 1.06 10/3/uL (0.0-0.53); HEMATOCRIT 26.9 % (40.0-51.0); HEMOGLOBIN 8.7 g/dL (13.6-17.8); IMMATURE GRANULOCYTES 0.4 %; IMMATURE GRANULOCYTES ABSOLUTE 0.06 10/3/uL (0.0-0.11); LYMPHOCYTES 17.5 %; LYMPHOCYTES ABSOLUTE 2.88 10/3/uL (0.67-4.30); MEAN CORPUS HGB CONC 32.3 g/dL (32.0-36.0); MEAN CORPUSCULAR VOLUME 95.7 fL (80-100); MEAN PLATELET VOLUME 11.8 fL (9.2-13.0); MONOCYTES 11.7 %; MONOCYTES ABSOLUTE 1.93 10/3/uL (0.21-1.20); NEUTROPHILS 63.6 %; NEUTROPHILS ABSOLUTE 10.46 10/3/uL (2.02-8.40); PLATELET COUNT 347 10/3/uL (150-400); RBC DISTRIBUTION WIDTH 16.5 % (12.0-16.0); RED CELL COUNT 2.81 10/6/uL (4.7-6.1); WHITE BLOOD CELLS 16.5 10/3/uL (4.5-10.5)
[2016-07-26 04:57] LABS: MANUAL DIFF NO %
[2016-07-26 05:17] LABS: A/G RATIO 0.2 (0.7-1.9); ALBUMIN 1.3 G/DL (3.5-5.0); ALKALINE PHOSPHATASE 88 U/L (45-117); BUN (BLOOD UREA NITROGEN) 62 MG/DL (6-23); CALCIUM, SERUM 9.1 MG/DL (8.5-10.4); CHLORIDE, SERUM 116 MMOL/L (96-112); CO2 (CARBON DIOXIDE) 22 MMOL/L (24-34); CREATININE 1.01 MG/DL (0.70-1.30); GFR AFRICAN AMERICAN 86 ML/MIN (>=60); GFR NON AFRICAN AMERICAN 74 ML/MIN (>=60); GLOBULIN 5.7 G/DL (2.5-4.1); GLUCOSE, SERUM 160 MG/DL (60-99); SGOT(AST) 85 U/L (5-40); SGPT(ALT) 36 U/L (5-65); SODIUM, SERUM 147 MMOL/L (135-148); TOTAL BILIRUBIN 2.2 MG/DL (0-1.2)
[2016-07-27 06:00] LABS: HEMATOCRIT 24.8 % (40.0-51.0); HEMOGLOBIN 8.3 g/dL (13.6-17.8); MEAN CORPUS HGB CONC 33.5 g/dL (32.0-36.0); MEAN CORPUSCULAR HEMOGLOB 33.1 pg (26.0-34.0); MEAN PLATELET VOLUME 11.5 fL (9.2-13.0); PLATELET COUNT 376 10/3/uL (150-400); RBC DISTRIBUTION WIDTH 16.6 % (12.0-16.0); RED CELL COUNT 2.51 10/6/uL (4.7-6.1); WHITE BLOOD CELLS 13.8 10/3/uL (4.5-10.5)
[2016-07-27 06:05] LABS: MANUAL DIFF YES %; MEAN CORPUSCULAR VOLUME 98.8 fL (80-100)
[2016-07-27 06:09] LABS: ALBUMIN 1.3 G/DL (3.5-5.0); ALKALINE PHOSPHATASE 87 U/L (45-117); BUN (BLOOD UREA NITROGEN) 62 MG/DL (6-23); CALCIUM, SERUM 9.1 MG/DL (8.5-10.4); CHLORIDE, SERUM 118 MMOL/L (96-112); CO2 (CARBON DIOXIDE) 23 MMOL/L (24-34); CREATININE 0.93 MG/DL (0.70-1.30); GFR AFRICAN AMERICAN 95 ML/MIN (>=60); GFR NON AFRICAN AMERICAN 82 ML/MIN (>=60); INDIRECT BILIRUBIN(NOT ORDER) 0.2 MG/DL (0.1-0.9); PHOSPHORUS, SERUM 3.7 MG/DL (2.5-4.5); POTASSIUM, SERUM 4.5 MMOL/L (3.5-5.3); SGOT(AST) 82 U/L (5-40); SGPT(ALT) 38 U/L (5-65); SODIUM, SERUM 149 MMOL/L (135-148); TOTAL BILIRUBIN 1.9 MG/DL (0-1.2); TOTAL PROTEIN 6.9 G/DL (6.0-8.5)
[2016-07-27 06:13] LABS: DIRECT BILIRUBIN 1.7 MG/DL (0.0-0.4); GLUCOSE, SERUM 50 MG/DL (60-99)
[2016-07-27 06:31] LABS: EOSINOPHILS 5 %; EOSINOPHILS ABSOLUTE (CALC) 0.69 10/3/uL (0.0-0.53); LYMPHOCYTES 15 %; LYMPHOCYTES ABSOLUTE (CALC) 2.07 10/3/uL (0.67-4.30); MONOCYTES 1 %; MONOCYTES ABSOLUTE (CALC) 0.14 10/3/uL (0.21-1.20); RBC MORPHOLOGY ABN (NORMAL); SEGMENTED NEUTROPHIL (0) 79 %; TOTAL NUCLEATED CELLS 100
[2016-07-27 16:53] LABS: OSMOLALITY, URINE 612 MOSM/KG (50-1200)
[2016-07-27 17:07] LABS: SODIUM, URINE 42 MEQ/L
[2016-07-28 06:04] LABS: BASOPHILS 0.5 %; BASOPHILS ABSOLUTE 0.07 10/3/uL (0.0-0.16); EOSINOPHILS 7.1 %; EOSINOPHILS ABSOLUTE 0.96 10/3/uL (0.0-0.53); HEMATOCRIT 24.9 % (40.0-51.0); HEMOGLOBIN 8.3 g/dL (13.6-17.8); IMMATURE GRANULOCYTES 0.3 %; IMMATURE GRANULOCYTES ABSOLUTE 0.04 10/3/uL (0.0-0.11); LYMPHOCYTES 15.5 %; LYMPHOCYTES ABSOLUTE 2.09 10/3/uL (0.67-4.30); MEAN CORPUS HGB CONC 33.3 g/dL (32.0-36.0); MEAN CORPUSCULAR HEMOGLOB 32.3 pg (26.0-34.0); MEAN CORPUSCULAR VOLUME 96.9 fL (80-100); MEAN PLATELET VOLUME 12.6 fL (9.2-13.0); MONOCYTES 12.9 %; MONOCYTES ABSOLUTE 1.74 10/3/uL (0.21-1.20); NEUTROPHILS 63.7 %; NEUTROPHILS ABSOLUTE 8.56 10/3/uL (2.02-8.40); NUCLEATED RED BLOOD CELLS 0.2 /100WBC (0-0); PLATELET COUNT 332 10/3/uL (150-400); RBC DISTRIBUTION WIDTH 16.6 % (12.0-16.0); RED CELL COUNT 2.57 10/6/uL (4.7-6.1); WHITE BLOOD CELLS 13.5 10/3/uL (4.5-10.5)
[2016-07-28 06:07] LABS: INTERNATIONAL NORMAL RATI 1.8 UNITS (-); MANUAL DIFF NO %
[2016-07-28 06:08] LABS: PARTIAL THROMBO TIME 65.6 SEC (22.5-37.2); PROTIME (NOT ORD) 20.4 SEC (12.0-14.5)
[2016-07-28 06:14] LABS: CALCIUM, SERUM 8.7 MG/DL (8.5-10.4); CHLORIDE, SERUM 118 MMOL/L (96-112); CO2 (CARBON DIOXIDE) 19 MMOL/L (24-34); CREATININE 0.95 MG/DL (0.70-1.30); GFR AFRICAN AMERICAN 93 ML/MIN (>=60); GFR NON AFRICAN AMERICAN 80 ML/MIN (>=60); SODIUM, SERUM 147 MMOL/L (135-148)
[2016-07-28 06:15] LABS: BUN (BLOOD UREA NITROGEN) 52 MG/DL (6-23); GLUCOSE, SERUM 144 MG/DL (60-99)
[2016-07-29 04:58] LABS: PARTIAL THROMBO TIME 49.5 SEC (22.5-37.2)
[2016-07-29 05:00] LABS: BASOPHILS 0.4 %; BASOPHILS ABSOLUTE 0.06 10/3/uL (0.0-0.16); EOSINOPHILS 6.4 %; EOSINOPHILS ABSOLUTE 0.91 10/3/uL (0.0-0.53); HEMOGLOBIN 8.2 g/dL (13.6-17.8); IMMATURE GRANULOCYTES 0.3 %; IMMATURE GRANULOCYTES ABSOLUTE 0.05 10/3/uL (0.0-0.11); LYMPHOCYTES 15.4 %; MEAN CORPUSCULAR HEMOGLOB 30.6 pg (26.0-34.0); MEAN PLATELET VOLUME 11.7 fL (9.2-13.0); MONOCYTES 8.5 %; MONOCYTES ABSOLUTE 1.21 10/3/uL (0.21-1.20); NEUTROPHILS ABSOLUTE 9.88 10/3/uL (2.02-8.40); PLATELET COUNT 424 10/3/uL (150-400); RBC DISTRIBUTION WIDTH 16.8 % (12.0-16.0); RED CELL COUNT 2.68 10/6/uL (4.7-6.1); WHITE BLOOD CELLS 14.3 10/3/uL (4.5-10.5)
[2016-07-29 05:01] LABS: MANUAL DIFF NO %; MEAN CORPUS HGB CONC 31.5 g/dL (32.0-36.0)
[2016-07-29 05:21] LABS: ALBUMIN 1.2 G/DL (3.5-5.0); BUN (BLOOD UREA NITROGEN) 53 MG/DL (6-23); CALCIUM, SERUM 8.5 MG/DL (8.5-10.4); CHLORIDE, SERUM 119 MMOL/L (96-112); CO2 (CARBON DIOXIDE) 22 MMOL/L (24-34); CREATININE 1.03 MG/DL (0.70-1.30); GFR AFRICAN AMERICAN 84 ML/MIN (>=60); GFR NON AFRICAN AMERICAN 73 ML/MIN (>=60); GLUCOSE, SERUM 160 MG/DL (60-99); PHOSPHORUS, SERUM 3.5 MG/DL (2.5-4.5); POTASSIUM, SERUM 4.7 MMOL/L (3.5-5.3); SODIUM, SERUM 150 MMOL/L (135-148)
[2016-07-30 04:22] LABS: BUN (BLOOD UREA NITROGEN) 52 MG/DL (6-23); CALCIUM, SERUM 8.6 MG/DL (8.5-10.4); CHLORIDE, SERUM 119 MMOL/L (96-112); CO2 (CARBON DIOXIDE) 24 MMOL/L (24-34); CREATININE 0.99 MG/DL (0.70-1.30); GFR AFRICAN AMERICAN 88 ML/MIN (>=60); GFR NON AFRICAN AMERICAN 76 ML/MIN (>=60); PHOSPHORUS, SERUM 3.9 MG/DL (2.5-4.5); POTASSIUM, SERUM 4.6 MMOL/L (3.5-5.3); SODIUM, SERUM 149 MMOL/L (135-148)
[2016-07-30 04:24] LABS: GLUCOSE, SERUM 43 MG/DL (60-99)
[2016-07-30 04:25] LABS: PARTIAL THROMBO TIME 84.4 SEC (22.5-37.2)
[2016-07-30 04:30] LABS: BASOPHILS 0.4 %; BASOPHILS ABSOLUTE 0.05 10/3/uL (0.0-0.16); EOSINOPHILS 10.8 %; EOSINOPHILS ABSOLUTE 1.39 10/3/uL (0.0-0.53); HEMOGLOBIN 8.5 g/dL (13.6-17.8); IMMATURE GRANULOCYTES 0.5 %; IMMATURE GRANULOCYTES ABSOLUTE 0.06 10/3/uL (0.0-0.11); LYMPHOCYTES 17.3 %; LYMPHOCYTES ABSOLUTE 2.23 10/3/uL (0.67-4.30); MEAN CORPUS HGB CONC 31.5 g/dL (32.0-36.0); MEAN CORPUSCULAR VOLUME 98.5 fL (80-100); MEAN PLATELET VOLUME 11.7 fL (9.2-13.0); MONOCYTES 9.2 %; MONOCYTES ABSOLUTE 1.19 10/3/uL (0.21-1.20); NEUTROPHILS 61.8 %; NEUTROPHILS ABSOLUTE 7.98 10/3/uL (2.02-8.40); PLATELET COUNT 441 10/3/uL (150-400); RBC DISTRIBUTION WIDTH 16.9 % (12.0-16.0); RED CELL COUNT 2.74 10/6/uL (4.7-6.1); WHITE BLOOD CELLS 12.9 10/3/uL (4.5-10.5)
[2016-07-30 04:33] LABS: MANUAL DIFF NO %
[2016-07-31 04:55] LABS: CALCIUM, SERUM 8.7 MG/DL (8.5-10.4); CHLORIDE, SERUM 118 MMOL/L (96-112); CO2 (CARBON DIOXIDE) 23 MMOL/L (24-34); CREATININE 1.17 MG/DL (0.70-1.30); GFR AFRICAN AMERICAN 72 ML/MIN (>=60); GFR NON AFRICAN AMERICAN 62 ML/MIN (>=60); POTASSIUM, SERUM 4.2 MMOL/L (3.5-5.3); SODIUM, SERUM 148 MMOL/L (135-148)
[2016-07-31 04:57] LABS: BUN (BLOOD UREA NITROGEN) 62 MG/DL (6-23); GLUCOSE, SERUM 94 MG/DL (60-99)
[2016-07-31 05:04] LABS: BASOPHILS 0.3 %; BASOPHILS ABSOLUTE 0.04 10/3/uL (0.0-0.16); EOSINOPHILS 7.5 %; EOSINOPHILS ABSOLUTE 1.08 10/3/uL (0.0-0.53); HEMATOCRIT 24.5 % (40.0-51.0); HEMOGLOBIN 7.9 g/dL (13.6-17.8); IMMATURE GRANULOCYTES 0.3 %; IMMATURE GRANULOCYTES ABSOLUTE 0.04 10/3/uL (0.0-0.11); LYMPHOCYTES 12.5 %; LYMPHOCYTES ABSOLUTE 1.81 10/3/uL (0.67-4.30); MEAN CORPUS HGB CONC 32.2 g/dL (32.0-36.0); MEAN CORPUSCULAR HEMOGLOB 31.7 pg (26.0-34.0); MEAN CORPUSCULAR VOLUME 98.4 fL (80-100); MONOCYTES ABSOLUTE 1.15 10/3/uL (0.21-1.20); NEUTROPHILS 71.4 %; NEUTROPHILS ABSOLUTE 10.33 10/3/uL (2.02-8.40); PLATELET COUNT 435 10/3/uL (150-400); RBC DISTRIBUTION WIDTH 16.8 % (12.0-16.0); RED CELL COUNT 2.49 10/6/uL (4.7-6.1); WHITE BLOOD CELLS 14.5 10/3/uL (4.5-10.5)
[2016-07-31 05:06] LABS: MANUAL DIFF NO %
[2016-08-01 04:23] LABS: BASOPHILS 0.3 %; BASOPHILS ABSOLUTE 0.03 10/3/uL (0.0-0.16); EOSINOPHILS ABSOLUTE 0.87 10/3/uL (0.0-0.53); HEMOGLOBIN 8.7 g/dL (13.6-17.8); IMMATURE GRANULOCYTES 0.3 %; IMMATURE GRANULOCYTES ABSOLUTE 0.03 10/3/uL (0.0-0.11); LYMPHOCYTES 16.1 %; LYMPHOCYTES ABSOLUTE 1.74 10/3/uL (0.67-4.30); MEAN CORPUS HGB CONC 31.8 g/dL (32.0-36.0); MEAN CORPUSCULAR HEMOGLOB 30.6 pg (26.0-34.0); MEAN CORPUSCULAR VOLUME 96.5 fL (80-100); MEAN PLATELET VOLUME 11.9 fL (9.2-13.0); MONOCYTES 7.9 %; MONOCYTES ABSOLUTE 0.86 10/3/uL (0.21-1.20); NEUTROPHILS 67.4 %; PLATELET COUNT 439 10/3/uL (150-400); RBC DISTRIBUTION WIDTH 16.8 % (12.0-16.0); RED CELL COUNT 2.84 10/6/uL (4.7-6.1); WHITE BLOOD CELLS 10.8 10/3/uL (4.5-10.5)
[2016-08-01 04:35] LABS: HEMATOCRIT 27.4 % (40.0-51.0); MANUAL DIFF NO %
[2016-08-01 04:38] LABS: A/G RATIO 0.2 (0.7-1.9); ALBUMIN 1.4 G/DL (3.5-5.0); CALCIUM, SERUM 9.1 MG/DL (8.5-10.4); CHLORIDE, SERUM 115 MMOL/L (96-112); CO2 (CARBON DIOXIDE) 25 MMOL/L (24-34); CREATININE 1.39 MG/DL (0.70-1.30); GFR AFRICAN AMERICAN 59 ML/MIN (>=60); GFR NON AFRICAN AMERICAN 51 ML/MIN (>=60); GLOBULIN 6.2 G/DL (2.5-4.1); PHOSPHORUS, SERUM 2.7 MG/DL (2.5-4.5); POTASSIUM, SERUM 4.3 MMOL/L (3.5-5.3); SGOT(AST) 55 U/L (5-40); SGPT(ALT) 37 U/L (5-65); SODIUM, SERUM 149 MMOL/L (135-148); TOTAL BILIRUBIN 1.6 MG/DL (0-1.2); TOTAL PROTEIN 7.6 G/DL (6.0-8.5)
[2016-08-01 04:39] LABS: BUN (BLOOD UREA NITROGEN) 69 MG/DL (6-23); GLUCOSE, SERUM 150 MG/DL (60-99)
[2016-08-01 04:40] LABS: ALKALINE PHOSPHATASE 114 U/L (45-117)
[2016-08-01 05:51] LABS: PROCALCITONIN 0.41 ng/mL (<0.5)
[2016-08-02 04:24] LABS: BASOPHILS 0.4 %; BASOPHILS ABSOLUTE 0.04 10/3/uL (0.0-0.16); EOSINOPHILS 7.2 %; EOSINOPHILS ABSOLUTE 0.77 10/3/uL (0.0-0.53); HEMOGLOBIN 7.7 g/dL (13.6-17.8); IMMATURE GRANULOCYTES 0.3 %; IMMATURE GRANULOCYTES ABSOLUTE 0.03 10/3/uL (0.0-0.11); LYMPHOCYTES 16.6 %; LYMPHOCYTES ABSOLUTE 1.78 10/3/uL (0.67-4.30); MEAN CORPUS HGB CONC 31.6 g/dL (32.0-36.0); MEAN CORPUSCULAR HEMOGLOB 30.6 pg (26.0-34.0); MEAN CORPUSCULAR VOLUME 96.8 fL (80-100); MEAN PLATELET VOLUME 11.6 fL (9.2-13.0); MONOCYTES 8.3 %; MONOCYTES ABSOLUTE 0.89 10/3/uL (0.21-1.20); NEUTROPHILS 67.2 %; NEUTROPHILS ABSOLUTE 7.22 10/3/uL (2.02-8.40); PLATELET COUNT 456 10/3/uL (150-400); RBC DISTRIBUTION WIDTH 16.7 % (12.0-16.0); RED CELL COUNT 2.52 10/6/uL (4.7-6.1); WHITE BLOOD CELLS 10.7 10/3/uL (4.5-10.5)
[2016-08-02 04:27] LABS: HEMATOCRIT 24.4 % (40.0-51.0); MANUAL DIFF NO %
[2016-08-02 04:39] LABS: CALCIUM, SERUM 8.9 MG/DL (8.5-10.4); CHLORIDE, SERUM 114 MMOL/L (96-112); CO2 (CARBON DIOXIDE) 25 MMOL/L (24-34); CREATININE 1.56 MG/DL (0.70-1.30); GFR AFRICAN AMERICAN 51 ML/MIN (>=60); GFR NON AFRICAN AMERICAN 44 ML/MIN (>=60); POTASSIUM, SERUM 4.4 MMOL/L (3.5-5.3); SODIUM, SERUM 148 MMOL/L (135-148)
[2016-08-02 04:43] LABS: BUN (BLOOD UREA NITROGEN) 87 MG/DL (6-23); GLUCOSE, SERUM 186 MG/DL (60-99)
[2016-08-02 12:09] LABS: ASCORBIC ACID (UR NOT ORDER) NEG (NEG); BILIRUBIN, URINE NEGATIVE (NEG); KETONE, URINE NEGATIVE (NEG); LEUKOCYTE ESTERASE(NOT OR TRACE (NEG); WBC (NOT ORDERED) (RFLEX) 6 (0-5)
[2016-08-03 04:30] LABS: BASOPHILS 0.4 %; BASOPHILS ABSOLUTE 0.04 10/3/uL (0.0-0.16); EOSINOPHILS 7.1 %; EOSINOPHILS ABSOLUTE 0.76 10/3/uL (0.0-0.53); HEMATOCRIT 22.2 % (40.0-51.0); HEMOGLOBIN 7.1 g/dL (13.6-17.8); IMMATURE GRANULOCYTES 0.4 %; IMMATURE GRANULOCYTES ABSOLUTE 0.04 10/3/uL (0.0-0.11); LYMPHOCYTES 17.4 %; LYMPHOCYTES ABSOLUTE 1.86 10/3/uL (0.67-4.30); MEAN CORPUSCULAR VOLUME 96.9 fL (80-100); MEAN PLATELET VOLUME 11.5 fL (9.2-13.0); MONOCYTES 7.7 %; MONOCYTES ABSOLUTE 0.82 10/3/uL (0.21-1.20); NEUTROPHILS ABSOLUTE 7.15 10/3/uL (2.02-8.40); PLATELET COUNT 440 10/3/uL (150-400); RBC DISTRIBUTION WIDTH 16.9 % (12.0-16.0); RED CELL COUNT 2.29 10/6/uL (4.7-6.1); WHITE BLOOD CELLS 10.7 10/3/uL (4.5-10.5)
[2016-08-03 04:31] LABS: MANUAL DIFF NO %
[2016-08-03 04:32] LABS: PROTIME (NOT ORD) 22.7 SEC (12.0-14.5)
[2016-08-03 04:37] LABS: A/G RATIO 0.2 (0.7-1.9); ALBUMIN 1.2 G/DL (3.5-5.0); BUN (BLOOD UREA NITROGEN) 92 MG/DL (6-23); CALCIUM, SERUM 9.1 MG/DL (8.5-10.4); CHLORIDE, SERUM 114 MMOL/L (96-112); CO2 (CARBON DIOXIDE) 28 MMOL/L (24-34); GFR AFRICAN AMERICAN 46 ML/MIN (>=60); GFR NON AFRICAN AMERICAN 40 ML/MIN (>=60); GLOBULIN 5.5 G/DL (2.5-4.1); GLUCOSE, SERUM 182 MG/DL (60-99); PHOSPHORUS, SERUM 2.9 MG/DL (2.5-4.5); POTASSIUM, SERUM 4.7 MMOL/L (3.5-5.3); SGOT(AST) 44 U/L (5-40); SGPT(ALT) 29 U/L (5-65); SODIUM, SERUM 148 MMOL/L (135-148); TOTAL BILIRUBIN 1.1 MG/DL (0-1.2); TOTAL PROTEIN 6.7 G/DL (6.0-8.5)
[2016-08-03 04:38] LABS: ALKALINE PHOSPHATASE 101 U/L (45-117)
[2016-08-03 13:33] LABS: HEMATOCRIT 22.9 % (40.0-51.0); HEMOGLOBIN 7.4 g/dL (13.6-17.8)
[2016-08-04 04:20] LABS: BASOPHILS 0.5 %; BASOPHILS ABSOLUTE 0.06 10/3/uL (0.0-0.16); EOSINOPHILS 6.9 %; EOSINOPHILS ABSOLUTE 0.78 10/3/uL (0.0-0.53); HEMOGLOBIN 7.5 g/dL (13.6-17.8); IMMATURE GRANULOCYTES 0.4 %; IMMATURE GRANULOCYTES ABSOLUTE 0.05 10/3/uL (0.0-0.11); LYMPHOCYTES 18.8 %; LYMPHOCYTES ABSOLUTE 2.11 10/3/uL (0.67-4.30); MEAN CORPUS HGB CONC 32.6 g/dL (32.0-36.0); MEAN PLATELET VOLUME 11.6 fL (9.2-13.0); MONOCYTES 7.9 %; MONOCYTES ABSOLUTE 0.89 10/3/uL (0.21-1.20); NEUTROPHILS 65.5 %; NEUTROPHILS ABSOLUTE 7.35 10/3/uL (2.02-8.40); PLATELET COUNT 435 10/3/uL (150-400); RBC DISTRIBUTION WIDTH 18.2 % (12.0-16.0); RED CELL COUNT 2.27 10/6/uL (4.7-6.1); WHITE BLOOD CELLS 11.2 10/3/uL (4.5-10.5)
[2016-08-04 04:23] LABS: ALBUMIN 1.3 G/DL (3.5-5.0); CALCIUM, SERUM 9.1 MG/DL (8.5-10.4); CHLORIDE, SERUM 110 MMOL/L (96-112); CO2 (CARBON DIOXIDE) 24 MMOL/L (24-34); CREATININE 1.95 MG/DL (0.70-1.30); GFR AFRICAN AMERICAN 39 ML/MIN (>=60); GFR NON AFRICAN AMERICAN 34 ML/MIN (>=60); GLUCOSE, SERUM 195 MG/DL (60-99); PHOSPHORUS, SERUM 3.4 MG/DL (2.5-4.5); POTASSIUM, SERUM 5.4 MMOL/L (3.5-5.3); SODIUM, SERUM 144 MMOL/L (135-148)
[2016-08-04 04:24] LABS: MANUAL DIFF NO %; MEAN CORPUSCULAR VOLUME 101.3 fL (80-100)
[2016-08-04 04:40] LABS: BUN (BLOOD UREA NITROGEN) 104 MG/DL (6-23)
== END 2016-08-04 18:38 | disposition left against medical advice (07) | DRG 4 ==
LOC: ER 19:52 → ER/OF 07-09 00:41 → CDU1 07-09 05:16 → CDU2 07-09 05:44 → 4SO 07-09 06:26 → CCU 07-10 02:07
PROVIDERS: Emergency Medicine; Internal Medicine; Internal Medicine Critical Care Medicine; Internal Medicine Infectious Disease; Internal Medicine Pulmonary Disease; Student in an Organized Health Care Education/Training Program
PROC: 5A1945Z Respiratory Ventilation, 24-96 Consecutive Hours (ICD-10-PCS; principal; 2016-07-09)
PROC: 0BH17EZ Insertion of Endotracheal Airway into Trachea, Via Natural or Artificial Opening (ICD-10-PCS; 2016-07-09)
PROC: 5A1955Z Respiratory Ventilation, Greater than 96 Consecutive Hours (ICD-10-PCS; 2016-07-09)
PROC: 0B110F4 Bypass Trachea to Cutaneous with Tracheostomy Device, Open Approach (ICD-10-PCS; 2016-07-09)
PROC: 02HV33Z Insertion of Infusion Device into Superior Vena Cava, Percutaneous Approach (ICD-10-PCS; 2016-07-10)
PROC: 4A02X4A Measurement of Cardiac Electrical Activity, Guidance, External Approach (ICD-10-PCS; 2016-07-10)
PROC: 0BH17EZ Insertion of Endotracheal Airway into Trachea, Via Natural or Artificial Opening (ICD-10-PCS; 2016-07-15)
PROC: B246ZZ4 Ultrasonography of Right and Left Heart, Transesophageal (ICD-10-PCS; 2016-07-26)
DX: J96.01 Acute respiratory failure with hypoxia (principal); J69.0 Pneumonitis due to inhalation of food and vomit; A41.2 Sepsis due to unspecified staphylococcus; R65.21 Severe sepsis with septic shock; L89.152 Pressure ulcer of sacral region, stage 2; G93.1 Anoxic brain damage, not elsewhere classified; N17.9 Acute kidney failure, unspecified; E87.0 Hyperosmolality and hypernatremia; I46.9 Cardiac arrest, cause unspecified; I50.22 Chronic systolic (congestive) heart failure; I48.92 Unspecified atrial flutter; E46 Unspecified protein-calorie malnutrition; K91.3 Postprocedural intestinal obstruction; I13.0 Hypertensive heart and chronic kidney disease with heart failure and stage 1 through stage 4 chronic kidney disease, or unspecified chronic kidney disease; J96.02 Acute respiratory failure with hypercapnia; I51.3 Intracardiac thrombosis, not elsewhere classified; E11.65 Type 2 diabetes mellitus with hyperglycemia; Z51.5 Encounter for palliative care; J44.9 Chronic obstructive pulmonary disease, unspecified; N18.9 Chronic kidney disease, unspecified; E87.5 Hyperkalemia; L89.90 Pressure ulcer of unspecified site, unspecified stage; I25.5 Ischemic cardiomyopathy; I48.2 Chronic atrial fibrillation; I25.10 Atherosclerotic heart disease of native coronary artery without angina pectoris; Z66 Do not resuscitate; J45.909 Unspecified asthma, uncomplicated; E78.5 Hyperlipidemia, unspecified; G47.33 Obstructive sleep apnea (adult) (pediatric); K29.70 Gastritis, unspecified, without bleeding; E86.0 Dehydration; I36.1 Nonrheumatic tricuspid (valve) insufficiency; I37.1 Nonrheumatic pulmonary valve insufficiency; Z79.01 Long term (current) use of anticoagulants; Z95.1 Presence of aortocoronary bypass graft; Z95.810 Presence of automatic (implantable) cardiac defibrillator; Z87.891 Personal history of nicotine dependence; Z82.49 Family history of ischemic heart disease and other diseases of the circulatory system; Z68.24 Body mass index [BMI] 24.0-24.9, adult
CPT/HCPCS: 31500; 31720; 36569; 36600; 70450; 71010; 74000; 80048; 80053; 80069; 80076; 80202; 81001; 82140; 82330; 82533; 82607; 82746; 82803; 82805; 82947; 82962; 83605; 83735; 83880; 83935; 84100; 84132; 84134; 84145; 84295; 84300; 84439; 84443; 84484; 85014; 85018; 85025; 85610; 85730; 87040; 87070; 87077; 87150; 87186; 87205; 87493; 87493-59; 87641; 92950; 93005; 93306; 93312; 93320; 93325; 94002; 94003; 94640; 94660; 94770; 95816; 96374; 96375; 96376; 96523; 97162-GP; 97164-GP; 97166-GO; 99285; A9270-GY; C1751; C1894; C9113; G0463; J0692; J1953; J2250; J2405; J2543; J2550; J2765; J2997; J3010; J3370; P9047

== ENCOUNTER 2016-08-09 08:54 | Inpatient (IN) | payer BC, OTHER ==
--- NOTE | ~2016-08-09 | IDS ---
Interim Discharge Summary [facility] [address] [place]. [address] NAME: RUCHI CORMIER : 45 STATUS : ADM IN [facility]#: [id number] AGE: 71 ADM/REG DATE : 08/09/16 MR#: [id number] REPORT SERV DATE: 08/27/16 DICTATED BY: Madeleine MCGEE DATE: 08/27/16 REPORT STATUS : Draft TRANSCRIBED BY: MODL DATE: 08/27/16 ADMISSION DATE: 08/09/2016 DISCHARGE DATE: DATE OF INTERIM SUMMARY: 08/27/2016. For details of early part of hospital stay, essentially from 08/09/2016 through 08/17/2016 will need to be dictated by the critical care team who managed the patient's care during that portion of his medical stay. This interim summary will service to document his medical care starting 08/17/2016 through today 08/27/2016. ACTIVE CONSULTANTS: Palliative Care, Infectious Disease, Pulmonology, Nephrology and Neurology. RECENT PROCEDURES: None. DIAGNOSES: At the time of this interim summary: 1. Dense encephalopathy expected to be a combination of anoxic brain injury plus toxic metabolic encephalopathy. 2. Progressive acute kidney injury to end-stage renal disease. Dialysis not a treatment option. 3. Ischemic cardiomyopathy, ejection fraction 20%. Known AICD in place. 4. Atrial fibrillation. Medication changed from Eliquis to Coumadin due to declining renal function. 5. Chronic respiratory failure requiring mechanical ventilation with previous trach placed. 6. Oropharyngeal dysphagia requiring PEG tube. Chronic Whelan catheter. 7. Stage III sacral deep tissue injury as well as bilateral deep tissue injury to the heel. All present on admission. 8. VRE bacteremia, on long-term daptomycin therapy per Infectious Disease. 9. Multifactorial anemia requiring blood transfusion. 10.Insulin-requiring diabetes. 11.Chronic obstructive pulmonary disease. HOSPITAL COURSE: Starting 08/17/2016, the patient was transitioned from the ICU setting to intermediate care on ongoing ventilatory management via his trach as well as ongoing IV antibiotics per ID and tube feeding for nutrition via his PEG tube. The patient has had multiple end-stage organ issues including advanced brain injury, ongoing respiratory failure, severe cardiomyopathy, and progressive acute kidney injury toward end-stage renal disease. Palliative Care has been involved in his care for a long time and has had numerous conversations with the family. They met on the with recommendations for transitioning to comfort care. The family declined at that point to address code status or to consider deescalation of care. As a result of that meeting, [facility]'s ethics committee was involved and met with the medical team and had a conversation with the power of wellhead pumper via phone. At that point, no decision was reached by the family with regard to ongoing aggressive level of care or code status. The recommendations from the ethics committee at that time was to Interim Discharge Summary [place] [id number] [facility] [address] [place]. [address] NAME: RUCHI CORMIER : 45 STATUS : ADM IN PAT#: [id number] AGE: 71 ADM/REG DATE : 08/09/16 MR#: [id number] REPORT SERV DATE: 08/27/16 DICTATED BY: Madeleine MCGEE DATE: 08/27/16 REPORT STATUS : Draft TRANSCRIBED BY: RANJIT DATE: 08/27/16 complete the DNR form based on his multi-system organ failure and the futility of resuscitation efforts in that setting. As a result, Dr. Go Dumas from Palliative Care and myself signed the DNR form as to license physician in the [facility] declaring that he would be do not resuscitate. There were no efforts or plans made at that juncture to deescalate care. The patient's hospitalist care was then transitioned to Dr. Sophia Worrell who continues to be the primary hospitalist on his case. The plan is to continue ongoing medical management and support with the above mentioned specialist with the plans to meet with the family again on the . The patient has had a continual decline in his renal function with worsening of his labs and persistent low blood pressure with ongoing recommendations from Nephrology that dialysis is not a consideration for treatment options due to his instability. A multifactorial team did meet with the family on that included representation from ethics committee, Palliative Care, Hospitalist Service, Neurology and pastoral care. After a lengthy discussion regarding the patient's current clinical status, updating the family with the current medical data and the expectations from the medical team regarding his recovery potential, the family at this point is not comfortable withdrawing care and assisted things should be continued as, or with the understanding that his last related wish for his care that everything be done to maintain his life. As a result of that meeting, the patient will continue as a DNR per his code status based on the underlying futility of resuscitation efforts, but at present, we will make no efforts to withdraw current support and continue with ongoing appropriate medical evaluation and monitoring for his multiple medical problems. Due to the nature of his multi system organ failure, the outlook for this patient is appropriately gram. The family is well aware of the severity of his organ failure in the likelihood that he will succumb to his multiple medical problems in the near future. The patient's ongoing hospitalist care will be provided by Dr. Worrell, which will transition to myself starting next Wednesday with ongoing subspecialty support as mentioned above. ZEINA/EMILIAL Madeleine Mcgee M.D. / [id number] CC: Santino Worrell M.D.
--- NOTE | ~2016-08-09 | DS ---
Discharge Summary [place] [id number] [facility] [place]. [address] NAME: RUCHI CORMIER : 45 STATUS : DIS IN PAT#: [id number] AGE: 71 ADM/REG DATE : 08/09/16 MR#: [id number] REPORT SERV DATE: 11/14/16 DICTATED BY: Madeleine GONZALEZ DATE: 11/14/16 REPORT STATUS : Draft TRANSCRIBED BY: MODEmmett DATE: 11/14/16 ADMISSION DATE: 08/09/2016 DISCHARGE DATE: 09/09/2016 DATE OF : 09/08/2016. 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 CONSULTS: Pulmonology and Infectious Disease. PROCEDURES: None. HOSPITAL COURSE: Starting 09/05/2016, the patient currently a DNR with multiple end-stage processes. The patient has been continued on with general medical care and close observation. Family has been reluctant to actively withdrawal of ventilatory support. The patient ultimately succumbed to his multiple medical problems and was pronounced per hospital protocol on 09/08/2016. No autopsy was requested. No organ donation was appropriate. The certificate was completed by myself at the time of the patient's demise. DICTATED BY: Madeleine Gonzalez M.D. [facility]/RANJIT Madeleine Gonzalez M.D. / [id number] CC: Madeleine Gonzalez M.D. NO PCP
--- NOTE | ~2016-08-09 | CN ---
Consultation Report [facility] [address] [place]. [address] NAME: RUCHI CORMIER : 45 STATUS : ADM IN [facility]#: [id number] AGE: 71 ADM/REG DATE : 08/09/16 MR#: [id number] REPORT SERV DATE: 08/11/16 DICTATED BY: SOM BRANTLEY DATE: 08/10/16 REPORT STATUS : Draft TRANSCRIBED BY: RANJIT DATE: 08/10/16 NEUROLOGICAL CONSULTATION DATE OF CONSULTATION: 08/10/2016 LOCATION OF THE PATIENT: CCU, bed 8. HISTORY OF PRESENT ILLNESS: This is a 71-year-old male with known history of long hospitalization for multiple medical problems, which included respiratory failure, recurrent aspiration pneumonia, ischemic cardiomyopathy secondary to coronary artery disease with ejection fraction of 25%, status post cardiac arrest on 07/16/2016, chronic encephalopathy with possible recurrent seizures treated with Keppra, chronic atrial fibrillation, COPD, type 2 diabetes mellitus on insulin, chronic renal failure with acute renal failure superimposed with sepsis secondary to long-standing decubiti, who was recently discharged from this facility to [facility]. The patient was discharged after eventually had undergone tracheostomy. The patient's family had difficult time deciding whether the patient should remain a full code or no code status during his previous hospitalization. The patient was seen by Neurology during his previous hospitalization for signs of possible myoclonus. The patient was showing signs of recurrent activity suggestive of underlying seizures secondary to metabolic encephalopathy. The patient also has a history of mild underlying dementia and obstructive sleep apnea. SOCIAL HISTORY: The patient was a smoker, quit recently. The patient does not have any children. One of his nieces is a power of attorney recruiter. FAMILY HISTORY: Positive for history of heart disease and hypertension. REVIEW OF SYSTEMS: Review of systems was difficult since the patient was not able to communicate; however, his prior hospitalization was prolonged involving abnormalities affecting multiple systems including central nervous system. The patient has remained a full code. Neurological re-evaluation was requested for assessing the patient and prognosticate his possible recovery. PHYSICAL EXAMINATION: GENERAL: The patient is status post tracheostomy and appeared chronically ill looking. Examination otherwise showed him to be in no acute distress. VITAL SIGNS: Show blood pressure 124/56, pulse was 71, respirations 21, O2 saturation 100%, and temperature was 98, weight 74.53 kg. HEENT AND NECK: The patient had no signs of visible trauma on examination of his head and neck. Pupils were equal, round, and reactive to light and accommodation. Neck was supple. There was no Kernig or Brudzinski. HEART: Auscultation of his heart irregular S1 and S2. I did not appreciate any murmurs. ABDOMEN: Status post PEG, soft, and nontender. The patient has an indwelling Whelan Consultation Report [address] [address] NAME: RUCHI CORMIER : 45 STATUS : ADM IN [facility]#: [id number] AGE: 71 ADM/REG DATE : 08/09/16 MR#: [id number] REPORT SERV DATE: 08/11/16 DICTATED BY: SOM BRANTLEY DATE: 08/10/16 REPORT STATUS : Draft TRANSCRIBED BY: RANJIT DATE: 08/10/16 catheter. EXTREMITIES: Show some edema which appeared to be nonpitting. SKIN: Clear no ecchymosis, petechiae, or hemorrhages noted. NEUROLOGICAL: The patient appeared alert, directed his eyes and head towards the examiner appeared to mouth some words, which seemed appropriate, however, did not follow commands. It is quite possible that the patient's extremities are extremely weak. During the patient's previous hospitalization, he was able to raise his arms spontaneously, although he did not follow commands. No significant asymmetry of activity was noted on examination of the tone and no evidence of tonic-clonic activity seen. Deep tendon reflexes were 1+ over 2 in upper extremities, 0 for 2 in lower extremities. Babinski signs were not elicitable. Sensory exam: The patient had some withdrawal to pain bilaterally in lower extremities, very weak withdrawal was noted. LABORATORY STUDIES: On admission in the emergency room, BUN was 174, today 127; creatinine 3.67. ABGs on admission showed pH of 7.36, CO2 of 37, O2 of 71 on 35% oxygen. CBC showed WBC of 12.7, hemoglobin was 7, hematocrit 21.4, RDW 16.8, platelet count 172,000. PT/INR was 1.6. Urinalysis was positive for wbc's count of 182. BNP 563.9, procalcitonin 0.68, potassium 5.5. The patient's EEG in the past showed signs of metabolic encephalopathy. Repeat EEG today showed evidence of great decrease of encephalopathic process; however, the patient's background activity appears slower with frequency of 6 to 7 Hz as compared to normal 9 to 12 Hz. No seizure activity was observed during this EEG. IMPRESSION: 1. Chronic encephalopathy, most likely multifactorial secondary to past events which could have caused hypoxic or anoxic brain damage. These events included past history of myocardial infarctions, respiratory failure, sepsis, and persistent metabolic derangement. The patient is ventilator dependent secondary to chronic hypoxemic and hypercapnic respiratory failure, status post tracheostomy. 2. Acute renal failure superimposed on chronic renal failure. The patient has a persistent decubiti and clearly he is dependent on chronic skilled care. The patient has chronic ischemic cardiomyopathy with poor ejection fraction, which contributes to decreased chances of his physical recovery. The patient appears to have diffuse muscle weakness which may be secondary to critical care myopathy causing proximal and distal muscle weakness in a patient who chronically ventilator dependent. 3. Chronic malnutrition contributes to the patient's decreased chances of meaningful recovery. From neurological standpoint, the patient has evidence of some improvement of neurological function on the EEG, however, with multiple underlying medical problems mentioned above, the chances of meaningful recovery are quite decreased. We will discuss above with the patient niece, who is a power of attorney recruiter. We will discuss above with Dr. Syed in ICU team. Thank you for allowing me to participate in this patient's care. Consultation Report [address] [address] NAME: RUCHI CORMIER : 45 STATUS : ADM IN [facility]#: [id number] AGE: 71 ADM/REG DATE : 08/09/16 MR#: [id number] REPORT SERV DATE: 08/11/16 DICTATED BY: SOM BRANTLEY DATE: 08/10/16 REPORT STATUS : Draft TRANSCRIBED BY: MODL DATE: 08/10/16 LORY/RANJIT Som Brantley MD / [id number] CC: Samantha Syed MD NO PCP
--- NOTE | ~2016-08-09 | EEG ---
Electroencephalogram [id number] [place]. [address] NAME: RUCHI CORMIER : 45 STATUS : ADM IN PAT#: [id number] AGE: 71 ADM/REG DATE : 08/09/16 MR#: [id number] REPORT SERV DATE: 08/11/16 DICTATED BY: SOM BRANTLEY DATE: 08/10/16 REPORT STATUS : Draft TRANSCRIBED BY: RANJIT DATE: 08/10/16 INTERPRETING PHYSICIAN: Som Brantley M.D. REASON FOR EEG: Encephalopathy and respiratory failure. LOCATION OF THE PATIENT: The patient's location is CCU bed-8. 23 surface electrodes, 10-20 international placement was used. The patient was noted to be awake, drowsy, and asleep. Photic stimulation was performed. The background activity consisted of very low voltage, 5-6 cycles per second located in the posterior head regions. This activity was only visualized from increased magnification. The patient intermittently appeared to be asleep. Overall remained with his eyes open and occasionally was restless moving his head. During sleep, slight increase of low-voltage biphasic and triphasic waveforms were seen. Appeared asynchronous in the anterior and central head regions. No paroxysmal or epileptiform activity was seen during this study. The patient did not follow commands during the study. Photic stimulation did not bring out additional changes or abnormalities. IMPRESSION: ABNORMAL EEG CHARACTERIZED BY PRESENCE OF DEPRESSION OF AMPLITUDE AND SLOWING OF CEREBRAL ACTIVITY, INTERMITTENT LOW VOLTAGE BIPHASIC AND TRIPHASIC WAVEFORMS SHOW SIGNS OF METABOLIC ENCEPHALOPATHY. COMPARED TO THE PREVIOUS STUDY OBTAINED DURING PREVIOUS HOSPITALIZATION, THE PATIENT'S ENCEPHALOPATHIC CHANGES HAVE DIMINISHED. NO EVIDENCE OF EPILEPTIFORM ACTIVITY WAS PRESENT DURING THIS EEG. THIS EEG IS COMPATIBLE WITH DIFFUSE CEREBRAL DYSFUNCTION. CLINICAL CORRELATION IS RECOMMENDED. LORY/RANJIT Som Brantley MD / [id number] CC: Samantha Syed MD
--- NOTE | ~2016-08-09 | HP ---
History And Physical [id number] [facility] [place]. [address] NAME: RUCHI CORMIER : 45 STATUS : ADM IN [facility]#: [id number] AGE: 71 ADM/REG DATE : 08/09/16 MR#: [id number] REPORT SERV DATE: 08/09/16 DICTATED BY: SAMANTHA MARC DATE: 08/09/16 REPORT STATUS : Draft TRANSCRIBED BY: MODL DATE: 08/09/16 DATE OF ADMISSION: 08/09/2016 REASON FOR ADMISSION: Encephalopathy and renal failure. HISTORY OF PRESENT ILLNESS: Mr. Ruchi Cormier is a gentleman who is very well known to me from our service and was actually just discharged to [place] a couple of days ago. He is a 71- year-old male with underlying ischemic cardiomyopathy secondary to coronary artery disease, who actually had a cardiac arrest on 07/16/2016. He has profound encephalopathy; there has been ongoing debate as to whether it is more related to toxic metabolic etiologies or anoxia. He also has mild underlying dementia. During his past hospitalization, he had multiple complications. Please see the dictated reports from our service as well as the consulting services for details. He was ultimately transferred to [place] a couple of days ago and had worsening of his encephalopathy and some pallor and was sent back to our emergency department this morning for further evaluation by Dr. Bailey at [place]. He was seen by Dr. Reed in the emergency department and found to have acute renal failure with a potassium of 5.5, BUN of 174, and creatinine of 3.67. He received some gentle hydration in the emergency department and was admitted to the intensive care unit for further care. PAST MEDICAL HISTORY: Includes acute hypoxemic and hypercapnic respiratory failure, status post trach on mechanical ventilation beginning last month; recurrent aspiration pneumonia, most recently Klebsiella; ischemic cardiomyopathy secondary to coronary artery disease with EF of approximately 25% status post cardiac arrest on 07/16/2016; encephalopathy, toxic, metabolic versus anoxic; seizure disorder, on Keppra; chronic atrial fibrillation with variable rate control; COPD, on bronchodilator therapy; type 2 diabetes mellitus, on insulin; acute kidney injury, superimposed on to some degree of chronic kidney disease; multiple electrolyte abnormalities; peripheral arterial disease; and sacral decubitus which were present on admission. He has also had recent staph bacteremia, concern for endocarditis, although that was ultimately ruled out and BPH. He underwent tracheostomy on 07/28/2016. Other past medical history includes dyslipidemia, obstructive sleep apnea, and gastritis. PAST SURGICAL HISTORY: Trach as above, CABG in 1989 with AICD insertion subsequently, cholecystectomy, ablation, right leg surgery, and G-tube placement. SOCIAL HISTORY: Prior smoker, has quit since his hospitalization last month. He has no alcohol or illicit drug use and has a niece who makes his medical decisions. He lived at home until he was hospitalized last month and has been living between our hospital and [place] since. FAMILY HISTORY: Coronary artery disease, hypertension, and dyslipidemia in multiple first- degree relatives. ALLERGIES: NONE KNOWN. History And Physical [address] [address] NAME: RUCHI CORMIER : 45 STATUS : ADM IN [facility]#: [id number] AGE: 71 ADM/REG DATE : 08/09/16 MR#: [id number] REPORT SERV DATE: 08/09/16 DICTATED BY: SAMANTHA MARC DATE: 08/09/16 REPORT STATUS : Draft TRANSCRIBED BY: RANJIT DATE: 08/09/16 HOME MEDICATIONS: From the facility have been reviewed. Please see the detailed MAR in the chart for additional information with regard to medications, dosing, and frequencies. REVIEW OF SYSTEMS: Completed and was negative except for those points described above in the history of present illness section of the dictation. ADVANCE DIRECTIVES/LIVING DC: None. He is a full code, although his niece is considering making adjustments to that pending Neurology evaluation for prognostication of his encephalopathy. PHYSICAL EXAMINATION: VITAL SIGNS: Stable. GENERAL: He is an male, in no acute distress. He is chronically ill appearing with a trach and PEG and is unresponsive to verbal stimulus. HEENT: Head is atraumatic and normocephalic. Pupils are equal, round, and reactive to light. He does not track. Ears, nose, and mouth are unremarkable. He has dry oral mucosa and poor oral dentition. NECK: Supple without significant JVD. He has a trach which is clean, dry, and without active bleeding. CHEST: Significant for diminished breath sounds bilaterally, consistent with COPD. HEART: S1, S2, irregularly irregular with brisk cap refill in distal extremities. ABDOMEN: He has a G-tube in place. Abdomen is otherwise soft, nontender, nondistended with positive bowel sounds in all four quadrants. : Whelan catheter is indwelling. EXTREMITIES: Have trace edema. LYMPHATIC: Exam is unremarkable. NEUROLOGIC: Exam is limited. He is encephalopathic and does not follow commands on cue. PSYCHIATRIC: Unable to assess due to acuity. DIAGNOSTIC DATA: Personal review of diagnostic workup completed in the emergency department today: Portable chest x-ray shows cardiomegaly with mild pulmonary edema with small bilateral pleural effusions. An ABG done in the ER shows a pH of 7.36, pCO2 of 37, pO2 of 71 on 35% oxygen. Base excess negative 4.4. CBC shows mild leukocytosis at 12.7 with an unremarkable differential. He has normochromic normocytic anemia with hemoglobin of 7 and hematocrit of 21.4 and mildly elevated RDW of 16.8. His platelet count is adequate at 372. Coags are significant for an INR of 1.6. Of note, he does use home Eliquis. Urinalysis shows greater than 182 white blood cells with many clumps and positive leukocyte esterase, consistent with pyuria/UTI. Lactate level is only 0.8. BNP level is 563.9. Metabolic profile shows an elevated procalcitonin of 0.68, potassium elevated at 5.5, which is consistent with his acute renal failure, with a BUN of 174 and creatinine of 3.67. He is not acidotic from metabolic standpoint and is mildly hyperglycemic with a glucose of 200. Transaminases are unremarkable other than mildly elevated alkaline phosphatase at 152, which is just above the upper limit of normal of 117 and a mildly elevated AST of 78. His troponin is mildly elevated at 0.09, likely secondary to demand. Previous records from [facility] have been reviewed as well as [place] records. History And Physical [address] [address] NAME: RUCHI CORMIER : 45 STATUS : ADM IN [facility]#: [id number] AGE: 71 ADM/REG DATE : 08/09/16 MR#: [id number] REPORT SERV DATE: 08/09/16 DICTATED BY: SAMANTHA MARC DATE: 08/09/16 REPORT STATUS : Draft TRANSCRIBED BY: MODL DATE: 08/09/16 IMPRESSION: 1. Chronic hypoxemic and hypercapnic respiratory failure, status post tracheostomy with need for long-term mechanical ventilation. 2. Encephalopathy, toxic, metabolic versus anoxic. Uremia and sepsis are certainly contributing factors; however, there is likely some component of anoxia which will be irreversible. We have asked Neurology to assess. 3. Acute renal failure. We will work him up with a renal ultrasound, urine studies, and hydrate him aggressively overnight. If he fails to improve, we will involve Nephrology tomorrow morning. A urine culture has been sent and a Whelan has been placed. 4. Coronary artery disease with ischemic cardiomyopathy. He has mild demand ischemia which we will monitor and continue his home cardiac medications. 5. Urinary tract infection. He will be started on broad-spectrum antibiotics. His lactate level is 0.8, and we will send blood, urine, and sputum for culture such that his antibiotics can be tailored to an appropriate regimen based on his culture data. 6. Protein calorie malnutrition. His last pre-albumin was 9.2. He will be resumed on feedings and we will ask Nutrition to assess. 7. Hyperkalemia. We will hydrate and recheck his potassium level later today. 8. Mildly elevated transaminases. We will trend. 9. Normochromic, normocytic anemia, likely secondary to chronic disease. We will hold his Eliquis for tonight and give him one unit of packed red blood cells in light of his cardiac history. His hemoglobin was 7.5 upon his departure a few days ago. He will be covered with a proton pump inhibitor. 10.Prophylaxis: PPI and SCDs and TEDs until Eliquis can be resumed. 11.Full code. We will continue to monitor Mr. Cormier closely in the intensive care unit and make adjustments to his regimen as clinically warranted. This case was discussed with Dr. Som Brantley this afternoon and the patient's niece has been updated at the bedside. BRYAN/RANJIT Samantha Marc MD / [id number] CC: Samantha Marc MD
--- NOTE | ~2016-08-09 | CN ---
Consultation Report [facility] [address] [place]. [address] NAME: RUCHI CORMIER : 45 STATUS : ADM IN PAT#: [id number] AGE: 71 ADM/REG DATE : 08/09/16 MR#: [id number] REPORT SERV DATE: 08/12/16 DICTATED BY: CRUZ DUNCAN DATE: 08/11/16 REPORT STATUS : Draft TRANSCRIBED BY: MODEmmett DATE: 08/11/16 NEPHROLOGY CONSULTATION DATE OF CONSULTATION: 08/11/2016 CHIEF COMPLAINT: Acute kidney insufficiency, hyperkalemia. HISTORY OF PRESENT ILLNESS: The patient is a 71-year-old male with past medical history of stage 2-3 CKD (creatinine 1.0 on 07/30/2016), ischemic cardiomyopathy, CABG, AICD, systolic CHF with an ejection fraction of 25%, chronic respiratory failure, COPD, LISA, diabetes, PAD, sacral decubitus. He was transferred back to [facility] from [place] for further evaluation of neurological status. The patient was hospitalized in 07/2016 with complicated hospital course. He did have a cardiac arrest on 07/16/2016. As mentioned above, the patient has a known CABG with AICD. During this hospitalization, he had an echocardiogram that showed systolic CHF an ejection fraction of 25% with decreased RV function. He had mild ND. These imaging studies completed in the setting of chronic atrial fibrillation. He had a TTE and a NIMESH both for evaluation of his heart function and to evaluate for endocarditis. NIMESH did not show any evidence of endocarditis. The patient continued to have altered mental status during his previous hospitalization, thought perhaps to be secondary to anoxic brain injury in the setting of cardiac arrest perhaps with metabolic encephalopathy. The patient has a trach in place, on chronic mechanical ventilation. He does have a past medical history of COPD and LISA. During his last hospitalization, he had a coag-negative Staph sepsis leading to shock. The patient's albumin is less than 2. He is noted to have a sacral decubitus. He has a G-tube in place. Trach in place. On initial presentation with decreasing mental status at the outside facility, the patient was noted to have a BUN of 174 and a creatinine of 3.67. He was also noted to have elevated potassium of 5.5. The patient's creatinine was noted to be 0.99 on 07/30/2016, but 1.95 prior to his transfer on 08/04/2016 to [place]. Creatinine as mentioned above on presentation was 3.67 initially and went down to 3.12. Today, it is 4.1. BUN is in the 100s to 170s. He was noted to have a hemoglobin of 6.7 and he received 2 units of packed red blood cells. Noted to be on Eliquis with his history of chronic atrial fibrillation. Urinalysis was consistent with urinary tract infection. His renal ultrasound showed no obstructive uropathy and normal-sized kidneys. Repeat blood cultures during this hospitalization showed enterococcus, resistant to vancomycin. PAST MEDICAL HISTORY/PAST SURGICAL HISTORY: 1. Stage 2-3 CKD with creatinine of 1.0 on 07/30/2016. 2. Ischemic cardiomyopathy with coronary artery disease with cardiac arrest on 07/16/2016. 3. CABG with AICD in 1989. 4. Chronic systolic CHF with ejection fraction of 25%, decreased RV function, mild pulmonary regurgitation. 5. Chronic atrial fibrillation. 6. History of altered mental status with anoxia, metabolic encephalopathy, seizure Consultation Report [address] [place]. [address] NAME: RUCHI CORMIER : 45 STATUS : ADM IN [facility]#: [id number] AGE: 71 ADM/REG DATE : 08/09/16 MR#: [id number] REPORT SERV DATE: 08/12/16 DICTATED BY: CRUZ DUNCAN DATE: 08/11/16 REPORT STATUS : Draft TRANSCRIBED BY: MODEmmett DATE: 08/11/16 disorder history. 7. Acute on chronic respiratory failure with trach in the past. 8. COPD, LISA, recurrent aspiration pneumonia. 9. Coag-negative Staph shock on last visit. 10.Type 2 diabetes. 11.Peripheral arterial disease. 12.Sacral decubitus. 13.BPH. 14.Gastritis. 15.Cholecystectomy. 16.G-tube. 17.Right leg surgery. REVIEW OF SYSTEMS: Complete review of systems is unobtainable due to the patient's current mental status. SOCIAL HISTORY: He came from [place]. FAMILY MEDICAL HISTORY: Not known to me at this time. ALLERGIES: NO KNOWN DRUG ALLERGIES. CURRENT MEDICATIONS: Include, 1. Maxipime. 2. Cubicin. 3. Multivitamin. 4. DuoNeb. 5. Keppra. 6. Brovana. 7. Pulmicort. PHYSICAL EXAMINATION: VITAL SIGNS: Temperature is 97.0. Pulse is 115 and irregularly irregular. Blood pressure is 123/73. GENERAL: He is a chronically appearing ill male, in no apparent distress. SKIN: No petechiae, purpura, or rash appreciated. NEUROLOGIC: His eyes are open. He does not track. He does not follow commands. No response to pain. HEENT: Normocephalic. Pupils are equal and reactive. NECK: No JVP. Trachea is midline with trach in place. No secretions appreciated. HEART: Irregularly irregular. No gallops or rubs appreciated. RESPIRATORY: Coarse breath sounds. No increased respiratory rate. Mechanical ventilation via trach. ABDOMEN: Soft, nontender. No bowel sounds. Clean and intact G-tube. EXTREMITIES: No peripheral edema. Consultation Report [address] [place]. [address] NAME: RUCHI CORMIER : 45 STATUS : ADM IN [facility]#: [id number] AGE: 71 ADM/REG DATE : 08/09/16 MR#: [id number] REPORT SERV DATE: 08/12/16 DICTATED BY: CRUZ DUNCAN DATE: 08/11/16 REPORT STATUS : Draft TRANSCRIBED BY: RANJIT DATE: 08/11/16 LABORATORY DATA: Included a potassium of 5.8, creatinine of 4.1. Hemoglobin is 7. Phosphorus is 6.2, magnesium is 3.1, CO2 of 21. BUN is in the 170s. IMAGING: Chest x-ray reviewed, pulmonary vascular congestion. ASSESSMENT: 1. Sepsis with documented enterococci bacteremia with the patient, noted to have an AICD in place. 2. Nonoliguric acute kidney insufficiency secondary to suspected acute tubular necrosis. Acute interstitial nephritis and postinfectious glomerulonephritis are less likely. There is no evidence of obstructive uropathy, thrombotic microangiopathy, or nephrotic syndrome. 3. Acute blood loss anemia and of concern with possible gastrointestinal bleed with the patient, on Eliquis. This is probably contributing to his elevated BUN in the setting of his acute kidney insufficiency. 4. Hyperkalemia secondary to acute kidney insufficiency and possible acute blood loss anemia. 5. Altered mental status with history of cardiac arrest on 07/16/2016 with concerns of anoxic brain injury plus or minus metabolic encephalopathy. The patient is on medication for possible seizure. 6. Chronic respiratory failure with trach. 7. Chronic systolic congestive heart failure with known decreased right ventricular function. 8. Chronic atrial fibrillation. 9. Sacral decubitus. 10.Stage 2 chronic kidney disease. PLAN: 1. Medical management with elevated potassium. 2. Avoid nephrotoxins. 3. IV fluids. 4. The patient overall is a poor candidate for renal replacement therapy in the setting of his acute on chronic comorbid conditions. I do not believe that renal replacement therapy will change his overall dismal prognosis. Continue medical supportive care. Discussed with Dr. Núñez. We will re-evaluate the patient. MIGUEG/RANJIT Cruz Duncan M.D. / [id number] Consultation Report [address] [address] NAME: RUCHI CORMIER : 45 STATUS : ADM IN PAT#: [id number] AGE: 71 ADM/REG DATE : 08/09/16 MR#: [id number] REPORT SERV DATE: 08/12/16 DICTATED BY: CRUZ DUNCAN DATE: 08/11/16 REPORT STATUS : Draft TRANSCRIBED BY: RANJIT DATE: 08/11/16 CC: Samantha Syed MD NO PCP
--- NOTE | ~2016-08-09 | DS ---
Discharge Summary [place] [place]. 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 ACTIVE CONSULTS: Pulmonology and Infectious Disease. PROCEDURES: None. BRIEF HOSPITAL COURSE: Since previous interim summary, the patient continues to be conservative management only. The patient has been made do not resuscitate by myself and Dr. Sandoval per Ethics Committee recommendations. Family had extensive involvement with recommendations to not accelerate therapy but also not to withdraw therapy and they are okay with the concept of DNR given his current medical issues. The patient continues on medical therapy, but his prognosis is quite grim. His BUN now is 302 with a creatinine of 8.55. His potassium is up to 5.9. We are holding his Coumadin due to an INR of 3.0. We will continue to monitor basic laboratory. He continues on IV Ancef for his bacteremia under the care of Infectious Disease. It is likely the patient will succumb to his medical problems any day as mentioned above. He is a DNR, and we have no plans to escalate therapy based on previous interactions with the family. The patient's hospitalist care will be provided by another member of the team starting 09/05/2016. KENNEDY/RANJIT Madeleine Mcgee M.D. / [id number] CC: Madeleine Mcgee M.D.
[~2016-08-09 08:54] MED LIST changes: +ASAB PEG; +COREG12 PEG; +DIOCTO50 MG/5 ML PEG; +DUONEB INH; +ELIQUIS 2.5 MG2.5 MG PEG; +FOLIC PEG; +L40 PEG; +LIPITOR40 PEG; +PRIN2.5 PEG; +SB325 PEG; +SENTAB PEG; +SPIRO25 PEG; +T PEG; +ZENPEP5000 UNIT PEG; +ZOFRAN8 PEG; +[UNRECOGNIZED DRUG - OTHER] PO
[2016-08-09 10:14] LABS: ALLENS TEST Pos; BE (BASE EXCESS) -4.4 MEQ/L (0 +/- 2.5); HCO3 (ACTUAL BICARBONATE) 20.6 MEQ/L (23-27); HEMOBLOGIN CONTENT 7.5 G/DL (14-18); INSTRUMENT SERIAL # 8087; METHEMOGLOBIN 0.5 % (0-3); MODE CMV; O2 CONTENT 9.6 VOL% (18-24); OPERATOR ID 13624; PCO2 (CO2 TENSION) 37 MMHG (35-45); PO2 (O2 TENSION) 71 MMHG (79-93); SAMPLE Arterial; TIDAL VOLUME 450 ML; pH 7.36 (7.37-7.43)
[2016-08-09 10:20] LABS: BASOPHILS 0.2 %; BASOPHILS ABSOLUTE 0.02 10/3/uL (0.0-0.16); EOSINOPHILS 4.8 %; EOSINOPHILS ABSOLUTE 0.61 10/3/uL (0.0-0.53); ER CBC TAT 0 Hrs 08 Mins; HEMATOCRIT 21.4 % (40.0-51.0); IMMATURE GRANULOCYTES 0.2 %; IMMATURE GRANULOCYTES ABSOLUTE 0.03 10/3/uL (0.0-0.11); LYMPHOCYTES 13.6 %; LYMPHOCYTES ABSOLUTE 1.72 10/3/uL (0.67-4.30); MANUAL DIFF NO %; MEAN CORPUS HGB CONC 32.7 g/dL (32.0-36.0); MEAN CORPUSCULAR HEMOGLOB 30.3 pg (26.0-34.0); MEAN CORPUSCULAR VOLUME 92.6 fL (80-100); MEAN PLATELET VOLUME 11.5 fL (9.2-13.0); MONOCYTES 10.6 %; MONOCYTES ABSOLUTE 1.35 10/3/uL (0.21-1.20); NEUTROPHILS 70.6 %; NEUTROPHILS ABSOLUTE 8.96 10/3/uL (2.02-8.40); PLATELET COUNT 372 10/3/uL (150-400); RBC DISTRIBUTION WIDTH 16.8 % (12.0-16.0); RED CELL COUNT 2.31 10/6/uL (4.7-6.1); WHITE BLOOD CELLS 12.7 10/3/uL (4.5-10.5)
[2016-08-09 10:28] LABS: INTERNATIONAL NORMAL RATI 1.6 UNITS (-); PARTIAL THROMBO TIME 57.2 SEC (22.5-37.2)
[2016-08-09 10:29] LABS: PROTIME (NOT ORD) 19.1 SEC (12.0-14.5)
[2016-08-09 10:32] LABS: ASCORBIC ACID (UR NOT ORDER) 40 (NEG); BILIRUBIN, URINE NEGATIVE (NEG); ER URINALYSIS TAT 0 Hrs 20 Mins; KETONE, URINE NEGATIVE (NEG); LEUKOCYTE ESTERASE(NOT OR LARGE (NEG); NITRITE (URINE) NEG (NEG)
[2016-08-09 10:33] LABS: WBC (NOT ORDERED) (RFLEX) > 182 (0-5)
[2016-08-09 10:37] LABS: A/G RATIO 0.2 (0.7-1.9); ALBUMIN 1.2 G/DL (3.5-5.0); ALKALINE PHOSPHATASE 152 U/L (45-117); BUN (BLOOD UREA NITROGEN) 174 MG/DL (6-23); CALCIUM, SERUM 9.1 MG/DL (8.5-10.4); CHLORIDE, SERUM 106 MMOL/L (96-112); CO2 (CARBON DIOXIDE) 24 MMOL/L (24-34); CREATININE 3.67 MG/DL (0.70-1.30); GFR AFRICAN AMERICAN 18 ML/MIN (>=60); GFR NON AFRICAN AMERICAN 16 ML/MIN (>=60); GLOBULIN 5.9 G/DL (2.5-4.1); GLUCOSE, SERUM 200 MG/DL (60-99); POTASSIUM, SERUM 5.5 MMOL/L (3.5-5.3); SGOT(AST) 78 U/L (5-40); SGPT(ALT) 64 U/L (5-65); SODIUM, SERUM 142 MMOL/L (135-148); TOTAL PROTEIN 7.1 G/DL (6.0-8.5); TROPONIN I 0.09 NG/ML (<0.05)
[2016-08-09 10:38] LABS: LACTATE 0.8 MMOL/L (0.3-2.4)
[2016-08-09 11:01] LABS: PROCALCITONIN 0.68 ng/mL (<0.5)
[2016-08-09] MEDS ORDERED: SEROQUEL25 PO (11:32)
[2016-08-09] MEDS ORDERED: MICONAZOLE CREA30 GM TOP (11:32)
[2016-08-09] MEDS ORDERED: PERIDEX PO (11:33)
[2016-08-09] MEDS ORDERED: PROTONIXIV IV (11:34)
[2016-08-09] MEDS ORDERED: FLOMAX4 PEG (11:35)
[2016-08-09] MEDS ORDERED: MELA3 PEG (11:36)
[2016-08-09] MEDS ORDERED: KEPPRA250 PEG (11:37)
[2016-08-09] MEDS ORDERED: LEVEMIR SC (11:37)
[2016-08-09] MEDS ORDERED: BROVANA15 MCG INH (11:39)
[2016-08-09] MEDS ORDERED: PULRESP.5 INH (11:40)
[2016-08-09 18:55] LABS: CREATININE, URINE 79.4 MG/DL
[2016-08-10 04:56] LABS: MEAN CORPUS HGB CONC 33.3 g/dL (32.0-36.0); MEAN CORPUSCULAR HEMOGLOB 30.7 pg (26.0-34.0); MEAN CORPUSCULAR VOLUME 92.2 fL (80-100); PLATELET COUNT 298 10/3/uL (150-400); RBC DISTRIBUTION WIDTH 16.5 % (12.0-16.0); RED CELL COUNT 2.18 10/6/uL (4.7-6.1); WHITE BLOOD CELLS 12.5 10/3/uL (4.5-10.5)
[2016-08-10 05:01] LABS: CHLORIDE, SERUM 102 MMOL/L (96-112); HEMATOCRIT 20.1 % (40.0-51.0); HEMOGLOBIN 6.7 g/dL (13.6-17.8); PHOSPHORUS, SERUM 4.2 MG/DL (2.5-4.5); POTASSIUM, SERUM 4.9 MMOL/L (3.5-5.3)
[2016-08-10 05:04] LABS: BUN (BLOOD UREA NITROGEN) 139 MG/DL (6-23); CO2 (CARBON DIOXIDE) 19 MMOL/L (24-34); CREATININE 3.12 MG/DL (0.70-1.30); GFR AFRICAN AMERICAN 22 ML/MIN (>=60); GFR NON AFRICAN AMERICAN 19 ML/MIN (>=60); GLUCOSE, SERUM 99 MG/DL (60-99); SODIUM, SERUM 134 MMOL/L (135-148)
[2016-08-10 06:11] LABS: BASOPHILS 0.2 %; BASOPHILS ABSOLUTE 0.03 10/3/uL (0.0-0.16); EOSINOPHILS 3.1 %; IMMATURE GRANULOCYTES 0.3 %; IMMATURE GRANULOCYTES ABSOLUTE 0.04 10/3/uL (0.0-0.11); LYMPHOCYTES 13.1 %; LYMPHOCYTES ABSOLUTE 1.67 10/3/uL (0.67-4.30); MANUAL DIFF NO %; MONOCYTES 9.5 %; MONOCYTES ABSOLUTE 1.21 10/3/uL (0.21-1.20); NEUTROPHILS 73.8 %; NEUTROPHILS ABSOLUTE 9.38 10/3/uL (2.02-8.40)
[2016-08-11 07:04] LABS: BASOPHILS 0.4 %; BASOPHILS ABSOLUTE 0.05 10/3/uL (0.0-0.16); EOSINOPHILS 3.2 %; EOSINOPHILS ABSOLUTE 0.37 10/3/uL (0.0-0.53); IMMATURE GRANULOCYTES 0.2 %; IMMATURE GRANULOCYTES ABSOLUTE 0.02 10/3/uL (0.0-0.11); LYMPHOCYTES 14.7 %; LYMPHOCYTES ABSOLUTE 1.69 10/3/uL (0.67-4.30); MEAN CORPUS HGB CONC 33.5 g/dL (32.0-36.0); MEAN CORPUSCULAR HEMOGLOB 30.3 pg (26.0-34.0); MEAN CORPUSCULAR VOLUME 90.7 fL (80-100); MEAN PLATELET VOLUME 11.1 fL (9.2-13.0); MONOCYTES 10.1 %; MONOCYTES ABSOLUTE 1.16 10/3/uL (0.21-1.20); NEUTROPHILS 71.4 %; NEUTROPHILS ABSOLUTE 8.22 10/3/uL (2.02-8.40); PLATELET COUNT 365 10/3/uL (150-400); RBC DISTRIBUTION WIDTH 16.2 % (12.0-16.0); WHITE BLOOD CELLS 11.5 10/3/uL (4.5-10.5)
[2016-08-11 07:09] LABS: A/G RATIO 0.2 (0.7-1.9); ALBUMIN 1.2 G/DL (3.5-5.0); ALKALINE PHOSPHATASE 143 U/L (45-117); CHLORIDE, SERUM 106 MMOL/L (96-112); CO2 (CARBON DIOXIDE) 21 MMOL/L (24-34); GLOBULIN 6.2 G/DL (2.5-4.1); POTASSIUM, SERUM 5.8 MMOL/L (3.5-5.3); PREALBUMIN 8.4 MG/DL (17.0-43.0); SGOT(AST) 61 U/L (5-40); SGPT(ALT) 51 U/L (5-65); SODIUM, SERUM 139 MMOL/L (135-148); TOTAL BILIRUBIN 1.4 MG/DL (0-1.2); TOTAL PROTEIN 7.4 G/DL (6.0-8.5)
[2016-08-11 07:10] LABS: BUN (BLOOD UREA NITROGEN) 170 MG/DL (6-23); CALCIUM, SERUM 9.4 MG/DL (8.5-10.4); GFR AFRICAN AMERICAN 16 ML/MIN (>=60); GFR NON AFRICAN AMERICAN 14 ML/MIN (>=60); GLUCOSE, SERUM 193 MG/DL (60-99); HEMATOCRIT 26.3 % (40.0-51.0); HEMOGLOBIN 8.8 g/dL (13.6-17.8); PHOSPHORUS, SERUM 6.2 MG/DL (2.5-4.5)
[2016-08-11 07:11] LABS: MANUAL DIFF NO %
[2016-08-11 17:08] LABS: ALBUMIN 1.3 G/DL (3.5-5.0); CALCIUM, SERUM 9.4 MG/DL (8.5-10.4); CHLORIDE, SERUM 106 MMOL/L (96-112); CO2 (CARBON DIOXIDE) 20 MMOL/L (24-34); CREATININE 4.06 MG/DL (0.70-1.30); GFR AFRICAN AMERICAN 16 ML/MIN (>=60); GFR NON AFRICAN AMERICAN 14 ML/MIN (>=60); GLUCOSE, SERUM 209 MG/DL (60-99); PHOSPHORUS, SERUM 6.1 MG/DL (2.5-4.5); POTASSIUM, SERUM 5.6 MMOL/L (3.5-5.3); SODIUM, SERUM 139 MMOL/L (135-148)
[2016-08-11 17:12] LABS: BUN (BLOOD UREA NITROGEN) 162 MG/DL (6-23)
[2016-08-12 04:43] LABS: BASOPHILS 0.3 %; BASOPHILS ABSOLUTE 0.03 10/3/uL (0.0-0.16); EOSINOPHILS ABSOLUTE 0.48 10/3/uL (0.0-0.53); HEMATOCRIT 26.1 % (40.0-51.0); HEMOGLOBIN 8.7 g/dL (13.6-17.8); IMMATURE GRANULOCYTES 0.3 %; IMMATURE GRANULOCYTES ABSOLUTE 0.03 10/3/uL (0.0-0.11); LYMPHOCYTES 13.3 %; LYMPHOCYTES ABSOLUTE 1.59 10/3/uL (0.67-4.30); MEAN CORPUS HGB CONC 33.3 g/dL (32.0-36.0); MEAN CORPUSCULAR HEMOGLOB 30.3 pg (26.0-34.0); MEAN CORPUSCULAR VOLUME 90.9 fL (80-100); MEAN PLATELET VOLUME 11.3 fL (9.2-13.0); MONOCYTES 7.6 %; MONOCYTES ABSOLUTE 0.91 10/3/uL (0.21-1.20); NEUTROPHILS 74.5 %; NEUTROPHILS ABSOLUTE 8.88 10/3/uL (2.02-8.40); PLATELET COUNT 362 10/3/uL (150-400); RBC DISTRIBUTION WIDTH 16.2 % (12.0-16.0); RED CELL COUNT 2.87 10/6/uL (4.7-6.1); WHITE BLOOD CELLS 11.9 10/3/uL (4.5-10.5)
[2016-08-12 04:52] LABS: MANUAL DIFF NO %
[2016-08-12 04:56] LABS: CALCIUM, SERUM 8.9 MG/DL (8.5-10.4); CHLORIDE, SERUM 106 MMOL/L (96-112); CK-MB 5.7 NG/ML; CO2 (CARBON DIOXIDE) 22 MMOL/L (24-34); CREATININE 3.76 MG/DL (0.70-1.30); GFR AFRICAN AMERICAN 18 ML/MIN (>=60); GFR NON AFRICAN AMERICAN 15 ML/MIN (>=60); GLUCOSE, SERUM 172 MG/DL (60-99); PHOSPHORUS, SERUM 5.4 MG/DL (2.5-4.5); POTASSIUM, SERUM 5.3 MMOL/L (3.5-5.3); SODIUM, SERUM 141 MMOL/L (135-148)
[2016-08-12 04:58] LABS: BUN (BLOOD UREA NITROGEN) 170 MG/DL (6-23); CKMB INDEX (NOT ORD) 5.2; CPK 110 U/L (0-200)
[2016-08-13 04:05] LABS: BASOPHILS 0.3 %; BASOPHILS ABSOLUTE 0.03 10/3/uL (0.0-0.16); EOSINOPHILS 5.8 %; EOSINOPHILS ABSOLUTE 0.61 10/3/uL (0.0-0.53); HEMATOCRIT 25.2 % (40.0-51.0); HEMOGLOBIN 8.2 g/dL (13.6-17.8); IMMATURE GRANULOCYTES 0.2 %; IMMATURE GRANULOCYTES ABSOLUTE 0.02 10/3/uL (0.0-0.11); LYMPHOCYTES 12.9 %; LYMPHOCYTES ABSOLUTE 1.35 10/3/uL (0.67-4.30); MEAN CORPUS HGB CONC 32.5 g/dL (32.0-36.0); MEAN CORPUSCULAR HEMOGLOB 29.8 pg (26.0-34.0); MEAN CORPUSCULAR VOLUME 91.6 fL (80-100); MONOCYTES 8.7 %; MONOCYTES ABSOLUTE 0.91 10/3/uL (0.21-1.20); NEUTROPHILS 72.1 %; NEUTROPHILS ABSOLUTE 7.58 10/3/uL (2.02-8.40); PLATELET COUNT 346 10/3/uL (150-400); RBC DISTRIBUTION WIDTH 16.1 % (12.0-16.0); RED CELL COUNT 2.75 10/6/uL (4.7-6.1); WHITE BLOOD CELLS 10.5 10/3/uL (4.5-10.5)
[2016-08-13 04:09] LABS: MANUAL DIFF NO %
[2016-08-13 04:46] LABS: CHLORIDE, SERUM 106 MMOL/L (96-112); CO2 (CARBON DIOXIDE) 24 MMOL/L (24-34); CREATININE 3.58 MG/DL (0.70-1.30); GFR AFRICAN AMERICAN 19 ML/MIN (>=60); GFR NON AFRICAN AMERICAN 16 ML/MIN (>=60); GLUCOSE, SERUM 169 MG/DL (60-99); PHOSPHORUS, SERUM 6.3 MG/DL (2.5-4.5); POTASSIUM, SERUM 4.4 MMOL/L (3.5-5.3); SGOT(AST) 36 U/L (5-40); SGPT(ALT) 45 U/L (5-65); SODIUM, SERUM 144 MMOL/L (135-148); TOTAL BILIRUBIN 1.2 MG/DL (0-1.2); TOTAL PROTEIN 6.4 G/DL (6.0-8.5)
[2016-08-13 04:50] LABS: ALKALINE PHOSPHATASE 116 U/L (45-117); INDIRECT BILIRUBIN(NOT ORDER) 0.2 MG/DL (0.1-0.9)
[2016-08-13 05:02] LABS: BUN (BLOOD UREA NITROGEN) 170 MG/DL (6-23)
[2016-08-14 05:20] LABS: BASOPHILS 0.3 %; BASOPHILS ABSOLUTE 0.04 10/3/uL (0.0-0.16); EOSINOPHILS 4.4 %; EOSINOPHILS ABSOLUTE 0.52 10/3/uL (0.0-0.53); HEMATOCRIT 25.4 % (40.0-51.0); HEMOGLOBIN 8.4 g/dL (13.6-17.8); IMMATURE GRANULOCYTES 0.3 %; IMMATURE GRANULOCYTES ABSOLUTE 0.03 10/3/uL (0.0-0.11); LYMPHOCYTES 12.5 %; LYMPHOCYTES ABSOLUTE 1.47 10/3/uL (0.67-4.30); MEAN CORPUS HGB CONC 33.1 g/dL (32.0-36.0); MEAN CORPUSCULAR HEMOGLOB 30.5 pg (26.0-34.0); MEAN CORPUSCULAR VOLUME 92.4 fL (80-100); MEAN PLATELET VOLUME 10.9 fL (9.2-13.0); MONOCYTES 8.4 %; MONOCYTES ABSOLUTE 0.99 10/3/uL (0.21-1.20); NEUTROPHILS 74.1 %; PLATELET COUNT 332 10/3/uL (150-400); RBC DISTRIBUTION WIDTH 15.9 % (12.0-16.0); RED CELL COUNT 2.75 10/6/uL (4.7-6.1); WHITE BLOOD CELLS 11.8 10/3/uL (4.5-10.5)
[2016-08-14 05:23] LABS: MANUAL DIFF NO %
[2016-08-14 05:31] LABS: CHLORIDE, SERUM 107 MMOL/L (96-112); CO2 (CARBON DIOXIDE) 25 MMOL/L (24-34); CREATININE 3.51 MG/DL (0.70-1.30); GFR AFRICAN AMERICAN 19 ML/MIN (>=60); GFR NON AFRICAN AMERICAN 17 ML/MIN (>=60); POTASSIUM, SERUM 4.8 MMOL/L (3.5-5.3); SODIUM, SERUM 145 MMOL/L (135-148)
[2016-08-14 06:10] LABS: CALCIUM, SERUM 9.2 MG/DL (8.5-10.4); GLUCOSE, SERUM 254 MG/DL (60-99); PHOSPHORUS, SERUM 5.3 MG/DL (2.5-4.5)
[2016-08-14 06:19] LABS: BUN (BLOOD UREA NITROGEN) 163 MG/DL (6-23)
[2016-08-15 05:36] LABS: BASOPHILS 0.5 %; BASOPHILS ABSOLUTE 0.05 10/3/uL (0.0-0.16); EOSINOPHILS 4.5 %; EOSINOPHILS ABSOLUTE 0.49 10/3/uL (0.0-0.53); HEMATOCRIT 24.5 % (40.0-51.0); HEMOGLOBIN 7.8 g/dL (13.6-17.8); IMMATURE GRANULOCYTES 0.4 %; IMMATURE GRANULOCYTES ABSOLUTE 0.04 10/3/uL (0.0-0.11); LYMPHOCYTES 12.4 %; LYMPHOCYTES ABSOLUTE 1.35 10/3/uL (0.67-4.30); MEAN CORPUS HGB CONC 31.8 g/dL (32.0-36.0); MEAN CORPUSCULAR HEMOGLOB 29.7 pg (26.0-34.0); MEAN CORPUSCULAR VOLUME 93.2 fL (80-100); MEAN PLATELET VOLUME 11.2 fL (9.2-13.0); MONOCYTES 8.6 %; MONOCYTES ABSOLUTE 0.94 10/3/uL (0.21-1.20); NEUTROPHILS 73.6 %; NEUTROPHILS ABSOLUTE 8.04 10/3/uL (2.02-8.40); PLATELET COUNT 314 10/3/uL (150-400); RBC DISTRIBUTION WIDTH 16.1 % (12.0-16.0); RED CELL COUNT 2.63 10/6/uL (4.7-6.1); WHITE BLOOD CELLS 10.9 10/3/uL (4.5-10.5)
[2016-08-15 05:37] LABS: MANUAL DIFF NO %
[2016-08-15 05:51] LABS: CALCIUM, SERUM 9.3 MG/DL (8.5-10.4); CHLORIDE, SERUM 109 MMOL/L (96-112); CO2 (CARBON DIOXIDE) 25 MMOL/L (24-34); CREATININE 3.43 MG/DL (0.70-1.30); GFR AFRICAN AMERICAN 20 ML/MIN (>=60); GFR NON AFRICAN AMERICAN 17 ML/MIN (>=60); GLUCOSE, SERUM 227 MG/DL (60-99); PHOSPHORUS, SERUM 4.7 MG/DL (2.5-4.5); POTASSIUM, SERUM 4.7 MMOL/L (3.5-5.3); SODIUM, SERUM 146 MMOL/L (135-148)
[2016-08-15 06:05] LABS: BUN (BLOOD UREA NITROGEN) 165 MG/DL (6-23)
[2016-08-16 04:39] LABS: BASOPHILS 0.6 %; BASOPHILS ABSOLUTE 0.06 10/3/uL (0.0-0.16); EOSINOPHILS 7.4 %; EOSINOPHILS ABSOLUTE 0.74 10/3/uL (0.0-0.53); HEMATOCRIT 23.2 % (40.0-51.0); HEMOGLOBIN 7.6 g/dL (13.6-17.8); IMMATURE GRANULOCYTES 0.1 %; IMMATURE GRANULOCYTES ABSOLUTE 0.01 10/3/uL (0.0-0.11); LYMPHOCYTES 13.4 %; LYMPHOCYTES ABSOLUTE 1.33 10/3/uL (0.67-4.30); MEAN CORPUS HGB CONC 32.8 g/dL (32.0-36.0); MEAN CORPUSCULAR HEMOGLOB 30.4 pg (26.0-34.0); MEAN CORPUSCULAR VOLUME 92.8 fL (80-100); MEAN PLATELET VOLUME 11.2 fL (9.2-13.0); MONOCYTES 4.3 %; MONOCYTES ABSOLUTE 0.43 10/3/uL (0.21-1.20); NEUTROPHILS 74.2 %; NEUTROPHILS ABSOLUTE 7.37 10/3/uL (2.02-8.40); PLATELET COUNT 297 10/3/uL (150-400); WHITE BLOOD CELLS 9.9 10/3/uL (4.5-10.5)
[2016-08-16 04:40] LABS: MANUAL DIFF NO %
[2016-08-16 04:49] LABS: CALCIUM, SERUM 9.2 MG/DL (8.5-10.4); CHLORIDE, SERUM 108 MMOL/L (96-112); CO2 (CARBON DIOXIDE) 29 MMOL/L (24-34); CREATININE 3.56 MG/DL (0.70-1.30); GFR AFRICAN AMERICAN 19 ML/MIN (>=60); GFR NON AFRICAN AMERICAN 16 ML/MIN (>=60); GLUCOSE, SERUM 250 MG/DL (60-99); PHOSPHORUS, SERUM 4.6 MG/DL (2.5-4.5); POTASSIUM, SERUM 4.9 MMOL/L (3.5-5.3); SODIUM, SERUM 146 MMOL/L (135-148)
[2016-08-16 05:02] LABS: BUN (BLOOD UREA NITROGEN) 170 MG/DL (6-23)
[2016-08-17 05:40] LABS: BASOPHILS 0.7 %; BASOPHILS ABSOLUTE 0.07 10/3/uL (0.0-0.16); EOSINOPHILS 7.4 %; EOSINOPHILS ABSOLUTE 0.79 10/3/uL (0.0-0.53); HEMATOCRIT 22.3 % (40.0-51.0); HEMOGLOBIN 7.3 g/dL (13.6-17.8); IMMATURE GRANULOCYTES 0.2 %; IMMATURE GRANULOCYTES ABSOLUTE 0.02 10/3/uL (0.0-0.11); LYMPHOCYTES ABSOLUTE 2.15 10/3/uL (0.67-4.30); MEAN CORPUS HGB CONC 32.7 g/dL (32.0-36.0); MEAN CORPUSCULAR HEMOGLOB 30.4 pg (26.0-34.0); MEAN CORPUSCULAR VOLUME 92.9 fL (80-100); MEAN PLATELET VOLUME 11.5 fL (9.2-13.0); MONOCYTES 6.2 %; MONOCYTES ABSOLUTE 0.67 10/3/uL (0.21-1.20); NEUTROPHILS 65.5 %; NEUTROPHILS ABSOLUTE 7.03 10/3/uL (2.02-8.40); PLATELET COUNT 273 10/3/uL (150-400); WHITE BLOOD CELLS 10.7 10/3/uL (4.5-10.5)
[2016-08-17 05:45] LABS: MANUAL DIFF NO %
[2016-08-17 05:49] LABS: CALCIUM, SERUM 9.5 MG/DL (8.5-10.4); CHLORIDE, SERUM 109 MMOL/L (96-112); CO2 (CARBON DIOXIDE) 25 MMOL/L (24-34); CREATININE 3.85 MG/DL (0.70-1.30); GFR AFRICAN AMERICAN 17 ML/MIN (>=60); GFR NON AFRICAN AMERICAN 15 ML/MIN (>=60); POTASSIUM, SERUM 5.5 MMOL/L (3.5-5.3); SODIUM, SERUM 147 MMOL/L (135-148)
[2016-08-17 05:57] LABS: BUN (BLOOD UREA NITROGEN) 177 MG/DL (6-23); GLUCOSE, SERUM 190 MG/DL (60-99)
[2016-08-18 05:05] LABS: CALCIUM, SERUM 8.9 MG/DL (8.5-10.4); CHLORIDE, SERUM 108 MMOL/L (96-112); CO2 (CARBON DIOXIDE) 25 MMOL/L (24-34); CREATININE 3.92 MG/DL (0.70-1.30); GFR AFRICAN AMERICAN 17 ML/MIN (>=60); GFR NON AFRICAN AMERICAN 14 ML/MIN (>=60); PHOSPHORUS, SERUM 4.9 MG/DL (2.5-4.5); POTASSIUM, SERUM 5.3 MMOL/L (3.5-5.3); SODIUM, SERUM 143 MMOL/L (135-148)
[2016-08-18 05:10] LABS: ALBUMIN 2.5 G/DL (3.5-5.0); BUN (BLOOD UREA NITROGEN) 170 MG/DL (6-23); GLUCOSE, SERUM 245 MG/DL (60-99)
[2016-08-19 04:20] LABS: ALBUMIN 2.7 G/DL (3.5-5.0); CHLORIDE, SERUM 109 MMOL/L (96-112); CO2 (CARBON DIOXIDE) 25 MMOL/L (24-34); CREATININE 4.08 MG/DL (0.70-1.30); GFR AFRICAN AMERICAN 16 ML/MIN (>=60); GFR NON AFRICAN AMERICAN 14 ML/MIN (>=60); GLUCOSE, SERUM 232 MG/DL (60-99); PHOSPHORUS, SERUM 5.1 MG/DL (2.5-4.5); POTASSIUM, SERUM 5.7 MMOL/L (3.5-5.3); SODIUM, SERUM 144 MMOL/L (135-148)
[2016-08-19 04:34] LABS: BUN (BLOOD UREA NITROGEN) 182 MG/DL (6-23); CPK 53 U/L (0-200)
[2016-08-20 09:19] LABS: ALBUMIN 2.7 G/DL (3.5-5.0); CALCIUM, SERUM 9.3 MG/DL (8.5-10.4); CHLORIDE, SERUM 108 MMOL/L (96-112); CO2 (CARBON DIOXIDE) 24 MMOL/L (24-34); CREATININE 4.29 MG/DL (0.70-1.30); GFR AFRICAN AMERICAN 15 ML/MIN (>=60); GFR NON AFRICAN AMERICAN 13 ML/MIN (>=60); PHOSPHORUS, SERUM 4.9 MG/DL (2.5-4.5); POTASSIUM, SERUM 5.3 MMOL/L (3.5-5.3); SODIUM, SERUM 144 MMOL/L (135-148)
[2016-08-20 09:20] LABS: BUN (BLOOD UREA NITROGEN) 185 MG/DL (6-23); GLUCOSE, SERUM 168 MG/DL (60-99)
[2016-08-21 04:37] LABS: MEAN CORPUSCULAR HEMOGLOB 30.5 pg (26.0-34.0); MEAN CORPUSCULAR VOLUME 92.4 fL (80-100); MEAN PLATELET VOLUME 12.1 fL (9.2-13.0); PLATELET COUNT 201 10/3/uL (150-400); RBC DISTRIBUTION WIDTH 15.8 % (12.0-16.0); RED CELL COUNT 2.23 10/6/uL (4.7-6.1); WHITE BLOOD CELLS 8.8 10/3/uL (4.5-10.5)
[2016-08-21 04:39] LABS: HEMATOCRIT 20.6 % (40.0-51.0); HEMOGLOBIN 6.8 g/dL (13.6-17.8)
[2016-08-21 04:40] LABS: MANUAL DIFF YES %
[2016-08-21 04:58] LABS: CALCIUM, SERUM 9.6 MG/DL (8.5-10.4); CHLORIDE, SERUM 110 MMOL/L (96-112); CO2 (CARBON DIOXIDE) 23 MMOL/L (24-34); CREATININE 4.69 MG/DL (0.70-1.30); GFR AFRICAN AMERICAN 13 ML/MIN (>=60); GFR NON AFRICAN AMERICAN 12 ML/MIN (>=60); GLUCOSE, SERUM 135 MG/DL (60-99); PHOSPHORUS, SERUM 4.7 MG/DL (2.5-4.5); SODIUM, SERUM 148 MMOL/L (135-148)
[2016-08-21 04:59] LABS: BUN (BLOOD UREA NITROGEN) 190 MG/DL (6-23)
[2016-08-21 05:12] LABS: BAND NEUTROPHILS 1 %; EOSINOPHILS 4 %; EOSINOPHILS ABSOLUTE (CALC) 0.35 10/3/uL (0.0-0.53); LYMPHOCYTES 16 %; LYMPHOCYTES ABSOLUTE (CALC) 1.41 10/3/uL (0.67-4.30); MONOCYTES 5 %; MONOCYTES ABSOLUTE (CALC) 0.44 10/3/uL (0.21-1.20); SEGMENTED NEUTROPHIL (0) 74 %; TOTAL NUCLEATED CELLS 100
[2016-08-21 05:13] LABS: PLATELET ESTIMATE ADQ (ADEQUATE); POIKILOCYTOSIS 1+ (5-10/OIF) (0-5/OIF); TARGET CELLS FEW (3-10/OIF) (0-1/OIF)
[2016-08-22 04:46] LABS: ALBUMIN 2.8 G/DL (3.5-5.0); BUN (BLOOD UREA NITROGEN) 196 MG/DL (6-23); CALCIUM, SERUM 9.3 MG/DL (8.5-10.4); CHLORIDE, SERUM 109 MMOL/L (96-112); CO2 (CARBON DIOXIDE) 23 MMOL/L (24-34); GFR AFRICAN AMERICAN 13 ML/MIN (>=60); GFR NON AFRICAN AMERICAN 11 ML/MIN (>=60); GLUCOSE, SERUM 161 MG/DL (60-99); PHOSPHORUS, SERUM 4.5 MG/DL (2.5-4.5); SODIUM, SERUM 148 MMOL/L (135-148)
[2016-08-24 08:49] LABS: BASOPHILS 0.3 %; BASOPHILS ABSOLUTE 0.04 10/3/uL (0.0-0.16); EOSINOPHILS 4.4 %; EOSINOPHILS ABSOLUTE 0.53 10/3/uL (0.0-0.53); IMMATURE GRANULOCYTES 0.2 %; IMMATURE GRANULOCYTES ABSOLUTE 0.02 10/3/uL (0.0-0.11); LYMPHOCYTES 12.6 %; MEAN CORPUS HGB CONC 33.5 g/dL (32.0-36.0); MEAN CORPUSCULAR HEMOGLOB 30.3 pg (26.0-34.0); MEAN CORPUSCULAR VOLUME 90.5 fL (80-100); MEAN PLATELET VOLUME 12.2 fL (9.2-13.0); MONOCYTES 4.2 %; NEUTROPHILS 78.3 %; NEUTROPHILS ABSOLUTE 9.35 10/3/uL (2.02-8.40); NUCLEATED RED BLOOD CELLS 0.6 /100WBC (0-0); PLATELET COUNT 200 10/3/uL (150-400); RBC DISTRIBUTION WIDTH 17.5 % (12.0-16.0); WHITE BLOOD CELLS 11.9 10/3/uL (4.5-10.5)
[2016-08-24 08:50] LABS: HEMATOCRIT 24.8 % (40.0-51.0); HEMOGLOBIN 8.3 g/dL (13.6-17.8); MANUAL DIFF NO %; RED CELL COUNT 2.74 10/6/uL (4.7-6.1)
[2016-08-24 08:57] LABS: CALCIUM, SERUM 9.5 MG/DL (8.5-10.4); CHLORIDE, SERUM 109 MMOL/L (96-112); CO2 (CARBON DIOXIDE) 22 MMOL/L (24-34); GFR AFRICAN AMERICAN 11 ML/MIN (>=60); GFR NON AFRICAN AMERICAN 10 ML/MIN (>=60); GLUCOSE, SERUM 166 MG/DL (60-99); POTASSIUM, SERUM 4.5 MMOL/L (3.5-5.3); SODIUM, SERUM 147 MMOL/L (135-148)
[2016-08-24 08:59] LABS: BUN (BLOOD UREA NITROGEN) 209 MG/DL (6-23); CREATININE 5.51 MG/DL (0.70-1.30)
[2016-08-24 19:20] LABS: CPK 55 U/L (0-200)
[2016-08-25 18:40] LABS: ASCORBIC ACID (UR NOT ORDER) NEG (NEG); BILIRUBIN, URINE NEGATIVE (NEG); KETONE, URINE NEGATIVE (NEG); LEUKOCYTE ESTERASE(NOT OR LARGE (NEG); WBC (NOT ORDERED) (RFLEX) 98 (0-5)
[2016-08-26 06:57] LABS: HEMATOCRIT 26.2 % (40.0-51.0); HEMOGLOBIN 8.7 g/dL (13.6-17.8); MEAN CORPUS HGB CONC 33.2 g/dL (32.0-36.0); MEAN CORPUSCULAR HEMOGLOB 30.3 pg (26.0-34.0); MEAN CORPUSCULAR VOLUME 91.3 fL (80-100); MEAN PLATELET VOLUME 12.2 fL (9.2-13.0); PLATELET COUNT 208 10/3/uL (150-400); RBC DISTRIBUTION WIDTH 18.1 % (12.0-16.0); RED CELL COUNT 2.87 10/6/uL (4.7-6.1); WHITE BLOOD CELLS 9.4 10/3/uL (4.5-10.5)
[2016-08-26 06:58] LABS: MANUAL DIFF YES %
[2016-08-26 07:15] LABS: CALCIUM, SERUM 9.7 MG/DL (8.5-10.4); CHLORIDE, SERUM 107 MMOL/L (96-112); CO2 (CARBON DIOXIDE) 21 MMOL/L (24-34); GLUCOSE, SERUM 192 MG/DL (60-99); POTASSIUM, SERUM 4.3 MMOL/L (3.5-5.3); SODIUM, SERUM 145 MMOL/L (135-148)
[2016-08-26 07:16] LABS: BUN (BLOOD UREA NITROGEN) 218 MG/DL (6-23); CREATININE 6.23 MG/DL (0.70-1.30); GFR AFRICAN AMERICAN 10 ML/MIN (>=60); GFR NON AFRICAN AMERICAN 8 ML/MIN (>=60)
[2016-08-26 07:36] LABS: ANISOCYTOSIS 1+ (5-10/OIF) (0-5/OIF); BASOPHILS 1 %; BASOPHILS ABSOLUTE (CALC) 0.09 10/3/uL (0.0-0.16); EOSINOPHILS 6 %; EOSINOPHILS ABSOLUTE (CALC) 0.56 10/3/uL (0.0-0.53); LYMPHOCYTES 20 %; LYMPHOCYTES ABSOLUTE (CALC) 1.88 10/3/uL (0.67-4.30); MONOCYTES 3 %; MONOCYTES ABSOLUTE (CALC) 0.28 10/3/uL (0.21-1.20); NEUTROPHILS ABSOLUTE (CALC) 6.58 10/3/uL (2.02-8.40); PLATELET ESTIMATE ADQ (ADEQUATE); SEGMENTED NEUTROPHIL (0) 70 %; TOTAL NUCLEATED CELLS 100
[2016-08-26 07:37] LABS: TARGET CELLS FEW (3-10/OIF) (0-1/OIF)
[2016-08-26 18:15] LABS: INTERNATIONAL NORMAL RATI 1.9 UNITS (-); PROTIME (NOT ORD) 21.4 SEC (12.0-14.5)
[2016-08-27 04:50] LABS: INTERNATIONAL NORMAL RATI 1.8 UNITS (-); PROTIME (NOT ORD) 20.8 SEC (12.0-14.5)
[2016-08-27 14:02] LABS: ASCORBIC ACID (UR NOT ORDER) NEG (NEG); BILIRUBIN, URINE NEGATIVE (NEG); KETONE, URINE NEGATIVE (NEG); LEUKOCYTE ESTERASE(NOT OR LARGE (NEG)
[2016-08-27 14:03] LABS: WBC (NOT ORDERED) (RFLEX) > 182 (0-5)
[2016-08-28 04:31] LABS: HEMATOCRIT 26.8 % (40.0-51.0); HEMOGLOBIN 8.7 g/dL (13.6-17.8); MEAN CORPUS HGB CONC 32.5 g/dL (32.0-36.0); MEAN CORPUSCULAR HEMOGLOB 30.1 pg (26.0-34.0); MEAN CORPUSCULAR VOLUME 92.7 fL (80-100); MEAN PLATELET VOLUME 12.8 fL (9.2-13.0); PLATELET COUNT 209 10/3/uL (150-400); RBC DISTRIBUTION WIDTH 18.8 % (12.0-16.0); RED CELL COUNT 2.89 10/6/uL (4.7-6.1)
[2016-08-28 04:33] LABS: MANUAL DIFF YES %; WHITE BLOOD CELLS 13.7 10/3/uL (4.5-10.5)
[2016-08-28 04:44] LABS: INTERNATIONAL NORMAL RATI 1.8 UNITS (-); PROTIME (NOT ORD) 20.3 SEC (12.0-14.5)
[2016-08-28 04:48] LABS: CALCIUM, SERUM 9.1 MG/DL (8.5-10.4); CHLORIDE, SERUM 106 MMOL/L (96-112); CO2 (CARBON DIOXIDE) 21 MMOL/L (24-34); CREATININE 6.62 MG/DL (0.70-1.30); GFR AFRICAN AMERICAN 9 ML/MIN (>=60); GFR NON AFRICAN AMERICAN 8 ML/MIN (>=60); POTASSIUM, SERUM 4.9 MMOL/L (3.5-5.3); SODIUM, SERUM 145 MMOL/L (135-148)
[2016-08-28 04:53] LABS: BUN (BLOOD UREA NITROGEN) 245 MG/DL (6-23); GLUCOSE, SERUM 139 MG/DL (60-99)
[2016-08-28 05:08] LABS: BASOPHILS 1 %; BASOPHILS ABSOLUTE (CALC) 0.14 10/3/uL (0.0-0.16); EOSINOPHILS 2 %; EOSINOPHILS ABSOLUTE (CALC) 0.27 10/3/uL (0.0-0.53); LYMPHOCYTES 6 %; LYMPHOCYTES ABSOLUTE (CALC) 0.82 10/3/uL (0.67-4.30); MONOCYTES 4 %; MONOCYTES ABSOLUTE (CALC) 0.55 10/3/uL (0.21-1.20); NEUTROPHILS ABSOLUTE (CALC) 11.92 10/3/uL (2.02-8.40); SEGMENTED NEUTROPHIL (0) 87 %; TOTAL NUCLEATED CELLS 100
[2016-08-28 05:09] LABS: BURR CELLS 1+ (3-10/OIF) (0-2/OIF); PLATELET ESTIMATE ADQ (ADEQUATE); TARGET CELLS OCC (1-2/OIF) (0-1/OIF)
[2016-08-29 04:29] LABS: INTERNATIONAL NORMAL RATI 1.7 UNITS (-); PROTIME (NOT ORD) 19.9 SEC (12.0-14.5)
[2016-08-30 05:40] LABS: HEMATOCRIT 27.2 % (40.0-51.0); HEMOGLOBIN 8.9 g/dL (13.6-17.8); MEAN CORPUS HGB CONC 32.7 g/dL (32.0-36.0); MEAN CORPUSCULAR VOLUME 91.6 fL (80-100); MEAN PLATELET VOLUME 12.4 fL (9.2-13.0); RBC DISTRIBUTION WIDTH 19.5 % (12.0-16.0); RED CELL COUNT 2.97 10/6/uL (4.7-6.1)
[2016-08-30 05:41] LABS: INTERNATIONAL NORMAL RATI 1.9 UNITS (-); PROTIME (NOT ORD) 21.6 SEC (12.0-14.5)
[2016-08-30 05:54] LABS: ALBUMIN 2.4 G/DL (3.5-5.0); CALCIUM, SERUM 9.4 MG/DL (8.5-10.4); CHLORIDE, SERUM 104 MMOL/L (96-112); CO2 (CARBON DIOXIDE) 18 MMOL/L (24-34); CREATININE 7.09 MG/DL (0.70-1.30); GFR AFRICAN AMERICAN 8 ML/MIN (>=60); GFR NON AFRICAN AMERICAN 7 ML/MIN (>=60); GLUCOSE, SERUM 163 MG/DL (60-99); PLATELET COUNT 283 10/3/uL (150-400); POTASSIUM, SERUM 4.9 MMOL/L (3.5-5.3); SODIUM, SERUM 143 MMOL/L (135-148); WHITE BLOOD CELLS 7.7 10/3/uL (4.5-10.5)
[2016-08-30 05:55] LABS: BUN (BLOOD UREA NITROGEN) 259 MG/DL (6-23); MANUAL DIFF YES %; PHOSPHORUS, SERUM 6.5 MG/DL (2.5-4.5)
[2016-08-30 06:39] LABS: ANISOCYTOSIS 1+ (5-10/OIF) (0-5/OIF); BAND NEUTROPHILS 2 %; EOSINOPHILS 2 %; EOSINOPHILS ABSOLUTE (CALC) 0.15 10/3/uL (0.0-0.53); IMMATURE GRANS ABSOLUTE (CALC) 0.08 10/3/uL (0.0-0.11); LYMPHOCYTES 19 %; LYMPHOCYTES ABSOLUTE (CALC) 1.46 10/3/uL (0.67-4.30); MACROCYTES 1+ (5-10/OIF) (0-5/OIF); METAMYELOCYTES 1 %; MONOCYTES 7 %; MONOCYTES ABSOLUTE (CALC) 0.54 10/3/uL (0.21-1.20); NEUTROPHILS ABSOLUTE (CALC) 5.47 10/3/uL (2.02-8.40); PLATELET ESTIMATE ADQ (ADEQUATE); POLYCHROMASIA 1+ (2-5/OIF) (0-1/OIF); SEGMENTED NEUTROPHIL (0) 69 %; TOTAL NUCLEATED CELLS 100
[2016-08-30 06:40] LABS: ELLIPTOCYTES 1+ (3-10/OIF) (0-2/OIF); HELMET CELLS OCC (0-2/OIF); MICROCYTES 1+ (5-10/OIF) (0-5/OIF); SPHEROCYTES OCC (0-2/OIF); TARGET CELLS FEW (3-10/OIF) (0-1/OIF); TEARDROP SHAPED RBCS OCC (0-2/OIF)
[2016-08-31 04:31] LABS: INTERNATIONAL NORMAL RATI 2.1 UNITS (-); PROTIME (NOT ORD) 23.4 SEC (12.0-14.5)
[2016-09-01 04:28] LABS: BASOPHILS 0.6 %; BASOPHILS ABSOLUTE 0.05 10/3/uL (0.0-0.16); EOSINOPHILS ABSOLUTE 0.24 10/3/uL (0.0-0.53); HEMATOCRIT 27.8 % (40.0-51.0); IMMATURE GRANULOCYTES 0.1 %; IMMATURE GRANULOCYTES ABSOLUTE 0.01 10/3/uL (0.0-0.11); LYMPHOCYTES 13.4 %; LYMPHOCYTES ABSOLUTE 1.06 10/3/uL (0.67-4.30); MEAN CORPUS HGB CONC 32.4 g/dL (32.0-36.0); MEAN CORPUSCULAR HEMOGLOB 30.2 pg (26.0-34.0); MEAN CORPUSCULAR VOLUME 93.3 fL (80-100); MEAN PLATELET VOLUME 12.1 fL (9.2-13.0); MONOCYTES 5.2 %; MONOCYTES ABSOLUTE 0.41 10/3/uL (0.21-1.20); NEUTROPHILS 77.7 %; NEUTROPHILS ABSOLUTE 6.16 10/3/uL (2.02-8.40); PLATELET COUNT 302 10/3/uL (150-400); RBC DISTRIBUTION WIDTH 19.9 % (12.0-16.0); RED CELL COUNT 2.98 10/6/uL (4.7-6.1); WHITE BLOOD CELLS 7.9 10/3/uL (4.5-10.5)
[2016-09-01 04:29] LABS: MANUAL DIFF NO %
[2016-09-01 04:35] LABS: INTERNATIONAL NORMAL RATI 2.3 UNITS (-); PROTIME (NOT ORD) 25.4 SEC (12.0-14.5)
[2016-09-01 04:48] LABS: ALBUMIN 2.2 G/DL (3.5-5.0); BUN (BLOOD UREA NITROGEN) 272 MG/DL (6-23); CALCIUM, SERUM 9.4 MG/DL (8.5-10.4); CHLORIDE, SERUM 103 MMOL/L (96-112); CO2 (CARBON DIOXIDE) 19 MMOL/L (24-34); CREATININE 7.29 MG/DL (0.70-1.30); GFR AFRICAN AMERICAN 8 ML/MIN (>=60); GFR NON AFRICAN AMERICAN 7 ML/MIN (>=60); GLUCOSE, SERUM 174 MG/DL (60-99); PHOSPHORUS, SERUM 7.4 MG/DL (2.5-4.5); POTASSIUM, SERUM 5.1 MMOL/L (3.5-5.3); SODIUM, SERUM 141 MMOL/L (135-148)
[2016-09-02 03:53] LABS: HEMOGLOBIN 9.2 g/dL (13.6-17.8); MEAN CORPUS HGB CONC 32.9 g/dL (32.0-36.0); MEAN CORPUSCULAR HEMOGLOB 30.7 pg (26.0-34.0); MEAN CORPUSCULAR VOLUME 93.3 fL (80-100); PLATELET COUNT 295 10/3/uL (150-400); RBC DISTRIBUTION WIDTH 20.2 % (12.0-16.0); WHITE BLOOD CELLS 8.8 10/3/uL (4.5-10.5)
[2016-09-02 03:55] LABS: MANUAL DIFF YES %
[2016-09-02 04:00] LABS: INTERNATIONAL NORMAL RATI 2.5 UNITS (-); PROTIME (NOT ORD) 26.7 SEC (12.0-14.5)
[2016-09-02 04:08] LABS: CALCIUM, SERUM 9.6 MG/DL (8.5-10.4); CHLORIDE, SERUM 101 MMOL/L (96-112); CO2 (CARBON DIOXIDE) 18 MMOL/L (24-34); CREATININE 7.65 MG/DL (0.70-1.30); GFR AFRICAN AMERICAN 7 ML/MIN (>=60); GFR NON AFRICAN AMERICAN 6 ML/MIN (>=60); GLUCOSE, SERUM 158 MG/DL (60-99); POTASSIUM, SERUM 5.5 MMOL/L (3.5-5.3); SODIUM, SERUM 138 MMOL/L (135-148)
[2016-09-02 04:10] LABS: BUN (BLOOD UREA NITROGEN) 292 MG/DL (6-23)
[2016-09-02 04:30] LABS: EOSINOPHILS 2 %; EOSINOPHILS ABSOLUTE (CALC) 0.18 10/3/uL (0.0-0.53); IMMATURE GRANS ABSOLUTE (CALC) 0.09 10/3/uL (0.0-0.11); LYMPHOCYTES 11 %; LYMPHOCYTES ABSOLUTE (CALC) 0.97 10/3/uL (0.67-4.30); METAMYELOCYTES 1 %; MONOCYTES 2 %; MONOCYTES ABSOLUTE (CALC) 0.18 10/3/uL (0.21-1.20); NEUTROPHILS ABSOLUTE (CALC) 7.39 10/3/uL (2.02-8.40); PLATELET ESTIMATE ADQ (ADEQUATE); SEGMENTED NEUTROPHIL (0) 84 %; TOTAL NUCLEATED CELLS 100
[2016-09-02 04:31] LABS: ANISOCYTOSIS 1+ (5-10/OIF) (0-5/OIF)
[2016-09-03 05:25] LABS: INTERNATIONAL NORMAL RATI 2.7 UNITS (-); PROTIME (NOT ORD) 28.6 SEC (12.0-14.5)
[2016-09-03 05:32] LABS: CALCIUM, SERUM 9.5 MG/DL (8.5-10.4); CHLORIDE, SERUM 98 MMOL/L (96-112); CO2 (CARBON DIOXIDE) 17 MMOL/L (24-34); CREATININE 7.88 MG/DL (0.70-1.30); GFR AFRICAN AMERICAN 7 ML/MIN (>=60); GFR NON AFRICAN AMERICAN 6 ML/MIN (>=60); GLUCOSE, SERUM 174 MG/DL (60-99); POTASSIUM, SERUM 5.6 MMOL/L (3.5-5.3); SODIUM, SERUM 135 MMOL/L (135-148)
[2016-09-03 05:33] LABS: BUN (BLOOD UREA NITROGEN) 299 MG/DL (6-23)
[2016-09-04 06:22] LABS: PROTIME (NOT ORD) 30.6 SEC (12.0-14.5)
[2016-09-04 06:32] LABS: BUN (BLOOD UREA NITROGEN) 302 MG/DL (6-23); CALCIUM, SERUM 9.3 MG/DL (8.5-10.4); CHLORIDE, SERUM 95 MMOL/L (96-112); CO2 (CARBON DIOXIDE) 16 MMOL/L (24-34); CREATININE 8.55 MG/DL (0.70-1.30); GFR AFRICAN AMERICAN 7 ML/MIN (>=60); GFR NON AFRICAN AMERICAN 6 ML/MIN (>=60); GLUCOSE, SERUM 148 MG/DL (60-99); POTASSIUM, SERUM 5.9 MMOL/L (3.5-5.3); SODIUM, SERUM 131 MMOL/L (135-148)
[2016-09-05 06:21] LABS: BASOPHILS 0.1 %; BASOPHILS ABSOLUTE 0.01 10/3/uL (0.0-0.16); EOSINOPHILS 0.4 %; EOSINOPHILS ABSOLUTE 0.04 10/3/uL (0.0-0.53); HEMATOCRIT 25.3 % (40.0-51.0); IMMATURE GRANULOCYTES 0.4 %; IMMATURE GRANULOCYTES ABSOLUTE 0.04 10/3/uL (0.0-0.11); LYMPHOCYTES 8.1 %; LYMPHOCYTES ABSOLUTE 0.74 10/3/uL (0.67-4.30); MEAN CORPUS HGB CONC 31.6 g/dL (32.0-36.0); MEAN CORPUSCULAR HEMOGLOB 29.6 pg (26.0-34.0); MEAN CORPUSCULAR VOLUME 93.7 fL (80-100); MONOCYTES 10.5 %; MONOCYTES ABSOLUTE 0.96 10/3/uL (0.21-1.20); NEUTROPHILS 80.5 %; NEUTROPHILS ABSOLUTE 7.34 10/3/uL (2.02-8.40); PLATELET COUNT 264 10/3/uL (150-400); RBC DISTRIBUTION WIDTH 20.6 % (12.0-16.0); WHITE BLOOD CELLS 9.1 10/3/uL (4.5-10.5)
[2016-09-05 06:24] LABS: MANUAL DIFF NO %
[2016-09-05 06:29] LABS: INTERNATIONAL NORMAL RATI 2.8 UNITS (-); PROTIME (NOT ORD) 29.4 SEC (12.0-14.5)
[2016-09-05 06:30] LABS: CALCIUM, SERUM 9.2 MG/DL (8.5-10.4); CHLORIDE, SERUM 93 MMOL/L (96-112); CO2 (CARBON DIOXIDE) 18 MMOL/L (24-34); CREATININE 9.02 MG/DL (0.70-1.30); GFR AFRICAN AMERICAN 6 ML/MIN (>=60); GFR NON AFRICAN AMERICAN 5 ML/MIN (>=60); GLUCOSE, SERUM 194 MG/DL (60-99); SODIUM, SERUM 131 MMOL/L (135-148)
[2016-09-05 06:38] LABS: BUN (BLOOD UREA NITROGEN) 333 MG/DL (6-23)
[2016-09-06 06:03] LABS: INTERNATIONAL NORMAL RATI 2.5 UNITS (-); PROTIME (NOT ORD) 26.8 SEC (12.0-14.5)
[2016-09-07 04:26] LABS: PARTIAL THROMBO TIME 50.7 SEC (22.5-37.2)
[2016-09-07 05:09] LABS: INTERNATIONAL NORMAL RATI 2.5 UNITS (-); PROTIME (NOT ORD) 26.5 SEC (12.0-14.5)
[2016-09-08 04:56] LABS: INTERNATIONAL NORMAL RATI 2.3 UNITS (-); PROTIME (NOT ORD) 24.8 SEC (12.0-14.5)
[2016-09-08 05:07] LABS: CHLORIDE, SERUM 93 MMOL/L (96-112); GFR AFRICAN AMERICAN 5 ML/MIN (>=60); GFR NON AFRICAN AMERICAN 5 ML/MIN (>=60); GLUCOSE, SERUM 180 MG/DL (60-99); SODIUM, SERUM 131 MMOL/L (135-148)
[2016-09-08 05:12] LABS: BUN (BLOOD UREA NITROGEN) 374 MG/DL (6-23); CO2 (CARBON DIOXIDE) 13 MMOL/L (24-34)
== END 2016-09-09 02:36 | disposition expired | DRG 870 ==
LOC: ER 08:54 → CCU 11:30 → IMCU 08-15 16:31
PROVIDERS: Emergency Medicine; Hospitalist; Internal Medicine; Internal Medicine Critical Care Medicine; Internal Medicine Nephrology
PROC: 5A1955Z Respiratory Ventilation, Greater than 96 Consecutive Hours (ICD-10-PCS; principal; 2016-08-09)
PROC: 02HV33Z Insertion of Infusion Device into Superior Vena Cava, Percutaneous Approach (ICD-10-PCS; 2016-08-09)
PROC: 4A02X4A Measurement of Cardiac Electrical Activity, Guidance, External Approach (ICD-10-PCS; 2016-08-09)
DX: A41.9 Sepsis, unspecified organism (principal); J96.21 Acute and chronic respiratory failure with hypoxia; G92 Toxic encephalopathy; E43 Unspecified severe protein-calorie malnutrition; N17.9 Acute kidney failure, unspecified; L89.159 Pressure ulcer of sacral region, unspecified stage; E46 Unspecified protein-calorie malnutrition; Z93.0 Tracheostomy status; N18.6 End stage renal disease; I48.2 Chronic atrial fibrillation; J96.22 Acute and chronic respiratory failure with hypercapnia; I12.0 Hypertensive chronic kidney disease with stage 5 chronic kidney disease or end stage renal disease; D62 Acute posthemorrhagic anemia; J44.9 Chronic obstructive pulmonary disease, unspecified; I25.5 Ischemic cardiomyopathy; I25.10 Atherosclerotic heart disease of native coronary artery without angina pectoris; G40.909 Epilepsy, unspecified, not intractable, without status epilepticus; E11.9 Type 2 diabetes mellitus without complications; I73.9 Peripheral vascular disease, unspecified; N40.0 Benign prostatic hyperplasia without lower urinary tract symptoms; E78.5 Hyperlipidemia, unspecified; G47.33 Obstructive sleep apnea (adult) (pediatric); E87.5 Hyperkalemia; Z79.01 Long term (current) use of anticoagulants; Z95.1 Presence of aortocoronary bypass graft; Z95.810 Presence of automatic (implantable) cardiac defibrillator; S99.922A Unspecified injury of left foot, initial encounter; S99.921A Unspecified injury of right foot, initial encounter; Z66 Do not resuscitate
CPT/HCPCS: 31720; 36415; 36569; 36600; 70450; 71010; 74020; 74176; 76775; 80048; 80053; 80069; 80076; 81001; 82140; 82550; 82553; 82570; 82805; 82962; 83605; 83735; 83880; 83930; 84100; 84133; 84134; 84145; 84300; 84484; 85025; 85610; 85730; 86850; 86900; 86901; 86920; 87040; 87070; 87077; 87086; 87150; 87186; 87205; 87641; 93005; 93321; 93325; 94002; 94003; 94640; 94770; 95816; 95819; 96361; 96365; 99291; A9270-GY; C1751; C8924; C9113; J0610; J0690; J0692; J0878; J1953; J1956; J2185; J2543; J3370; P9016; P9040; P9047; Q9957